=== PATIENT | male | born 1960 | race Caucasian/White ===

== ENCOUNTER 2016-10-30 12:40 | Inpatient (IN) | payer MEDICAID ==
[~2016-10-30] VITALS: Ht 167.6 cm; Wt 65.3 kg
[2016-10-30] VITALS (23 sets, daily range): BP systolic 163–244; BP diastolic 108–177
[2016-10-30] MEDS ORDERED: ALBUTEROL SULFATE/IPRATROPIU 3 ML SOL IH STA (12:47)
--- NOTE | 2016-10-30 12:58 | NUR ---
Patient transferred to bed 3 via wheelchair by tech. MENG evaluating patient at bedside. Addendum: 10/30/16 at 1306 by [facility] PER BLAYNE WREN ORDER PER ORAL.
--- NOTE | 2016-10-30 13:00 | NUR ---
56M BIB SELF C/O SHORTNESS OF BREATH X 4 DAYS; PT NOTED WITH GENERALIZED EDEMA, WITH +2 PITTING EDEMA NOTED TO BILATERAL LOWER EXTREMITIES AT THIS TIME; BL LUNG SOUNDS CLEAR, RR LABORED, DEEP, AND TACHYPNIC AT THIS TIME; PT AA&OX4, PERRLA; PT STATES NO PAIN, N/V/D AT THIS TIME; ABDOMEN FIRM, ROUND, ASCITIC, HYPOACTIVE BOWEL SOUNDS X 4 QUADRANTS; PT NOTED WITH HEALED "BUG BITES" TO ABDOMEN, AND HEALING "BUG BITES" TO BL LEGS; PT STATES " THEY ARE BUG BITES"; NO BLEEDING NOTED TO SITES AT THIS TIME; CLEAR DRAINAGE NOTED TO BL LOWER EXTREMITIES AT THIS TIME; PT PLACED ON MONITOR, RESTING IN BED WITH HOB ELEVATED AND IN LOWEST POSITION; POSITIONED FOR COMFORT; ER MD MADE AWARE OF STATUS. WILL CONTINUE TO MONITOR
--- NOTE | 2016-10-30 13:03 | NUR ---
ADMINISTERED NITROSTAT 0.4 MG SL.
[2016-10-30] MEDS ORDERED: NITROGLYCERIN 0.4 MG TAB SL ONE ×2 (13:05→13:10)
[2016-10-30] MEDS ORDERED: FUROSEMIDE 40 MG/4 ML VIAL IVP ONE (13:15)
[2016-10-30] MEDS ORDERED: NITROGLYCERIN 50 MG/D5W PREMIX 250 ML IV ONE (13:20)
[2016-10-30 13:46] LABS: BASOPHILS # (AUTO) 0.2 K/uL (0.00-0.22); BASOPHILS % (AUTO) 1.9 % (0.0-2.0); EOSINOPHILS # (AUTO) 0.1 K/uL (0-0.4); EOSINOPHILS % (AUTO) 1.2 % (0.0-4.0); HEMATOCRIT 44.8 % (36-52); HEMOGLOBIN 14.4 g/dL (12.0-18.0); LYMPHOCYTES # (AUTO) 0.6 K/uL (2.0-11.5); LYMPHOCYTES % (AUTO) 7.1 % (20.5-51.1); MEAN CORPUSCULAR HEMOGLOBIN 29 pg (27-31); MEAN CORPUSCULAR HGB CONC 32 g/dL (33-37); MEAN CORPUSCULAR VOLUME 90 fL (80-94); MONOCYTES # (AUTO) 0.4 K/uL (0.8-1.0); MONOCYTES % (AUTO) 5.3 % (1.7-9.3); NEUTROPHILS % (AUTO) 84.5 % (42.2-75.2); PLATELET COUNT (AUTO) 345 K/uL (140-450); RED BLOOD CELL COUNT(AUTO) 4.98 MIL/uL (4.20-6.10); RED CELL DISTRIBUTION WIDTH 14.9 % (11.6-13.7)
--- NOTE | 2016-10-30 13:47 | NUR ---
# 16 FR Bailey catheter with 10 ml utilizing sterile technique. Immediate return of 600 ml YELLOW urine noted. Bedside drainage bag placed below level of bladder. Urine sample collected and sent to lab. Pt tolerated procedure WELL.
[2016-10-30] MEDS: NACL 0.9% 1,000 ML IV SCH (13:51)
[2016-10-30] MEDS ORDERED: ONDANSETRON 4 MG/2 ML VIAL IVP PRN (13:55)
[2016-10-30] MEDS ORDERED: HYDROcodone/APAP 7.5/325 MG 1 TAB PO PRN (13:55)
[2016-10-30 13:57] LABS: WHITE BLOOD COUNT (AUTO) 8.3 K/uL (4.8-10.8)
[2016-10-30 14:03] LABS: ANION GAP 17.4 (8-16); CALCIUM 8.8 mg/dL (8.5-10.1); CREATININE 1.5 mg/dL (0.7-1.3); POTASSIUM 3.4 mmol/L (3.5-5.1)
[2016-10-30 14:06] LABS: INR 1.1 (0.8-1.2); PROTHROMBIN TIME 11.1 secs (10.8-13.4)
[2016-10-30 14:10] LABS: ALBUMIN 2.9 g/dL (3.4-5.0); TOTAL BILIRUBIN 0.6 mg/dL (0.0-1.0); TOTAL PROTEIN, SERUM 6.6 g/dL (6.4-8.2)
--- NOTE | 2016-10-30 14:10 | NUR ---
CALLED TO GIVE REPORT TO ICU; ICU STATES CANNOT TAKE REPORT AT THIS TIME, WILL CALL BACK WHEN READY TO TAKE REPORT.
[2016-10-30 14:19] LABS: LACTIC ACID 2.7 mmol/L (0.4-2.0)
[2016-10-30] MEDS ORDERED: DEXTROSE 50% 50 ML SYR IVP PRN (14:35)
[2016-10-30 14:40] LABS: APPEARANCE,URINE CLEAR (CLEAR); BILIRUBIN,URINE NEGATIVE (NEGATIVE); BLOOD, URINE 1+ (NEGATIVE); COLOR,URINE YELLOW (YELLOW); LEUKOCYTE ESTERASE ,URINE NEGATIVE (NEGATIVE); NITRITE, URINE NEGATIVE (NEGATIVE); PH,URINE 6.5 (5.0-9.0); PROTEIN,URINE 1+ (NEGATIVE); UGLUCOSE NEGATIVE (NEGATIVE); UROBILINOGEN,URINE 0.2 EU/dL (0.2 - 1)
[2016-10-30 14:51] LABS: AMPHETAMINE, URINE NEG. ng/ml (NEG <=1000); BARBITURATE, URINE NEG. ng/ml (NEG <=200); BENZODIAZEPINE, URINE NEG. ng/mL (NEG <=200); CANNABINOID, URINE NEG. ng/mL (NEG <=50); COCAINE, URINE NEG. ng/mL (NEG <=300); OPIATE, URINE NEG. ng/mL (NEG <=2000); PHENCYCLIDINE SCREEN,URINE NEG. ng/mL (NEG <=25)
[2016-10-30 14:54] LABS: CHOL/HDL RATIO 2.5 (1-4.5); FREE T4 (FREE THYROXINE) 1.1 ng/dL (0.76-1.46); MAGNESIUM 1.7 mg/dL (1.8-2.4); PHOSPHORUS 3.8 mg/dL (2.5-4.9); THYROID STIMULATING HORMONE 2.09 uIU/mL (0.34-3.74)
[2016-10-30 14:56] LABS: BACTERIA,URINE None Seen /HPF (None Seen); RBC,URINE 3-10 (FEW) /HPF (0-5); SQUAMOUS EPITHELIAL CELL,UR None Seen /LPF (0-3 (FEW)); WBC,URINE 0-5 (RARE) /HPF (0-5)
[2016-10-30] MEDS ORDERED: FUROSEMIDE 40 MG/4 ML VIAL IVP SCH ×2 (14:58→21:10)
--- NOTE | 2016-10-30 15:19 | NUR ---
REPORT GIVEN TO YUSRA FINNEY.
[2016-10-30] MEDS ORDERED: ALBUTEROL SULFATE/IPRATROPIU 3 ML SOL IH PRN (15:45)
--- NOTE | 2016-10-30 15:51 | NUR ---
PT APPEARS TO BE RESTING COMFORTABLY IN BED; PT STATES " I FEEL A LOT BETTER"; RR EVEN/UNLABORED AT THIS TIME; POSITIONED FOR COMFORT; WILL CONTINUE TO MONITOR.
[2016-10-30] MEDS ORDERED: LORazepam 2 MG/ML VIAL IVP PRN (15:55)
[2016-10-30] MEDS ORDERED: LORazepam 1 MG TAB PO PRN (15:55)
[2016-10-30] MEDS: ACETAMINOPHEN 325 MG TAB PO PRN (16:28)
--- NOTE | 2016-10-30 16:29 | NUR ---
PT STATES HAS HEADACHE; ADMINISTERED TYLENOL FOR HEADACHE PER ADMITING MD ORDER; PT POSITIONED FOR COMFORT; WILL CONTINUE TO MONITOR. Addendum: 10/30/16 at 1630 by Chief TrunkHAILEY BLAYNE WREN NOTIFIED.
--- NOTE | 2016-10-30 16:34 | NUR ---
PER ICU, PT CAN BE TRANSFERRED IN 30-45 MINUTES; WILL CONTINUE TO MONITOR.
[2016-10-30] MEDS ORDERED: MAG SULF 2000 MG/WATER PREMIX 50 ML IV SCH (16:49)
[2016-10-30] MEDS ORDERED: LACTULOSE 20 GM/30 ML UDC PO SCH ×2 (16:51→21:15)
--- NOTE | 2016-10-30 17:17 | NUR ---
4050 ML OF YELLOW URINE EMPTIED FROM LOAIZA CATHETER AT THIS TIME; ER MD DR. WREN AND SPINNER CAP FRAME NOTIFIED; WILL CONTINUE TO MONITOR.
[2016-10-30] MEDS ORDERED: METOPROLOL 5 MG/5 ML VIAL IV PRN (17:20)
[2016-10-30] MEDS ORDERED: hydrALAZINE 20 MG/ML VIAL IVP PRN (17:20)
--- NOTE | 2016-10-30 17:29 | NUR ---
APatient will be admitted to care of DR. CROW. Admited to ICU. Will go to room ICU 2. Belongings list completed. Report to YUSRA FINNEY.
--- NOTE | 2016-10-30 17:45 | NUR ---
RECEIVED PATIENT FROM ED WITH CHIEF COMPLAINTS OF CHF EXACERBATION. PATIENT IS AWAKE, ORIENTED TO PERSON, PLACE, DATE AND TIME. SKIN WARM TO TOUCH WNL, TOENAILS, SLIGHTLY THICKENED, +2 EDEMA OF BILATERAL LOWER EXTREMITY TO ABDOMEN NOTED. FC 16FR PATENT AND INTACT TO LIGHT YELLOW URINE IN MODERATE AMOUNT. RIGHT WRIST PERIPHERAL IV G20 PATENT AND INTACT WITH NITROGLYCERIN AT 50 MCG/H. ORIENTED TO TV, CALL LIGHT AND BED CONTROL. CALL LIGHT WITHIN REACH. MADE COMFORTABLE IN BED. WILL CONTINUE TO MONITOR.
--- NOTE | 2016-10-30 17:48 | NUR ---
BP 197/135 INCREASED NITROGLYCERIN DRIP TO 55 MCG/MIN FROM 50 MCG/MIN. CONTINUE TO MONITOR BP CLOSELY.
--- NOTE | 2016-10-30 18:12 | NUR ---
BP 174/124 SINUS RHYTHM ON MONITOR. PATIENT DENIES PAIN. LOAIZA CATH IN PLACE AND DRAINING WITH GOOD AMT OF CLEAR YELLOW URINE.
--- NOTE | 2016-10-30 18:40 | NUR ---
BP 207/135 IN CREASED NITROGLYCERIN DRIP TO 60 MCG/MIN. PATIENT IS TALKATIVE AND STATES THAT HE FEELS LITTLE ANXIOUS. DENIES PAIN. GIVEN PATIENT EMOTIONAL SUPPORT AND REASSURE PATIENT.
--- NOTE | 2016-10-30 19:30 | NUR ---
RECEIVED PATIENT ON BED IN SITTING POSITION; AWAKE ALERT AND ORIENTED; ABLE TO MOVE LIMBS FREELY. CARDIACSCOPE SHOWS ON SINUS RHYTHM NO ARRHYTHMIAS SEEN. WITH PITTING EDEMA ON ALL EXTREMITIES INCLUDING ABDOMEN AND GENITAL AREA. COMMENCING ON IV NITROGLYCERIN TITRATED TO MAINTAIN BP PER PROTOCOL. ABDOMEN IS SOFT, EDEMA NOTED. WITH LOAIZA CATH IN PLACE DRAINING TO LARGE AMOUNT OF CLEAR YELLOW URINE OUTPUT; INTACT.
--- NOTE | 2016-10-30 19:30 | NUR ---
REPORT GIVEN TO NIGHT RN FOR CONTINUITY OF CARE.
[2016-10-30] MEDS: ALBUTEROL SULFATE/IPRATROPIU 3 ML SOL IH SCH (19:42)
[2016-10-30] MEDS ORDERED: POTASSIUM CHLORIDE 40 MEQ, LIDOCAINE 1% 25 MG in NACL 0.9% 250 ML IV SCH (20:00)
[2016-10-30] MEDS: LEVOFLOXACIN 750 MG/D5W PREMIX 150 ML IV SCH (20:17)
[2016-10-30] MEDS ORDERED: CLINDAMYCIN 600 MG/4 ML VIAL ONE (20:49)
[2016-10-30] MEDS: SPIRONOLACTONE 25 MG TAB PO SCH (20:54)
[2016-10-30] MEDS: FUROSEMIDE 40 MG/4 ML VIAL IVP SCH (20:56)
[2016-10-30] MEDS: BLOOD GLUCOSE MONITORING 1 DEV DEV FS SCH (21:00)
[2016-10-30] MEDS ORDERED: METOPROLOL 25 MG TAB PO SCH (21:00)
[2016-10-30] MEDS ORDERED: CARVEDILOL 3.125 MG TAB PO SCH (21:00)
--- NOTE | 2016-10-30 21:00 | NUR ---
SNACKS GIVEN; ATE WITH [employer].
[2016-10-30] MEDS ORDERED: LIDOCAINE 1% 0 ML ONE (21:30)
--- NOTE | 2016-10-30 21:30 | NUR ---
ACCUCHECK DONE; NO INSULIN GIVEN PER SLIDING SCALE.
[2016-10-30] MEDS ORDERED: LIDOCAINE 1% 50 ML ONE (21:34)
[2016-10-30] MEDS ORDERED: KCL 20 MEQ/WATER INJ PREMIX 200 ML IV SCH (21:35)
[2016-10-30] MEDS: DOCUSATE SODIUM 100 MG GELCAP PO SCH (21:37)
[2016-10-30] MEDS: ATORVASTATIN 20 MG TAB PO SCH (21:38)
[2016-10-30] MEDS: LORazepam 1 MG TAB PO SCH (21:38)
[2016-10-30] MEDS: CLINDAMYCIN 300 MG in DEXTROSE 5% 50 ML IV SCH (21:42)
--- NOTE | 2016-10-30 23:25 | NUR ---
ENDORSED TO RN CLARIZE FOR CONTINUITY OF CARE.
--- NOTE | 2016-10-30 23:30 | NUR ---
RECEIVED REPORT FROM YUSRA TENORIO. INITIAL ASSESSMENT COMPLETED. PT AWAKE, ALERT, ORIENTED X4. PT IS ON O2 @ 2LPM VIA NASAL CANNULA. ATTACHED TO CABIN CLEANER, PULSE OXIMETER. IV ACCESS AT RIGHT AC 20G, ON NITROGLYCERINE DRIP, PATENT, INTACT AND RIGHT WRIST 18G, PATENT, INTACT. LOAIZA CATH IN PLACE. BOTH LOWER EXTREMITIES PITTING EDEMA 3+, SCROTAL EDEMA NOTED. BED IN LOW POSITION, SAFETY MEASURE ENSURE. PT RESTING COMFORTABLY ON BED. WILL CONTINUE TO MONITOR.
[2016-10-31] VITALS (87 sets, daily range): BP systolic 117–184; BP diastolic 63–120
--- NOTE | 2016-10-31 | NUR ---
DR. SWEENEY AWARE OF PT'S BLOOD PRESSURE. NO NEW ORDERS MADE. WILL CONTINUE TO MONITOR PT.
[2016-10-31] MEDS: NITROGLYCERIN 50 MG/D5W PREMIX 250 ML IV PRN ×4 (00:05→15:56)
[2016-10-31] MEDS: ACETAMINOPHEN 325 MG TAB PO PRN (00:15)
[2016-10-31] MEDS: CLINDAMYCIN 300 MG in DEXTROSE 5% 50 ML IV SCH ×5 (00:59→23:30)
[2016-10-31] MEDS: ALBUTEROL SULFATE/IPRATROPIU 3 ML SOL IH SCH ×4 (01:05→19:21)
--- NOTE | 2016-10-31 02:45 | NUR ---
NO SIGNS OF DISTRESS AT THIS TIME. WILL CONTINUE TO MONITOR
--- NOTE | 2016-10-31 05:00 | NUR ---
PT ASSISTED WITH MORNING CARE. PT TOLERATED WELL.
[2016-10-31] MEDS: LORazepam 1 MG TAB PO SCH ×3 (05:15→21:39)
--- NOTE | 2016-10-31 05:55 | NUR ---
DR. STEPHENS AT BEDSIDE, UPDATED OF PT'S CONDITION AND PT'S BP. Addendum: 10/31/16 at 0822 by Sid Monreal RN DR. STEPHENS AWARE OF PT'S TOTAL INTAKE AND OUTPUT.
[2016-10-31] MEDS: PANTOPRAZOLE 40 MG TABEC PO SCH (06:40)
[2016-10-31] MEDS: BLOOD GLUCOSE MONITORING 1 DEV DEV FS SCH ×4 (06:48→21:07)
[2016-10-31 06:58] LABS: BASOPHILS # (AUTO) 0.1 K/uL (0.00-0.22); BASOPHILS % (AUTO) 1.4 % (0.0-2.0); EOSINOPHILS # (AUTO) 0.2 K/uL (0-0.4); EOSINOPHILS % (AUTO) 2.2 % (0.0-4.0); HEMATOCRIT 38.7 % (36-52); HEMOGLOBIN 12.9 g/dL (12.0-18.0); LYMPHOCYTES # (AUTO) 0.8 K/uL (2.0-11.5); LYMPHOCYTES % (AUTO) 10.4 % (20.5-51.1); MEAN CORPUSCULAR HEMOGLOBIN 30 pg (27-31); MEAN CORPUSCULAR HGB CONC 33 g/dL (33-37); MEAN CORPUSCULAR VOLUME 90 fL (80-94); MONOCYTES # (AUTO) 0.8 K/uL (0.8-1.0); MONOCYTES % (AUTO) 10.3 % (1.7-9.3); NEUTROPHILS # (AUTO) 5.6 K/uL (1.8-7.7); NEUTROPHILS % (AUTO) 75.7 % (42.2-75.2); PLATELET COUNT (AUTO) 290 K/uL (140-450); RED BLOOD CELL COUNT(AUTO) 4.29 MIL/uL (4.20-6.10); RED CELL DISTRIBUTION WIDTH 14.6 % (11.6-13.7); WHITE BLOOD COUNT (AUTO) 7.5 K/uL (4.8-10.8)
--- NOTE | 2016-10-31 07:20 | NUR ---
REPORT GIVEN TO YUSRA HERNANDEZ FOR CONTINUITY OF CARE.
--- NOTE | 2016-10-31 07:23 | NUR ---
RECEIVED REPORT FROM YUSRA BARRON. NO SIGNS OF ACUTE DISTRESS AT THIS TIME. NO C/O PAIN. PT IS ON O2 2L/MIN NC. IV TO RIGHT WRIST #18 AND RIGHT AC #20 PATENT AND INTACT. PT IS ON NITROGLYCERIN DRIP. RASHES/SCABS NOTED TO BILATERAL LOWER EXTREMITIES. SKIN IS OTHERWISE INTACT. LOAIZA CATHETER IN PLACE DRAINING TO GRAVITY DRAINAGE BAG. SAFETY PRECAUTIONS IN PLACE WITH BED IN LOWEST POSITION AND SIDERAILS UP. CALL LIGHT WITHIN REACH. WILL CONTINUE TO MONITOR.
[2016-10-31 07:25] LABS: MAGNESIUM 1.8 mg/dL (1.8-2.4); PHOSPHORUS 3.6 mg/dL (2.5-4.9)
--- NOTE | 2016-10-31 07:53 | NUR ---
PT UP EATING BREAKFAST WITH NO ISSUES.
[2016-10-31] MEDS: NACL 0.9% 1,000 ML IV SCH ×2 (07:55→13:10)
--- NOTE | 2016-10-31 07:55 | NUR ---
DR. PELLETIER' GROUP IN TO SEE PT. WILL FOLLOW UP ON ORDERS.
[2016-10-31 07:57] LABS: ANION GAP 11.2 (8-16); CALCIUM 8.1 mg/dL (8.5-10.1); CARBON DIOXIDE 29.1 mmol/L (21-32); CREATININE 1.3 mg/dL (0.7-1.3); POTASSIUM 3.3 mmol/L (3.5-5.1)
--- NOTE | 2016-10-31 08:31 | NUR ---
PATIENT HAS BEEN SCREENED AND CATEGORIZED HIGH NUTRITION RISK. PATIENT WILL BE SEEN WITHIN 1-2 DAYS OF ADMISSION. 10/31/16-11/01/[address]
[2016-10-31] MEDS: FUROSEMIDE 40 MG/4 ML VIAL IVP SCH ×2 (08:41→16:39)
[2016-10-31] MEDS: FOLIC ACID 1 MG TAB PO SCH (08:41)
[2016-10-31] MEDS: LACTOBACILLUS RHAMNOSUS GG 1 EACH CAP PO SCH (08:41)
[2016-10-31] MEDS: DOCUSATE SODIUM 100 MG GELCAP PO SCH ×2 (08:41→21:38)
[2016-10-31] MEDS: LISINOPRIL 20 MG TAB PO SCH (08:42)
[2016-10-31] MEDS: THIAMINE 100 MG TAB PO SCH (08:42)
[2016-10-31] MEDS: ASPIRIN 81 MG TAB.CHEW PO SCH (08:42)
[2016-10-31] MEDS: SPIRONOLACTONE 25 MG TAB PO SCH ×2 (08:42→16:38)
[2016-10-31] MEDS: CARVEDILOL 6.25 MG TAB PO SCH ×2 (08:43→21:39)
[2016-10-31] MEDS: MULTIVITAMIN 1 TAB PO SCH (08:43)
--- NOTE | 2016-10-31 08:45 | NUR ---
CHECKED BP: 176/105, AND HR: 86. ADMINISTERED MEDICATION ORDERED. PT TOLERATED WELL.
[2016-10-31] MEDS ORDERED: LISINOPRIL 5 MG TAB PO SCH ×2 (09:00)
[2016-10-31] MEDS ORDERED: PANTOPRAZOLE 40 MG INJ VIAL IVP SCH (09:00)
[2016-10-31] MEDS ORDERED: POTASSIUM CHLORIDE 40 MEQ, LIDOCAINE 1% 25 MG in NACL 0.9% 250 ML IV SCH ×2 (09:00→17:00)
--- NOTE | 2016-10-31 11:00 | NUR ---
PT TO CT
--- NOTE | 2016-10-31 11:17 | NUR ---
PT BACK FROM CT AND PLACED ON THE MONITOR
[2016-10-31] MEDS: INSULIN LISPRO SLIDING SCALE 100 UNITS/ML VIAL SUBQ PRN (12:13)
--- NOTE | 2016-10-31 12:13 | NUR ---
PT TOLERATED MEDS WELL.
--- NOTE | 2016-10-31 13:01 | NUR ---
PT UP AND EATING LUNCH WITH NO ISSUES
--- NOTE | 2016-10-31 13:55 | NUR ---
10/31/16 RD INITIAL ASSESSMENT COMPLETED PLEASE REFER TO NUTRITION ASSESSMENT UNDER CARE ACTIVITY FOR ESTIMATED NUTRITIONAL NEEDS. 1. CONTINUE 60GM CONSISTENT CARBOHYDRATE, CARDIAC DIET 2. RD TO FOLLOW UP IN 2-3 DAYS; HIGH RISK ALECIA LAL RD
--- NOTE | 2016-10-31 15:30 | NUR ---
ALL NEEDS MET AT THIS TIME. CALL LIGHT WITHIN REACH. WILL CONTINUE TO MONITOR.
[2016-10-31 16:01] LABS: CARBON DIOXIDE 33.2 mmol/L (21-32); CREATININE 1.3 mg/dL (0.7-1.3); POTASSIUM 3.2 mmol/L (3.5-5.1)
--- NOTE | 2016-10-31 16:02 | NUR ---
PT RESTING AT THIS TIME, AROUSABLE. CALL LIGHT WITHIN REACH.
[2016-10-31] MEDS ORDERED: PNEUMOCOCCAL VACCINE 23 MCG/0.5 ML VIAL IMVAC SCH (16:20)
[2016-10-31] MEDS ORDERED: POTASSIUM CHLORIDE 20% 40 MEQ/15 ML UDC PO SCH (16:26)
--- NOTE | 2016-10-31 16:49 | NUR ---
CHECKED BP: 157/84. ADMINISTERED MEDICATION ORDERED. PT TOLERATED WELL.
--- NOTE | 2016-10-31 16:50 | NUR ---
PT ASSISTED TO BEDSIDE COMMODE. SMALL BOWEL MOVEMENT, BROWN IN COLOR. PROVIDED HYGIENE CARE.
--- NOTE | 2016-10-31 17:03 | NUR ---
DR. NINA IN TO SEE PT. WILL FOLLOW UP ON ORDERS.
[2016-10-31] MEDS ORDERED: NITROGLYCERIN 50 MG/D5W PREMIX 250 ML IV PRN (17:20)
[2016-10-31] MEDS ORDERED: hydrALAZINE 20 MG/ML VIAL IVP PRN ×2 (17:35→17:45)
[2016-10-31] MEDS ORDERED: hydrALAZINE 20 MG/ML VIAL IVP SCH (17:36)
--- NOTE | 2016-10-31 18:18 | NUR ---
PT UP AND EATING DINNER WITH NO ISSUES. CALL LIGHT WITHIN REACH. WILL CONTINUE TO MONITOR.
--- NOTE | 2016-10-31 18:53 | NUR ---
CHECKED ON PT. ALL NEEDS MET AT THIS TIME. CALL LIGHT WITHIN REACH. WILL CONTINUE TO MONITOR.
--- NOTE | 2016-10-31 19:26 | NUR ---
ENDORSED CARE TO YUSRA GALAVIZ. PT IN STABLE CONDITION.
--- NOTE | 2016-10-31 19:27 | NUR ---
RECEIVED REPORT FROM MARY RN AT BEDSIDE, PT AAOX4, ABLE TO FOLLOW COMMANDS. DENIES PAIN, VSS. NO S/S OF SOB/DISTRESS, BREATHING EVEN AND UNLABORED, CLEAR LUNG SOUNDS, O2 AT 2L VIA NC. DENIES CHEST PAIN, SR ON CARE WORKER, SOFT ABDOMEN WITH ACTIVE BOWEL SOUNDS, LOAIZA CATHETER IN PLACE WITH CLEAR YELLOW URINE NOTED. GENERALIZED WEAKNESS NOTED, AFEBRILE, SKIN IS INTACT, WARM AND DRY TO TOUCH, PERIPHERAL LINE TO RIGHT AC 20GA RUNNING NITRO DRIP, PERIPHERAL LINE TO RIGHT HAND 18GA RUNNING NS AT 10ML/HR. PT IS ABLE TO SELF TURN IN BED, EXPLAINED POC TO PT, PT VERBALIZED UNDERSTANDING, SAFETY MEASURES MAINTAINED, HOB ELEVATED 30 DEGREES, WILL CONTINUE TO MONITOR.
[2016-10-31] MEDS: ATORVASTATIN 20 MG TAB PO SCH (21:38)
--- NOTE | 2016-10-31 22:00 | NUR ---
NITROGLYCERIN DRIP STOPPED PER MD ORDER, VSS.
[2016-11-01] VITALS (7 sets, daily range): BP systolic 126–165; BP diastolic 72–109
--- NOTE | 2016-11-01 | NUR ---
PT IS ASLEEP IN BED, NO CHANGE OF CONDITION AT THIS TIME, VSS.
[2016-11-01] MEDS: ALBUTEROL SULFATE/IPRATROPIU 3 ML SOL IH SCH ×2 (01:00→19:00)
--- NOTE | 2016-11-01 01:26 | NUR ---
0114 HHNTX NOT GIVEN AT THIS TIME. PT ASLEEP. PT DID NOT WANT TO BE DISTURBED IF ASLEEP
--- NOTE | 2016-11-01 02:00 | NUR ---
PT IS ASLEEP, NO S/S OF DISTRESS, VSS.
--- NOTE | 2016-11-01 04:00 | NUR ---
PT IS ASLEEP, BP 165/109, PRN MEDICATION GIVEN, WILL RECHECK BP. PT REFUSED AM CARE AT THIS TIME, STATED WILL DO LATER IN THE MORNING.
[2016-11-01 04:57] LABS: HEMATOCRIT 40.3 % (36-52); HEMOGLOBIN 13.2 g/dL (12.0-18.0); MEAN CORPUSCULAR HEMOGLOBIN 30 pg (27-31); MEAN CORPUSCULAR HGB CONC 33 g/dL (33-37); MEAN CORPUSCULAR VOLUME 90 fL (80-94); PLATELET COUNT (AUTO) 281 K/uL (140-450); RED BLOOD CELL COUNT(AUTO) 4.47 MIL/uL (4.20-6.10); RED CELL DISTRIBUTION WIDTH 14.9 % (11.6-13.7); WHITE BLOOD COUNT (AUTO) 6.4 K/uL (4.8-10.8)
[2016-11-01] MEDS: LORazepam 1 MG TAB PO SCH ×3 (04:58→22:02)
[2016-11-01] MEDS: CLINDAMYCIN 300 MG in DEXTROSE 5% 50 ML IV SCH ×3 (05:20→17:11)
[2016-11-01 05:21] LABS: CALCIUM 7.9 mg/dL (8.5-10.1); CREATININE 1.2 mg/dL (0.7-1.3)
[2016-11-01] MEDS ORDERED: LACTULOSE 20 GM/30 ML UDC PO SCH (05:30)
--- NOTE | 2016-11-01 06:00 | NUR ---
VSS, NO CHANGE OF CONDITION AT THIS TIME.
[2016-11-01 06:03] LABS: CARBON DIOXIDE 28.6 mmol/L (21-32); POTASSIUM 3.6 mmol/L (3.5-5.1)
[2016-11-01 06:36] LABS: BAND % (MANUAL) 1 % (0-8); EOSINOPHILS % (MANUAL) 1 % (0-4); LYMPHOCYTES % (MANUAL) 18 % (20-46); MONOCYTES % (MANUAL) 7 % (5-12); NEUTROPHILS % (MANUAL) 73 (43-65)
[2016-11-01 06:37] LABS: PLATELET ESTIMATE ADEQUATE
[2016-11-01] MEDS: PANTOPRAZOLE 40 MG TABEC PO SCH (06:47)
[2016-11-01] MEDS: BLOOD GLUCOSE MONITORING 1 DEV DEV FS SCH ×4 (06:53→21:00)
--- NOTE | 2016-11-01 07:15 | NUR ---
REPORT GIVEN TO YUSRA HERNANDEZ AT BEDSIDE, PT IS IN STABLE CONDITION AT THIS TIME.
--- NOTE | 2016-11-01 07:16 | NUR ---
RECEIVED REPORT FROM YUSRA GALAVIZ. NO SIGNS OF ACUTE DISTRESS NOTED AT THIS TIME. PT DENIES PAIN. PT IS AAOX4. PT IS ON O2 3L/MIN NC. IV TO RIGHT WRIST #18 AND RIGHT AC #20 PATENT AND INTACT. PT IS CURRENTLY SINUS RHYTHM ON THE MONITOR. SMALL SCABS NOTED TO BILATERAL LOWER EXTREMITIES, SKIN IS OTHERWISE INTACT. LOAIZA CATHETER IN PLACE DRAINING TO GRAVITY DRAINAGE BAG. SAFETY PRECAUTIONS IN PLACE WITH BED IN LOWEST POSITION AND SIDE RAILS UP. CALL LIGHT WITHIN REACH. WILL CONTINUE TO MONITOR.
--- NOTE | 2016-11-01 08:01 | NUR ---
DID NOT GIVE HHN TX. PT IS ABOUT TO EAT BREAKFAST AND DOESN'T WANT IT AT THIS TIME. WILL CONTINUE TO MONITOR.
[2016-11-01] MEDS: LACTOBACILLUS RHAMNOSUS GG 1 EACH CAP PO SCH (08:07)
[2016-11-01] MEDS: FUROSEMIDE 40 MG/4 ML VIAL IVP SCH ×2 (08:07→16:37)
[2016-11-01] MEDS: FOLIC ACID 1 MG TAB PO SCH (08:08)
[2016-11-01] MEDS: DOCUSATE SODIUM 100 MG GELCAP PO SCH ×2 (08:08→22:02)
[2016-11-01] MEDS: ASPIRIN 81 MG TAB.CHEW PO SCH (08:08)
[2016-11-01] MEDS: THIAMINE 100 MG TAB PO SCH (08:08)
[2016-11-01] MEDS: LISINOPRIL 20 MG TAB PO SCH (08:09)
[2016-11-01] MEDS: POTASSIUM CHLORIDE 20% 40 MEQ/15 ML UDC PO SCH (08:09)
[2016-11-01] MEDS: SPIRONOLACTONE 25 MG TAB PO SCH ×2 (08:09→16:38)
[2016-11-01] MEDS: MULTIVITAMIN 1 TAB PO SCH (08:09)
[2016-11-01] MEDS: CARVEDILOL 6.25 MG TAB PO SCH ×2 (08:22→22:03)
--- NOTE | 2016-11-01 08:38 | NUR ---
CHECKED BP: 143/99, HR: 95. ADMINISTERED MEDICATION ORDERED. PT TOLERATED WELL. PT'S SON, NICOL, PRESENT AT BEDSIDE.
--- NOTE | 2016-11-01 09:42 | NUR ---
PT SATTING AT 96% ON ROOM AIR. WILL CONTINUE TO MONITOR.
--- NOTE | 2016-11-01 10:20 | NUR ---
DR. MARTINEZ IN TO SEE PT. WILL FOLLOW UP ON ORDERS.
--- NOTE | 2016-11-01 11:30 | NUR ---
PT HAD MODERATE SIZED BOWEL MOVEMENT. HYGIENE CARE PROVIDED.
--- NOTE | 2016-11-01 11:47 | NUR ---
LOAIZA CATHETER DISCONTINUED ORDERED. 10ML REMOVED TO DEFLATE BALLOON. 2000ML OF CLEAR YELLOW URINE OUTPUT VOIDED IN BAG CURRENTLY. PT TOLERATED WELL. PROVIDED BEDSIDE URINAL. CALL LIGHT WITHIN REACH. WILL CONTINUE TO MONITOR.
--- NOTE | 2016-11-01 12:24 | NUR ---
PT TOLERATED MEDS WELL.
--- NOTE | 2016-11-01 13:42 | NUR ---
PT REFUSED HHN TX. HE SAID HE WANTS TO SLEEP. WILL CONTINUE TO MONITOR.
[2016-11-01] MEDS: NACL 0.9% 1,000 ML IV SCH (13:50)
--- NOTE | 2016-11-01 14:22 | NUR ---
CHECKED ON PT. RESTING AT THIS TIME, AROUSABLE. CALL LIGHT WITHIN REACH. WILL CONTINUE TO MONITOR.
--- NOTE | 2016-11-01 16:30 | NUR ---
PT TO BE TRANSFERRED TO TELEMETRY, ROOM 111A. REPORT GIVEN TO YUSRA VILLAR. ALL QUESTIONS ANSWERED.
[2016-11-01] MEDS: INSULIN LISPRO SLIDING SCALE 100 UNITS/ML VIAL SUBQ PRN (16:40)
--- NOTE | 2016-11-01 16:47 | NUR ---
CHECKED BP: 165/104. ADMINISTERED LASIX AND ALDACTONE ORDERED. PT TOLERATED WELL.
[2016-11-01] MEDS ORDERED: amLODIPine 5 MG TAB PO SCH (16:55)
--- NOTE | 2016-11-01 17:02 | NUR ---
RECHECKED BP: 143/99
--- NOTE | 2016-11-01 17:07 | NUR ---
SPOKE WITH TELEMETRY NURSEJIAN. WILL ADMINISTER AMLODIPINE ORDERED AND REASSESS BEFORE TRANSFER.
--- NOTE | 2016-11-01 17:14 | NUR ---
CHECKED BP: 166/111. ADMINISTERED AMLODIPINE ORDERED. PT TOLERATED WELL. WILL REASSESS
--- NOTE | 2016-11-01 17:22 | NUR ---
RECHECKED BP: 151/98
--- NOTE | 2016-11-01 17:34 | NUR ---
CALLED [employer] TO INFORM OF NEED OF ASSISTANCE WITH PT TRANSFER.
--- NOTE | 2016-11-01 17:50 | NUR ---
CLINICAL ABSTRACTOR, JULIEN, ARRIVED TO UNIT TO HELP TRANSPORT THE PT. ALL BELONGINGS IN PT POSSESSION. PT IN STABLE CONDITION.
--- NOTE | 2016-11-01 18:00 | NUR ---
RECEIVED PT FROM ICU. PT SITUATED IN ROOM 111A. PT IS AWAKE AND ALERT, VERBALLY RESPONSIVE. BREATHING EVEN AND UNLABORED. PT DENIED ANY CHEST PAIN, SOB, OR ANY DISCOMFORT. RIGHT AC #20G AND RIGHT FA 18G IV ACCESSES INTACT AND PATENT. INTACT SKIN. DISCUSSED PLAN OF CARE WITH PT AND HE VERBALIZED UNDERSTANDING. BED IN LOW POSITION. CALL LIGHT WITHIN REACH.
[2016-11-01] MEDS: LEVOFLOXACIN 750 MG/D5W PREMIX 150 ML IV SCH (18:26)
--- NOTE | 2016-11-01 18:30 | NUR ---
PT IS NOT IN ICU, HE IS IN ROOM 111 ON TELI, BUT HE REFUSED HHN , HE TOLD ME THAT HIS TIRED AT THIS TIME
--- NOTE | 2016-11-01 19:30 | NUR ---
RECEIVED PT FROM PIPPA RN PT IS AAOX4 AMBULATORY; IV ON LEFT WRIST INFUSING WELL, ON TELEMETRY SR VOIDING WELL ON URINAL INITIAL ASSESSMENT DONE
--- NOTE | 2016-11-01 21:30 | NUR ---
BLOOD SUGAR TEST 92 PT IS PROVIDER HS SNACK NOT DISTRESS NOTED AT THIS TIME
[2016-11-01] MEDS: ATORVASTATIN 20 MG TAB PO SCH (22:04)
[2016-11-02] VITALS: BP 150/80
[2016-11-02] MEDS: CLINDAMYCIN 300 MG in DEXTROSE 5% 50 ML IV SCH ×4 (00:22→17:33)
--- NOTE | 2016-11-02 00:30 | NUR ---
PT SLEEPING WELL NOT DISTRESS NOTED ON TELEMETRY SR
[2016-11-02] MEDS: ALBUTEROL SULFATE/IPRATROPIU 3 ML SOL IH SCH ×4 (01:09→19:00)
[2016-11-02 04:00] VITALS: BP 150/96
--- NOTE | 2016-11-02 04:00 | NUR ---
SPONGE BATH GIVEN LINEN CHANGED ON TELEMETRY SR REPOSITIONED Q2HK AND PT VOIDING WELL ON URINAL
[2016-11-02] MEDS: LORazepam 1 MG TAB PO SCH ×3 (05:25→20:29)
[2016-11-02] MEDS: PANTOPRAZOLE 40 MG TABEC PO SCH (06:11)
[2016-11-02] MEDS: BLOOD GLUCOSE MONITORING 1 DEV DEV FS SCH ×4 (06:54→20:33)
--- NOTE | 2016-11-02 06:59 | NUR ---
PT RESTING ON BED NOT DISTRESS NOTED BLOOD SUGAR TEST 123 NOT COVERAGE PT WILL BE ENDORSED TO DAY SHIFT NURSE FOR CONTINUITY OF CARE
--- NOTE | 2016-11-02 07:05 | NUR ---
RECEIVED PATIENT REPORT AT BEDSIDE FROM NIGHT NURSE. PATIENT SHOWS NO S/S OF DISTRESS ON ROOM AIR. ON TELE MONITOR. PATIENT IS AAOX4 AND DENIES PAIN. SKIN INTACT. NOTED IV SITE ON THE R AC SL AND R W WITH IVF'S INFUSING WELL. PATIENT STATES LBM WAS 11/01/16. PATIENT HAS URINAL AT BEDSIDE WITH 600CC'S OF LIGHT ANIBAL URINE. PATIENT WAS EXPLAINED POC FOR TODAY. PATIENT VERBALIZES UNDERSTANDING. PATIENT WAS EDUCATED ON HOW TO USE THE CALL LIGHT FOR ASSISTANCE. THE BED IS LOWERED WITH CALL LIGHT WITHIN REACH. WILL CONTINUE TO MONITOR.
[2016-11-02 07:35] LABS: BASOPHILS # (AUTO) 0.2 K/uL (0.00-0.22); BASOPHILS % (AUTO) 2.8 % (0.0-2.0); EOSINOPHILS # (AUTO) 0.2 K/uL (0-0.4); EOSINOPHILS % (AUTO) 2.6 % (0.0-4.0); HEMOGLOBIN 13.4 g/dL (12.0-18.0); LYMPHOCYTES # (AUTO) 1.3 K/uL (2.0-11.5); LYMPHOCYTES % (AUTO) 19.8 % (20.5-51.1); MEAN CORPUSCULAR HEMOGLOBIN 30 pg (27-31); MEAN CORPUSCULAR HGB CONC 33 g/dL (33-37); MEAN CORPUSCULAR VOLUME 90 fL (80-94); MONOCYTES # (AUTO) 0.5 K/uL (0.8-1.0); MONOCYTES % (AUTO) 8.1 % (1.7-9.3); NEUTROPHILS # (AUTO) 4.4 K/uL (1.8-7.7); NEUTROPHILS % (AUTO) 66.7 % (42.2-75.2); PLATELET COUNT (AUTO) 290 K/uL (140-450); RED BLOOD CELL COUNT(AUTO) 4.54 MIL/uL (4.20-6.10); RED CELL DISTRIBUTION WIDTH 14.9 % (11.6-13.7); WHITE BLOOD COUNT (AUTO) 6.6 K/uL (4.8-10.8)
[2016-11-02 07:44] LABS: ANION GAP 7.9 (8-16); CALCIUM 8.4 mg/dL (8.5-10.1); CARBON DIOXIDE 31.2 mmol/L (21-32); CREATININE 1.3 mg/dL (0.7-1.3); POTASSIUM 4.1 mmol/L (3.5-5.1)
[2016-11-02 08:00] VITALS: BP 156/97
[2016-11-02] MEDS: SPIRONOLACTONE 25 MG TAB PO SCH ×2 (09:19→17:33)
[2016-11-02] MEDS: LISINOPRIL 20 MG TAB PO SCH (09:19)
[2016-11-02] MEDS: metFORMIN 500 MG TAB PO SCH ×2 (09:19→17:33)
[2016-11-02] MEDS: CARVEDILOL 6.25 MG TAB PO SCH ×2 (09:20→20:29)
[2016-11-02] MEDS: amLODIPine 5 MG TAB PO SCH (09:20)
[2016-11-02] MEDS: ASPIRIN 81 MG TAB.CHEW PO SCH (09:21)
[2016-11-02] MEDS: THIAMINE 100 MG TAB PO SCH (09:21)
[2016-11-02] MEDS: FOLIC ACID 1 MG TAB PO SCH (09:21)
[2016-11-02] MEDS: DOCUSATE SODIUM 100 MG GELCAP PO SCH ×2 (09:21→20:28)
[2016-11-02] MEDS: MULTIVITAMIN 1 TAB PO SCH (09:21)
[2016-11-02] MEDS: LACTOBACILLUS RHAMNOSUS GG 1 EACH CAP PO SCH (09:21)
--- NOTE | 2016-11-02 09:21 | NUR ---
ADMINISTERED SCHEDULED MEDICATIONS. PATIENT WAS EDUCATED ON SIDE EFFECTS OF MEDICATIONS AND TO ASK FOR ASSISTANCE BY USING THE CALL LIGHT IF NEEDS TO USE THE RESTROOM. PATIENT VERBALIZED UNDERSTANDING. THE BED IS LOWERED WITH CALL LIGHT WITHIN REACH.
[2016-11-02] MEDS: POTASSIUM CHLORIDE 20% 40 MEQ/15 ML UDC PO SCH (09:22)
[2016-11-02] MEDS: FUROSEMIDE 40 MG/4 ML VIAL IVP SCH ×2 (09:22→17:33)
[2016-11-02 11:46] VITALS: BP 147/98
--- NOTE | 2016-11-02 12:00 | NUR ---
ADMINISTERED SCHEDULED MEDICATIONS. PATIENT DENIES PAIN AND SHOWS NO S/S OF DISTRESS ON RA. BED IS LOWERED WITH CALL LIGHT WITHIN REACH.
[2016-11-02] MEDS: INSULIN LISPRO SLIDING SCALE 100 UNITS/ML VIAL SUBQ PRN (12:06)
[2016-11-02] MEDS: NACL 0.9% 1,000 ML IV SCH (13:51)
[2016-11-02 16:00] VITALS: BP 141/90
--- NOTE | 2016-11-02 16:00 | NUR ---
ASSISTED PATIENT TO RESTROOM. PATIENT AMB WITH STEADY GAIT. PATIENT VOIDED URINE WITH SMALL AMOUNTS OF BLOOD. PATIENT HAD LOAIZA CATHETER DISCONTINUED LAST NIGHT. WILL CONTINUE TO ASSESS IF PATIENT HAS CONTINUOUS BLOOD IN URINE. PATIENT DENIES PAIN. HE IS NOW IN BED AND SHOWS NO S/S OF DISTRESS ON ROOM AIR.
--- NOTE | 2016-11-02 17:30 | NUR ---
ADMINISTERED SCHEDULED MEDICATIONS. PATIENT DENIES PAIN AND SHOWS NO S/S OF DISTRESS ON ROOM AIR. THE BED IS LOWERED WITH CALL LIGHT WITHIN REACH.
--- NOTE | 2016-11-02 19:22 | NUR ---
PT REFUSED HHNTX. PT FEELS HE DOES NOT NEED THEM ANYMORE. BS ARE CLEAR. SATS 100% ON ROOM AIR. PT WILL CALL IF HE NEEDS HHNTX.
--- NOTE | 2016-11-02 19:30 | NUR ---
RECEIVED PT IN STABLE CONDITION FROM AM NURSE. AWAKE,ALERT AND ORIENTED X4. ON TELE MONITOR. NO C/O ANY DISCOMFORT NOR PAIN NOTED. WITH IVF ACCESS ON THE RT WRIST #18, CLEAR AND PATENT. RT AC #20 ,HL. NO SOB NOTED. PLAN OF CARE DISCUSSED AND VERBALIZED UNDERSTANDING. CALL LIGHT AND URINALS WITHIN REACH. INSTRUCTED TO CALL FOR ANY ASSISTANCE NEEDED. WILL CONTINUE TO MONITOR.
[2016-11-02 20:00] VITALS: BP 142/99
[2016-11-02] MEDS: ATORVASTATIN 20 MG TAB PO SCH (20:30)
--- NOTE | 2016-11-02 20:33 | NUR ---
BLOOD SUGAR WAS CHECKED RESULT 116. NO INSULIN COVERAGE NEEDE. PROVIDED WITH SOME SNACKS. WILL CONTINUE TO MONITOR.
--- NOTE | 2016-11-02 22:30 | NUR ---
MADE ROUNDS. ASLEEP. NO S/S OF ANY DISCOMFORT OR DISTRESS NOTED. WILL CONTINUE TO MONITOR.
[2016-11-03 00:25] VITALS: BP 129/75
[2016-11-03] MEDS: CLINDAMYCIN 300 MG in DEXTROSE 5% 50 ML IV SCH ×3 (00:26→11:28)
[2016-11-03] MEDS: ALBUTEROL SULFATE/IPRATROPIU 3 ML SOL IH SCH ×2 (01:00→07:15)
--- NOTE | 2016-11-03 02:00 | NUR ---
MADE ROUNDS PT IS ASLEEP. NO S/S OF ANY DISCOMFORT NOTED. WILL CONTINUE TO MONITOR.
--- NOTE | 2016-11-03 04:00 | NUR ---
SLEPT WELL DURING THE NIGHT. NO DISTRESS NOTED.
[2016-11-03 04:25] VITALS: BP 149/89
[2016-11-03 05:35] LABS: BASOPHILS # (AUTO) 0.3 K/uL (0.00-0.22); BASOPHILS % (AUTO) 4.1 % (0.0-2.0); EOSINOPHILS # (AUTO) 0.2 K/uL (0-0.4); EOSINOPHILS % (AUTO) 3.8 % (0.0-4.0); HEMATOCRIT 42.7 % (36-52); HEMOGLOBIN 13.8 g/dL (12.0-18.0); LYMPHOCYTES % (AUTO) 16.6 % (20.5-51.1); MEAN CORPUSCULAR HEMOGLOBIN 29 pg (27-31); MEAN CORPUSCULAR HGB CONC 33 g/dL (33-37); MEAN CORPUSCULAR VOLUME 90 fL (80-94); MONOCYTES # (AUTO) 0.3 K/uL (0.8-1.0); MONOCYTES % (AUTO) 4.1 % (1.7-9.3); NEUTROPHILS # (AUTO) 4.4 K/uL (1.8-7.7); NEUTROPHILS % (AUTO) 71.4 % (42.2-75.2); PLATELET COUNT (AUTO) 330 K/uL (140-450); RED BLOOD CELL COUNT(AUTO) 4.75 MIL/uL (4.20-6.10); RED CELL DISTRIBUTION WIDTH 14.9 % (11.6-13.7)
[2016-11-03] MEDS: LORazepam 1 MG TAB PO SCH (05:47)
[2016-11-03] MEDS: PANTOPRAZOLE 40 MG TABEC PO SCH (05:47)
[2016-11-03 05:56] LABS: ANION GAP 10.5 (8-16); CALCIUM 8.7 mg/dL (8.5-10.1); CARBON DIOXIDE 30.8 mmol/L (21-32); CREATININE 1.4 mg/dL (0.7-1.3); POTASSIUM 4.3 mmol/L (3.5-5.1)
[2016-11-03] MEDS: BLOOD GLUCOSE MONITORING 1 DEV DEV FS SCH ×2 (06:13→11:42)
--- NOTE | 2016-11-03 06:13 | NUR ---
BLOOD SUGAR WAS CHECKED RESULT 124. NO INSULIN NEEDED.
[2016-11-03 06:54] LABS: WHITE BLOOD COUNT (AUTO) 6.2 K/uL (4.8-10.8)
--- NOTE | 2016-11-03 07:10 | NUR ---
RECEIVED PATIENT REPORT AT BEDSIDE FROM NIGHT NURSE. PATIENT SHOWS NO S/S OF ACUTE DISTRESS AND IS CURRENTLY RECEIVING A BREATHING TX. ON TELE MONITOR. PATIENT IS AAOX4 AND DENIES PAIN. SKIN INTACT. NOTED IV SITE ON THE R W WITH IVF'S INFUSING WELL. PATIENT STATES LBM WAS 11/01/16. PATIENT WAS EXPLAINED POC FOR TODAY. PATIENT VERBALIZES UNDERSTANDING. PATIENT WAS EDUCATED ON HOW TO USE THE CALL LIGHT FOR ASSISTANCE. THE BED IS LOWERED WITH CALL LIGHT WITHIN REACH. WILL CONTINUE TO MONITOR.
--- NOTE | 2016-11-03 07:25 | NUR ---
ENDORSED PT IN STABLE CONDITION TO AM NURSE.
[2016-11-03 07:50] VITALS: BP 159/102
[2016-11-03] MEDS: metFORMIN 500 MG TAB PO SCH (08:26)
[2016-11-03] MEDS: LACTOBACILLUS RHAMNOSUS GG 1 EACH CAP PO SCH (08:27)
[2016-11-03] MEDS: THIAMINE 100 MG TAB PO SCH (08:27)
[2016-11-03] MEDS: LISINOPRIL 20 MG TAB PO SCH (08:27)
[2016-11-03] MEDS: DOCUSATE SODIUM 100 MG GELCAP PO SCH (08:27)
[2016-11-03] MEDS: MULTIVITAMIN 1 TAB PO SCH (08:27)
[2016-11-03] MEDS: SPIRONOLACTONE 25 MG TAB PO SCH (08:27)
[2016-11-03] MEDS: ASPIRIN 81 MG TAB.CHEW PO SCH (08:28)
[2016-11-03] MEDS: POTASSIUM CHLORIDE 20% 40 MEQ/15 ML UDC PO SCH (08:28)
[2016-11-03] MEDS: CARVEDILOL 6.25 MG TAB PO SCH (08:28)
[2016-11-03] MEDS: amLODIPine 5 MG TAB PO SCH (08:28)
[2016-11-03] MEDS: FOLIC ACID 1 MG TAB PO SCH (08:28)
[2016-11-03] MEDS: FUROSEMIDE 40 MG/4 ML VIAL IVP SCH (08:29)
--- NOTE | 2016-11-03 08:30 | NUR ---
REASSESSED PATIENT BP SITTING UP AT 139/100 HR 85. ADMINISTERED SCHEDULED MEDICATIONS. PATIENT TOLERATED ACTIVITY WELL. PATIENT DENIES PAIN. THE BED IS LOWERED WITH CALL LIGHT WITHIN REACH.
--- NOTE | 2016-11-03 09:59 | NUR ---
PATIENT IS IN BED RESTING AND SHOWS NO S/S OF DISTRESS ON ROOM AIR. THE BED IS LOWERED WITH CALL LIGHT WITHIN REACH.
[2016-11-03] MEDS ORDERED: METF500T4 PO (10:04)
[2016-11-03] MEDS ORDERED: LAS20I PO (10:04)
[2016-11-03] MEDS ORDERED: ASPI81CT27 PO (10:04)
[2016-11-03] MEDS ORDERED: ATOR20TA40 PO (10:04)
[2016-11-03] MEDS ORDERED: LISI-420 PO (10:04)
[2016-11-03] MEDS ORDERED: CARV6.252 PO (10:04)
[2016-11-03] MEDS ORDERED: AMLO5TAB4 PO (10:04)
[2016-11-03] MEDS ORDERED: SPIR25TA PO (10:14)
--- NOTE | 2016-11-03 11:30 | NUR ---
PATIENT AMB TO RESTROOM WITH STEADY GAIT. PATIENT DENIES PAIN AND SOB. PATIENT IS NOW IN BED AND SHOWS NO S/S OF DISTRESS ON ROOM AIR.
[2016-11-03 12:00] VITALS: BP 142/85
[2016-11-03] MEDS: INSULIN LISPRO SLIDING SCALE 100 UNITS/ML VIAL SUBQ PRN (12:10)
--- NOTE | 2016-11-03 12:40 | NUR ---
PT HAS BEEN DISCHARGED. ALL PAPERWORK SIGNED. ALL QUESTIONS ANSWERED. PATIENT VERBALIZED UNDERSTANDING. ALL BELONGINGS AND PRESCRIPTIONS IN PATIENT POSSESSION. IV DISCONTINUED WITH CANNULA INTACT. WRISTBANDS AND TELE MONITOR REMOVED. OFFERED PATIENT WHEELCHAIR. PATIENT LEFT UNIT IN STABLE CONDITION.
[2016-11-07] MEDS ORDERED: ASPI81CT27 PO (12:31)
== END 2016-11-03 12:40 | disposition home or self-care (01) | DRG 194 ==
LOC: MED 12:40 → MIC 14:06 → MTU 11-01 18:04
PROVIDERS: ADMIT Family Medicine; ATTEND Family Medicine
DX: I11.0 Hypertensive heart disease with heart failure (principal); N17.0 Acute kidney failure with tubular necrosis; E43 Unspecified severe protein-calorie malnutrition; L03.115 Cellulitis of right lower limb; E11.65 Type 2 diabetes mellitus with hyperglycemia; E83.42 Hypomagnesemia; L03.116 Cellulitis of left lower limb; I50.43 Acute on chronic combined systolic (congestive) and diastolic (congestive) heart failure; I42.9 Cardiomyopathy, unspecified; I08.1 Rheumatic disorders of both mitral and tricuspid valves; R31.9 Hematuria, unspecified; F41.1 Generalized anxiety disorder; I16.0 Hypertensive urgency; F10.10 Alcohol abuse, uncomplicated; R80.9 Proteinuria, unspecified; E87.6 Hypokalemia; Z87.891 Personal history of nicotine dependence; Z68.23 Body mass index [BMI] 23.0-23.9, adult; Z80.1 Family history of malignant neoplasm of trachea, bronchus and lung; Z91.19 Patient's noncompliance with other medical treatment and regimen; Z79.899 Other long term (current) drug therapy; Z87.820 Personal history of traumatic brain injury; Z79.84 Long term (current) use of oral hypoglycemic drugs
CPT/HCPCS: 36415; 51702; 71010; 71250; 80048; 80053; 80305; 81001; 82140; 82150; 82948; 83036; 83605; 83690; 83735; 83880; 84100; 84439; 84443; 84484; 85025; 85610; 87040; 87081; 87086; 90732; 93005; 93925; 93970; 93976; 94640; 96365; 96366; 96375; 99291; G0482; J0360; J1644; J1815; J1940; J1956; J2001; J3475; J3480; J3490; J7030; J7060; J7620; Q0092

== ENCOUNTER 2016-11-03 14:20 | Inpatient (IN) | payer MEDICAID ==
[~2016-11-03] VITALS: Ht 170.2 cm; Wt 67.6 kg
[~2016-11-03 14:20] MED LIST: AMLO5TAB4 PO; ASPI81CT95 PO; ATOR20TA40 PO; CARV6.252 PO; LAS20I PO; LISI-420 PO; METF500T4 PO; SPIR25TA PO
--- NOTE | 2016-11-03 14:26 | NUR ---
Patient BIBA to bed 6 at this time.
[2016-11-03 14:29] VITALS: BP 116/77
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
--- NOTE | 2016-11-03 14:40 | NUR ---
PT KEEP ON LOOKING FOR HIS CELLPHONE; LOOKED AT BEDSIDE FOR THE CELLPHONE BUT CANNOT LOCATE IT;ASKED EMS THAT BROUGHT HIM HERE IN ER THEY SAID THEY DON'T HAVE ITTHEY ONLY GOT HIS FUNCTIONAL ARCHITECT;INFORMED THE PT.THAT EMS DON'T HAVE JIS CELLPHONE BUT PT KEEPS ON LOOKING FOR IT;
--- NOTE | 2016-11-03 14:45 | NUR ---
DR TUCKER AT BEDSIDE.
--- NOTE | 2016-11-03 14:50 | NUR ---
BLAYNE PEMBERTON AT BEDSIDE.
--- NOTE | 2016-11-03 15:00 | NUR ---
WENT TO CT SCAN ACCOMPANIED BY TECH.
[2016-11-03 15:09] LABS: BASOPHILS # (AUTO) 0.2 K/uL (0.00-0.22); BASOPHILS % (AUTO) 2.3 % (0.0-2.0); EOSINOPHILS # (AUTO) 0.2 K/uL (0-0.4); EOSINOPHILS % (AUTO) 2.6 % (0.0-4.0); HEMATOCRIT 46.5 % (36-52); HEMOGLOBIN 14.7 g/dL (12.0-18.0); LYMPHOCYTES # (AUTO) 1.1 K/uL (2.0-11.5); LYMPHOCYTES % (AUTO) 14.1 % (20.5-51.1); MEAN CORPUSCULAR HEMOGLOBIN 29 pg (27-31); MEAN CORPUSCULAR HGB CONC 32 g/dL (33-37); MEAN CORPUSCULAR VOLUME 90 fL (80-94); MONOCYTES # (AUTO) 0.4 K/uL (0.8-1.0); MONOCYTES % (AUTO) 5.6 % (1.7-9.3); NEUTROPHILS % (AUTO) 75.4 % (42.2-75.2); PLATELET COUNT (AUTO) 395 K/uL (140-450); RED BLOOD CELL COUNT(AUTO) 5.18 MIL/uL (4.20-6.10); RED CELL DISTRIBUTION WIDTH 15.2 % (11.6-13.7); WHITE BLOOD COUNT (AUTO) 7.9 K/uL (4.8-10.8)
--- NOTE | 2016-11-03 15:14 | NUR ---
BACK FROM CT SCAN;RAQUEL CUTE DISTRESS NOTED;WILL CONTIUE TO MONITOR PT.
[2016-11-03 15:20] LABS: APPEARANCE,URINE CLEAR (CLEAR); BILIRUBIN,URINE NEGATIVE (NEGATIVE); BLOOD, URINE 3+ (NEGATIVE); COLOR,URINE YELLOW (YELLOW); LEUKOCYTE ESTERASE ,URINE NEGATIVE (NEGATIVE); NITRITE, URINE NEGATIVE (NEGATIVE); PH,URINE 6.5 (5.0-9.0); UGLUCOSE NEGATIVE (NEGATIVE)
[2016-11-03 15:23] LABS: ANION GAP 12.4 (8-16); CARBON DIOXIDE 28.5 mmol/L (21-32); CHLORIDE 101 mmol/L (98-107); CREATININE 1.6 mg/dL (0.7-1.3); GFR ARICAN-AMERICAN 57 mL/min (>90); GLUCOSE 98 mg/dL (74-106); POTASSIUM 4.9 mmol/L (3.5-5.1); SODIUM SERUM 137 mmol/L (136-145); UREA NITROGEN, BLOOD 18 mg/dL (7-18)
[2016-11-03 15:31] LABS: ALBUMIN 2.6 g/dL (3.4-5.0); ASPARTATE AMINOTRANSFERASE 40 U/L (15-37); TOTAL BILIRUBIN 0.8 mg/dL (0.0-1.0)
--- NOTE | 2016-11-03 15:31 | NUR ---
PT STILL LOOKING FOR HIS CELLPHONE;EXPALINED TO PT THAT WE DIDN'T FIND THE CELLPHONE AND HE MIGHT LEFT IT IN THEIR HOUSE OR CAR.
[2016-11-03 15:32] LABS: ACETAMINOPHEN < 0.5 ug/ml (10-30); SALICYLATE < 2.8 mg/dL (2.8-20.0)
[2016-11-03 15:36] LABS: BARBITURATE, URINE NEG. ng/ml (NEG <=200); BENZODIAZEPINE, URINE NEG. ng/mL (NEG <=200); CANNABINOID, URINE NEG. ng/mL (NEG <=50); COCAINE, URINE NEG. ng/mL (NEG <=300); OPIATE, URINE NEG. ng/mL (NEG <=2000); PHENCYCLIDINE SCREEN,URINE NEG. ng/mL (NEG <=25); RBC,URINE >100 /HPF (0-5)
[2016-11-03 15:37] LABS: WBC,URINE NONE SEEN /HPF (0-5)
--- NOTE | 2016-11-03 15:53 | NUR ---
CALLED GUERO KUO;INFORMED THAT HIS FATHER IS FOR DISCHARGED AND NO ONE CAN PICK HIM UP;MR KUO LIVES IN [place] AND [facility] WILL CALL BACK.
--- NOTE | 2016-11-03 16:09 | NUR ---
MR GUERO KUO;CALLED BACK TALKED TO HIS FATHER AND DR TUCKER.
[2016-11-03] MEDS ORDERED: NACL 0.9% 1,000 ML IV SCH (16:11)
--- NOTE | 2016-11-03 16:35 | NUR ---
XRAY AT BEDSIDE.
[2016-11-03 16:40] LABS: PROTHROMBIN TIME 10.1 secs (10.8-13.4)
--- NOTE | 2016-11-03 17:16 | NUR ---
PT RESTING ON BED;NO ACUTE DISTRESS NOTED;WILL CONTINUE TO MONITOR PT.
--- NOTE | 2016-11-03 17:36 | NUR ---
PT AMBULATED TO THE RESTROOM.
[2016-11-03] MEDS ORDERED: ONDANSETRON 4 MG/2 ML VIAL IVP PRN (18:15)
[2016-11-03] MEDS ORDERED: ACETAMINOPHEN 325 MG TAB PO PRN (18:15)
[2016-11-03] MEDS ORDERED: LORazepam 2 MG/ML VIAL IVP PRN (18:15)
[2016-11-03] MEDS ORDERED: DEXTROSE 50% 50 ML SYR IVP PRN (18:15)
--- NOTE | 2016-11-03 18:16 | NUR ---
Patient will be admitted to care of [facility] . Admited to tele. Will go to room 121. Belongings list completed. Report to Stacey Britton.
[2016-11-03 18:30] VITALS: BP 139/79
--- NOTE | 2016-11-03 19:19 | NUR ---
BEDSIDE REPORT GIVEN TO MARY KC. IN STABLE CONDITION. ALSO ENDORSED THAT PT. ADMITTED AT 1825.
--- NOTE | 2016-11-03 19:20 | NUR ---
[facility]. PATIENT IS ALERT AND ORIENTED X3, DISCUSSED PLAN OF CARE WITH PATIENT, VERBALIZED UNDERSTANDING. SHIFT ASSESSMENT DONE, VITAL SIGNS TAKEN. NO S/SX OF RESPIRATORY DISTRESS NOTED ON ROOM AIR. PATIENT DENIES PAIN. IV PATENT AND INFUSING FLUIDS WELL. SKIN INTACT, WRISTBANDS APPLIED. SAFETY PRECAUTIONS ENFORCED, CALL LIGHT WITHIN REACH. WILL CONTINUE TO MONITOR.
[2016-11-03 20:00] VITALS: BP 148/96
[2016-11-03] MEDS: ATORVASTATIN 20 MG TAB PO SCH (20:52)
[2016-11-03] MEDS: CARVEDILOL 12.5 MG TAB PO SCH (20:53)
--- NOTE | 2016-11-03 20:53 | NUR ---
DUE MEDICATIONS ADMINISTERED, TOLERATED WELL. PATIENT BLOOD SUGAR 137, NO COVERAGE NEEDED AT THIS TIME. PT C/O DRY SKIN, PROVIDED WITH LOTION. CALL LIGHT PLACED WITHIN REACH. WILL CONTINUE TO MONITOR.
[2016-11-03] MEDS: BLOOD GLUCOSE MONITORING 1 DEV DEV FS SCH (20:55)
[2016-11-04] VITALS (8 sets, daily range): BP systolic 144–176; BP diastolic 84–107
--- NOTE | 2016-11-04 | NUR ---
VITAL SIGNS TAKEN, PROVIDED PATIENT WITH BLANKET. NO DISTRESS OR DISCOMFORT NOTED. WILL CONTINUE TO MONITOR.
[2016-11-04 00:19] LABS: CREATINE KINASE MB 1.3 ng/mL (0-3.6)
[2016-11-04] MEDS: DEXT 5% /NACL 0.9% 1,000 ML IV SCH ×2 (00:42→15:13)
--- NOTE | 2016-11-04 01:00 | NUR ---
PATIENT IS RESTING, CALM AND STABLE WITH NO SIGNS OF DISTRESS. BED IN LOW POSITION, CALL LIGHT WITHIN REACH. WILL CONTINUE TO MONITOR Addendum: 11/05/16 at 0521 by Dee Pitts RN WRONG DATE ON ORIGINAL NOTE. IT IS SUPPOSED TO BE 11/05/2016 0100.
--- NOTE | 2016-11-04 02:05 | NUR ---
PATIENT SLEEPING AT THIS TIME, NO S/S OF DISTRESS OR DISCOMFORT NOTED. CALL LIGHT IN REACH.
--- NOTE | 2016-11-04 04:15 | NUR ---
VITAL SIGNS STABLE, PATIENT RESTING IN BED, NO DISTRESS OR DISCOMFORT NOTED. CALL LIGHT WITHIN REACH.
[2016-11-04 05:53] LABS: BASOPHILS # (AUTO) 0.2 K/uL (0.00-0.22); BASOPHILS % (AUTO) 3.2 % (0.0-2.0); EOSINOPHILS # (AUTO) 0.2 K/uL (0-0.4); EOSINOPHILS % (AUTO) 3.9 % (0.0-4.0); HEMATOCRIT 42.4 % (36-52); HEMOGLOBIN 13.9 g/dL (12.0-18.0); LYMPHOCYTES % (AUTO) 17.8 % (20.5-51.1); MEAN CORPUSCULAR HEMOGLOBIN 30 pg (27-31); MEAN CORPUSCULAR HGB CONC 33 g/dL (33-37); MEAN CORPUSCULAR VOLUME 91 fL (80-94); MONOCYTES # (AUTO) 0.5 K/uL (0.8-1.0); MONOCYTES % (AUTO) 7.8 % (1.7-9.3); NEUTROPHILS # (AUTO) 3.9 K/uL (1.8-7.7); NEUTROPHILS % (AUTO) 67.3 % (42.2-75.2); PLATELET COUNT (AUTO) 332 K/uL (140-450); RED BLOOD CELL COUNT(AUTO) 4.69 MIL/uL (4.20-6.10); RED CELL DISTRIBUTION WIDTH 15.1 % (11.6-13.7); WHITE BLOOD COUNT (AUTO) 5.8 K/uL (4.8-10.8)
[2016-11-04] MEDS: BLOOD GLUCOSE MONITORING 1 DEV DEV FS SCH ×4 (06:05→20:47)
[2016-11-04 06:07] LABS: ANION GAP 11.8 (8-16); CARBON DIOXIDE 26.3 mmol/L (21-32); CREATININE 1.3 mg/dL (0.7-1.3); POTASSIUM 4.1 mmol/L (3.5-5.1)
[2016-11-04] MEDS: MORPHINE SULFATE 2 MG/ML SYR IVP PRN ×2 (06:08→11:04)
--- NOTE | 2016-11-04 06:08 | NUR ---
PATIENT C/O GENERAL BODY PAIN, MEDICATED PER MD ORDER, VITAL SIGNS STABLE. CALL LIGHT WITHIN REACH, WILL CONTINUE TO MONITOR.
[2016-11-04 06:11] LABS: MAGNESIUM 1.9 mg/dL (1.8-2.4); PHOSPHORUS 4.5 mg/dL (2.5-4.9)
--- NOTE | 2016-11-04 07:20 | NUR ---
ASSUMED CONTINUITY OF CARE. NO SIGNS AND SYMPTOMS OF ACUTE DISTRESS NOTED. INITIAL ASSESSMENT DONE. KEEP COMFORTABLE ON BED. EXPLAINED DIAGNOSIS, PLAN OF CARE, PAIN MANAGEMENT TEACHING, USE OF CALL LIGHT/BED/TV/BATHROOM. VERBALIZED UNDERSTANDING. CALL LIGHT WITHIN REACH.
--- NOTE | 2016-11-04 07:21 | NUR ---
ENDORSED PATIENT TO DAY RN FOR CONTINUITY OF CARE, PATIENT IS IN STABLE CONDITION.
--- NOTE | 2016-11-04 07:30 | NUR ---
Patient's Plan of Care was discussed and reviewed with TOY: TELLO
[2016-11-04] MEDS: metFORMIN 500 MG TAB PO SCH ×2 (08:38→17:00)
[2016-11-04] MEDS: LISINOPRIL 20 MG TAB PO SCH (08:39)
[2016-11-04] MEDS: SPIRONOLACTONE 25 MG TAB PO SCH ×2 (08:39→17:00)
[2016-11-04] MEDS: CARVEDILOL 12.5 MG TAB PO SCH ×2 (08:39→20:46)
[2016-11-04] MEDS: ASPIRIN 81 MG TAB.CHEW PO SCH (08:40)
[2016-11-04] MEDS: amLODIPine 5 MG TAB PO SCH (08:40)
--- NOTE | 2016-11-04 10:17 | NUR ---
CALLED DR. PARSON AND SPOKE TO NARESH REGARDING CONSULT. LEFT CALL BACK NUMBER.
--- NOTE | 2016-11-04 10:19 | NUR ---
CALLED DR. JUAN AND INFORMED OF PT. CONSULT THAT VU ANNE ORDERED. GAVE PT. INFORMATION TO DR. JUAN.
--- NOTE | 2016-11-04 10:20 | NUR ---
CALLED ZOË ANNE REGARDING PT. CONSULT THAT WAS ORDERED BY VU ANNE.
--- NOTE | 2016-11-04 10:24 | NUR ---
DR. EUBANKS CALLED BACK COVERING DR. PARSON, INFORMED OF PT. CONSULT THAT WAS ORDERED BY VU ANNE.
--- NOTE | 2016-11-04 11:15 | NUR ---
DR. EUBANKS CAME, SEEN PT. AND CHECKED PT. CHART.
[2016-11-04] MEDS: INSULIN LISPRO SLIDING SCALE 100 UNITS/ML VIAL SUBQ PRN ×2 (11:23→20:50)
--- NOTE | 2016-11-04 11:40 | NUR ---
VU ANNE CAME, CHECKED PT. CHART AND SEEN PT..
--- NOTE | 2016-11-04 16:27 | NUR ---
ZOË ANNE CAME, CHECKED PT. CHART, AND SEEN PT..
--- NOTE | 2016-11-04 17:00 | NUR ---
SCHEDULED MEDS NOT GIVEN DUE TO PT. NPO STATUS FOR US ABDOMEN.
--- NOTE | 2016-11-04 18:35 | NUR ---
MANAGER [employer] CAME FOR PT. US ABD.
--- NOTE | 2016-11-04 19:02 | NUR ---
US ABD WAS DONE AT THIS TIME. NO ACUTE DISTRESS NOTED. NO C/O NAUSEA. KEEP COMFORTABLE ON BED.
--- NOTE | 2016-11-04 19:12 | NUR ---
BEDSIDE REPORT GIVEN TO GLADYS JEFFERS -YUSRA. IVF INFUSING WELL. IN STABLE CONDITION.
[2016-11-04 19:26] LABS: CREATINE KINASE MB 1.6 ng/mL (0-3.6)
--- NOTE | 2016-11-04 19:30 | NUR ---
RECEIVED HANDOFF REPORT FROM DAY NURSE AT PATIENT'S BEDSIDE. PATIENT APPEARS TO BE CALM AND STABLE. FAMILY AT BEDSIDE. PATIENT IS AOX3. PATIENT'S SPEECH IS SLURRED. PATIENT IS ON ROOM AIR WITH NO SIGNS OF DISTRESS. SKIN INTACT, 20 GAUGE IV ON LEFT UPPER ARM INTACT/ASYMPTOMATIC. ABLE TO AMBULATE WITHOUT ASSISTANCE, STEADY GAIT. NO EDEMA PRESENT. DISCUSSED WITH PATIENT THE PLAN OF CARE, PT VERBALIZED UNDERSTANDING. BED IN LOW POSITION, CALL LIGHT WITHIN REACH. WILL CONTINUE TO MONITOR.
[2016-11-04] MEDS: ATORVASTATIN 20 MG TAB PO SCH (20:46)
--- NOTE | 2016-11-04 20:53 | NUR ---
PM MEDS GIVEN. PATIENT TOLERATED WELL. BED IN LOW POSITION, CALL LIGHT WITHIN REACH. WILL CONTINUE TO MONITOR.
--- NOTE | 2016-11-04 21:24 | NUR ---
PAGEFelton KUMAR MD. PATIENT ASKING FOR SLEEPING PILL. GAVE ORDERS FOR TRAZADONE 100MG PO QHS. WILL F/U WITH ORDERS.
[2016-11-04] MEDS: traZODone 50 MG TAB PO SCH (21:50)
--- NOTE | 2016-11-04 21:55 | NUR ---
SLEEP AID MEDICATION GIVEN PER MD ORDER. PATIENT TOLERATED WELL. PATIENT IS RESTING IN BED, NO SIGNS OF DISTRESS. BED IN LOW POSITION, CALL LIGHT WITHIN REACH. WILL CONTINUE TO MONITOR
--- NOTE | 2016-11-04 23:50 | NUR ---
PATIENT SETTLED INTO NEW ROOM, AMBULATING WELL WITHOUT ASSIST. PATIENT IS TIRED AND WANTS TO GO TO SLEEP, VITALS WERE TAKEN SO PATIENT CAN GO TO SLEEP SOON POSSIBLE. BED IN LOW POSITION, CALL LIGHT WITHIN REACH. WILL CONTINUE TO MONITOR
[2016-11-05] VITALS (12 sets, daily range): BP systolic 134–183; BP diastolic 81–112
--- NOTE | 2016-11-05 03:00 | NUR ---
PATIENT C/O OF 8/10 PAIN IN ANKLE AND REQUESTED PAIN MEDICATION. MORPHINE GIVEN PER MD ORDERS. PATIENT TOLERATED IT WELL. BED IN LOW POSITION, CALL LIGHT WITHIN REACH.
[2016-11-05] MEDS: MORPHINE SULFATE 2 MG/ML SYR IVP PRN ×4 (03:09→20:32)
--- NOTE | 2016-11-05 05:00 | NUR ---
PATIENT IS RESTING, ANOTHER BLANKET WAS GIVEN PER PATIENT REQUEST. PATIENT IS STABLE AND NO SIGNS OF DISTRESS ARE NOTED. BED IN LOW POSITION, CALL LIGHT WITHIN REACH. WILL CONTINUE TO MONITOR
[2016-11-05 06:16] LABS: BASOPHILS # (AUTO) 0.2 K/uL (0.00-0.22); BASOPHILS % (AUTO) 3.4 % (0.0-2.0); EOSINOPHILS # (AUTO) 0.3 K/uL (0-0.4); EOSINOPHILS % (AUTO) 5.6 % (0.0-4.0); HEMATOCRIT 41.2 % (36-52); HEMOGLOBIN 13.2 g/dL (12.0-18.0); LYMPHOCYTES # (AUTO) 1.2 K/uL (2.0-11.5); LYMPHOCYTES % (AUTO) 21.9 % (20.5-51.1); MEAN CORPUSCULAR HEMOGLOBIN 29 pg (27-31); MEAN CORPUSCULAR HGB CONC 32 g/dL (33-37); MEAN CORPUSCULAR VOLUME 90 fL (80-94); MONOCYTES # (AUTO) 0.6 K/uL (0.8-1.0); MONOCYTES % (AUTO) 10.4 % (1.7-9.3); NEUTROPHILS # (AUTO) 3.2 K/uL (1.8-7.7); NEUTROPHILS % (AUTO) 58.7 % (42.2-75.2); PLATELET COUNT (AUTO) 332 K/uL (140-450); RED BLOOD CELL COUNT(AUTO) 4.57 MIL/uL (4.20-6.10); RED CELL DISTRIBUTION WIDTH 14.8 % (11.6-13.7); WHITE BLOOD COUNT (AUTO) 5.5 K/uL (4.8-10.8)
[2016-11-05 06:41] LABS: ANION GAP 10.3 (8-16); CARBON DIOXIDE 26.7 mmol/L (21-32); CREATININE 1.1 mg/dL (0.7-1.3)
[2016-11-05 06:47] LABS: MAGNESIUM 1.8 mg/dL (1.8-2.4); PHOSPHORUS 3.9 mg/dL (2.5-4.9)
--- NOTE | 2016-11-05 07:15 | NUR ---
PATIENT HAS BEEN SCREENED AND CATEGORIZED MODERATE NUTRITION RISK. PATIENT WILL BE SEEN WITHIN 3-5 DAYS OF ADMISSION. 11/05/16-11/07/16 MARGARETTE CORTEZ MS, RDN
--- NOTE | 2016-11-05 07:30 | NUR ---
RECEIVED PT IN BED. AWAKE. ALERT ORIENTEDX4. NO SOB NOTED. DENIES ANY PAIN OR DISCOMFORT AT THIS TIME. POSITIVE BOWEL SOUNDS NOTED ON FOUR QUADRANTS. PT AMBULATORY.SAFETY PRECAUTION IN PLACE. CALL LIGHT WITHIN REACH.
[2016-11-05] MEDS: BLOOD GLUCOSE MONITORING 1 DEV DEV FS SCH ×4 (07:33→20:36)
--- NOTE | 2016-11-05 07:36 | NUR ---
ENDORSED PATIENT TO DAY RN AT BEDSIDE, PATIENT IN STABLE CONDITION
[2016-11-05] MEDS: LISINOPRIL 20 MG TAB PO SCH (08:07)
[2016-11-05] MEDS: CARVEDILOL 12.5 MG TAB PO SCH ×2 (08:08→21:50)
[2016-11-05] MEDS: metFORMIN 500 MG TAB PO SCH ×2 (08:08→17:37)
[2016-11-05] MEDS: SPIRONOLACTONE 25 MG TAB PO SCH ×2 (08:08→17:37)
[2016-11-05] MEDS: ASPIRIN 81 MG TAB.CHEW PO SCH (08:09)
[2016-11-05] MEDS: amLODIPine 5 MG TAB PO SCH (08:09)
[2016-11-05] MEDS: DEXT 5% /NACL 0.9% 1,000 ML IV SCH (11:04)
--- NOTE | 2016-11-05 11:22 | NUR ---
DR. LANDEROS CAME TO SEE PT. MADE AWARE OF ORTHOSTATIC BP RESULTS. WITH NEW ORDER TO MAY DISCONTINUE MONITORING ORTHOSTATIC BP. AND CARRIED OUT
[2016-11-05] MEDS: INSULIN LISPRO SLIDING SCALE 100 UNITS/ML VIAL SUBQ PRN (12:21)
--- NOTE | 2016-11-05 14:40 | NUR ---
CALLED DR. JUAN [phone], TO FOLLOW UP WITH NEURO CONSULT. HE SAID THAT HE WILL COME AND SEE PT.
--- NOTE | 2016-11-05 15:00 | NUR ---
KVNG SON CALLED REGARDING UPDATE OF FATHER. MADE AWARE THAT WE ARE STILL WAITING FOR NEURO CONSULT.
--- NOTE | 2016-11-05 16:16 | NUR ---
CALLED DR. EUBANKS REGARDING ORDER BY DR. TIGRE CAMP OF CT ABDOMEN WITH CONTRAST IF OK WITH DR. EUBANKS. DR EUBANKS ORDERED 1/2 NS AT 50 CC/HR IVF, AND CARRIED OUT. Addendum: 11/05/16 at 1933 by Mehnaz Welch RN CALLED DR. EUBANKS REGARDING ORDER BY DR. TIGRE CAMP OF CT ABDOMEN WITH CONTRAST IF OK WITH DR. EUBANKS. DR EUBANKS AGREED WITH PROCEDURE AND ORDERED 1/2 NS AT 50 CC/HR IVF, AND CARRIED OUT.
[2016-11-05] MEDS ORDERED: NACL 0.45% 1,000 ML IV SCH (16:20)
--- NOTE | 2016-11-05 17:00 | NUR ---
DR. LANDEROS CAME TO SEE PT. MADE ORDER FOR CT SCAN ABDOMEN WITH CONTRAST. EXPLAINED TO PT RISKS AND BENEFITS. PT VERBALIZED UNDERSTANDING. SIGNED INFORMED CONSENT FOR PROCEDURE.
--- NOTE | 2016-11-05 17:41 | NUR ---
CALLED DR. ZOË LANDEROS [phone] MADE AWARE THAT DR. EUBANKS IS OK WITH CT SCAN ABDOMEN WITH CONTRAST. WITH ORDERS MADE AND CARRIED OUT.
--- NOTE | 2016-11-05 17:51 | NUR ---
CALLED RADIOLOGY DEPT SPOKE WITH MARYJO REGARDING CT SCAN ABDOMEN WITH CONTRAST MADE AWARE THAT PT WOULD WANT TO EAT HIS DINNER FIRST BEFORE PROCEDURE. AND PT IS TAKING METFORMIN. MADE AWARE THAT PT WILL BE ON NPO FOR 2 HRS AFTER DINNER AND WILL BE READY FOR PROCEDURE AT 9PM. ACCORDING TO MARYJO WILL NEED TO HOLD METFORMIN 48HRS AFTER PROCEDURE, WILL ENDORSE TO NEXT SHIFT.
--- NOTE | 2016-11-05 19:30 | NUR ---
RECEIVED HANDOFF REPORT FROM DAY NURSE AT PT BEDSIDE. PATIENT IS AOX4 IN STABLE CONDITION, ON ROOM AIR, WITH NO SIGNS OF DISTRESS. PT'S SKIN IS INTACT, NO SIGNS OF EDEMA PRESENT. 20 GAUGE IV ON LEFT UPPER ARM RUNNING 1/2 NS AT RATE OF 50ML/HR ASYMPTOMATIC/INTACT. PT AMBULATES WITHOUT ASSISTANCE AND HAS A STEADY GAIT. DISCUSSED PLAN OF CARE WITH PATIENT, AND PT VERBALIZED UNDERSTANDING. BED IN LOW POSITION, CALL LIGHT WITHIN REACH. WILL CONTINUE TO MONITOR PATIENT.
--- NOTE | 2016-11-05 19:31 | NUR ---
PT KEPT CLEAN, DRY, AND COMFORTABLE, NEEDS ATTENDED, ENDORSED TO NEXT SHIFT ON STABLE CONDITION FOR CONTINUITY OF CARE.
--- NOTE | 2016-11-05 20:39 | NUR ---
GAVE PT MORPHINE FOR PAIN. PATIENT TOLERATED IT WELL. WILL REASSESS PAIN IN 1 HOUR. BED IN LOW POSITION, CALL LIGHT WITHIN REACH. WILL CONTINUE TO MONITOR PT.
--- NOTE | 2016-11-05 20:53 | NUR ---
PT TO HAVE CT OF ABDOMEN, CONSENT IS SIGNED BY PATIENT BUT NOT BY MD. RADIOLOGY STATED THEY CANT TAKE THE PATIENT WITHOUT A SIGNATURE FROM AN MD. PAGED DR LANDEROS TO INFORM AND ASK IF HE WILL BE IN TONIGHT. WILL WAIT FOR CALL BACK.
--- NOTE | 2016-11-05 21:43 | NUR ---
SPOKE WITH DR TIGRE MD STATED HE WILL NO BE IN TONIGHT TO SIGN THE CONSENT FOR THE CT. STATED IT WAS OKAY TO HOLD THE TEST FOR TOMORROW.
--- NOTE | 2016-11-05 21:49 | NUR ---
CALLED RADIOLOGYMARYJO AWARE CT TEST WILL BE HELD PER MD UNTIL TOMORROW 11/06/16
[2016-11-05] MEDS: ATORVASTATIN 20 MG TAB PO SCH (21:50)
[2016-11-05] MEDS: traZODone 50 MG TAB PO SCH (21:51)
[2016-11-06] VITALS: BP 139/86
--- NOTE | 2016-11-06 | NUR ---
VITAL SIGNS STABLE, NO SOB OR SIGN OF DISTRESS AT THIS TIME, CALL LIGHT WITHIN REACH. WILL CONTINUE TO MONITOR.
--- NOTE | 2016-11-06 02:00 | NUR ---
PT SLEEPING, NO SOB OR SIGN OF DISTRESS, CALL LIGHT WITHIN REACH. WILL CONTINUE TO MONITOR.
[2016-11-06 04:00] VITALS: BP 153/95
--- NOTE | 2016-11-06 04:05 | NUR ---
VITAL SIGNS STABLE, NO SOB OR SIGN OF DISTRESS, CALL LIGHT WITHIN REACH. WILL CONTINUE TO MONITOR.
[2016-11-06 05:58] LABS: BASOPHILS # (AUTO) 0.2 K/uL (0.00-0.22); BASOPHILS % (AUTO) 3.6 % (0.0-2.0); EOSINOPHILS # (AUTO) 0.3 K/uL (0-0.4); EOSINOPHILS % (AUTO) 4.7 % (0.0-4.0); HEMATOCRIT 41.1 % (36-52); HEMOGLOBIN 13.4 g/dL (12.0-18.0); LYMPHOCYTES # (AUTO) 1.4 K/uL (2.0-11.5); LYMPHOCYTES % (AUTO) 24.4 % (20.5-51.1); MEAN CORPUSCULAR HEMOGLOBIN 29 pg (27-31); MEAN CORPUSCULAR HGB CONC 33 g/dL (33-37); MEAN CORPUSCULAR VOLUME 90 fL (80-94); MONOCYTES # (AUTO) 0.6 K/uL (0.8-1.0); MONOCYTES % (AUTO) 10.1 % (1.7-9.3); NEUTROPHILS # (AUTO) 3.2 K/uL (1.8-7.7); NEUTROPHILS % (AUTO) 57.2 % (42.2-75.2); PLATELET COUNT (AUTO) 319 K/uL (140-450); RED BLOOD CELL COUNT(AUTO) 4.57 MIL/uL (4.20-6.10); RED CELL DISTRIBUTION WIDTH 14.9 % (11.6-13.7); WHITE BLOOD COUNT (AUTO) 5.7 K/uL (4.8-10.8)
[2016-11-06 06:02] LABS: ANION GAP 12.1 (8-16); CREATININE 1.1 mg/dL (0.7-1.3); POTASSIUM 4.1 mmol/L (3.5-5.1)
[2016-11-06] MEDS: BLOOD GLUCOSE MONITORING 1 DEV DEV FS SCH ×4 (06:38→20:46)
--- NOTE | 2016-11-06 07:28 | NUR ---
ENDORSED PATIENT TO DAY RN AT BEDSIDE, PATIENT IN STABLE CONDITION
--- NOTE | 2016-11-06 07:30 | NUR ---
RECEIVED REPORT FROM PM RN. ASSUMED CARE OF THE PT. PT AWAKE, ALERT AND ORIENTED X4. BREATHING IS CLEAR AND UNLABORED, ON ROOM AIR. NO SIGNS OF RESTLESSNESS, SOB, AND DISTRESS. IV IS PATENT. SKIN IS INTACT. PT STATED A PAIN OF 8/10 ON LEFT LEG. WILL MEDICATE. SAFETY MEASURES IN PLACE. BED ON LOW POSITION. CALL LIGHT WITHIN REACH. WILL CONTINUE TO MONITOR.
[2016-11-06 08:00] VITALS: BP 169/106
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
[2016-11-06] MEDS: SPIRONOLACTONE 25 MG TAB PO SCH ×2 (08:10→17:15)
[2016-11-06] MEDS: metFORMIN 500 MG TAB PO SCH ×2 (08:10→17:00)
[2016-11-06] MEDS: LISINOPRIL 20 MG TAB PO SCH (08:11)
[2016-11-06] MEDS: ASPIRIN 81 MG TAB.CHEW PO SCH (08:11)
[2016-11-06] MEDS: CARVEDILOL 12.5 MG TAB PO SCH ×2 (08:12→20:53)
[2016-11-06] MEDS: amLODIPine 5 MG TAB PO SCH (08:12)
[2016-11-06] MEDS: HYDROcodone/APAP 5/325 MG 1 TAB TAB PO PRN ×2 (09:05→16:58)
--- NOTE | 2016-11-06 09:06 | NUR ---
GIVEN DUE MEDS AND PRN PAIN MEDS. PT TOLERATED IT WELL. NO SIGNS OF DISTRESS, SOB, OR RESTLESSNESS. SAFETY MEASURES IN PLACE. WILL CONTINUE TO MONITOR.
--- NOTE | 2016-11-06 10:17 | NUR ---
PT TRANSPORTED TO RADIOLOGY DEPT FOR CT SCAN.
--- NOTE | 2016-11-06 11:16 | NUR ---
PT IS BACK FROM CT SCAN.
--- NOTE | 2016-11-06 11:31 | NUR ---
SW AND PT'S FAMILY AT BEDSIDE ASKING QUESTIONS. WILL CONTINUE TO MONITOR.
[2016-11-06 12:00] VITALS: BP 171/111
[2016-11-06] MEDS: INSULIN LISPRO SLIDING SCALE 100 UNITS/ML VIAL SUBQ PRN (12:08)
--- NOTE | 2016-11-06 12:22 | NUR ---
DR QUEVEDO AND PT'S FAMILY AT BEDSIDE. PT'S FAMILY ASKING QUESTIONS. WILL CONTINUE TO MONITOR.
--- NOTE | 2016-11-06 12:38 | NUR ---
DR LANDEROS PAGED AND NOTIFIED OF CT RESULT, INCREASED BP 171/111, PRN ORDER FOR CLONIDINE 0.1MG PO Q6HR FOR SBP >[address]. [address] LANDEROS, PT TO STAY ANOTHER DAY UNTIL BP STABILIZES, PLAN OF CARE DISCUSSED WITH PT AND PT'S [id number], NO OTHER NEEDS VOICED, WILL CONTINUE TO MONITOR.
[2016-11-06] MEDS ORDERED: cloNIDine 0.1 MG TAB PO PRN (12:55)
--- NOTE | 2016-11-06 14:41 | NUR ---
PT SITTING COMFORTABLY, WATCHING TV. NO SIGNS OF SOB, RESTLESSNESS, OR DISTRESS. PT DENIES ANY PAIN OR DISCOMFORT. SAFETY MEASURES IN PLACED. CALL LIGHT WITHIN REACH. BED ON LOW POSITION. WILL CONTINUE TO MONITOR.
--- NOTE | 2016-11-06 15:52 | NUR ---
CLINICAL REVIEW DONE.
[2016-11-06 16:00] VITALS: BP 134/79
--- NOTE | 2016-11-06 16:01 | NUR ---
PT IN BED, AWAKE, ALERT AND ORIENTED. NO SIGNS OF DISTRESS, SOB, OR RESTLESSNESS. BREATHING IS CLEAR AND UNLABORED. PT C/O PAIN OF 6/10 ON HIS LEFT FOOT. WILL MEDICATE. SAFETY MEASURES IN PLACED. CALL LIGHT WITHIN REACH. BED IN LOW POSITION. WILL CONTINUE TO MONITOR.
--- NOTE | 2016-11-06 16:59 | NUR ---
PT C/O 6/10 LEFT FOOT PAIN. MEDICATED PT WITH NORCO. PT TOLERATED IT WELL. PT AMBULATED TO THE RESTROOM WITH SLOW STEADY GAIT. NO SIGNS OF DISTRESS, RESTLESSNESS, OR SOB. SAFETY MEASURES IN PLACED. WILL CONTINUE TO MONITOR.
--- NOTE | 2016-11-06 17:00 | NUR ---
[address] DUE TO [address] SCAN WITH CONTRAST THIS AM.
--- NOTE | 2016-11-06 18:00 | NUR ---
PT IN BED SITTING COMFORTABLY. PT DENIES PAIN OR DISCOMFORT. NO SIGNS OF SOB, DISTRESS, OR RESTLESSNESS. SAFETY MEASURE IN PLACED. WILL CONTINUE TO MONITOR.
--- NOTE | 2016-11-06 19:19 | NUR ---
REPORT GIVEN TO PM NURSE BOLIVAR PT IN STABLE CONDITION. Addendum: 11/06/16 at 193 by Grecia Butler RN REPORT GIVEN TO PM NURSE BAKER @ 1929
--- NOTE | 2016-11-06 19:30 | NUR ---
RECEIVED PT FROM ENEIDA RN PT IS AAOX4 AMBULATORY ON TELEMETRY SR INVERTED T, HL ON LEFT AC PATENT INITIAL ASSESSMENT DONE
[2016-11-06 20:00] VITALS: BP 140/86
[2016-11-06] MEDS: traZODone 50 MG TAB PO SCH (20:53)
[2016-11-06] MEDS: ATORVASTATIN 20 MG TAB PO SCH (20:54)
--- NOTE | 2016-11-06 21:54 | NUR ---
BLOOD SUGAR TEST 131 NOT COVERAGE
[2016-11-07] VITALS: BP 138/78
--- NOTE | 2016-11-07 | NUR ---
PT REMAIN STABLE AAOX4 AMBULATS TO THE RESTROOM ON TELEMETRY SR INVERTED T
[2016-11-07 04:00] VITALS: BP 156/96
--- NOTE | 2016-11-07 04:05 | NUR ---
SPONGE BATH GIVEN LINEN CHANGED ON TELEMETRY SR INVERTED T NOT DISTRESS NOTED
--- NOTE | 2016-11-07 06:13 | NUR ---
PT REMAIN STABLE NOT DISTRESS NOTED ON TELEMETRY SR INVERTED T WAVE
[2016-11-07] MEDS: BLOOD GLUCOSE MONITORING 1 DEV DEV FS SCH ×2 (06:26→11:41)
--- NOTE | 2016-11-07 07:30 | NUR ---
RECEIVED REPORT FROM PM RN FOR CONTINUITY OF CARE. PT AWAKE, ALERT AND ORIENTED X4. NO SIGNS OF RESTLESSNESS, SOB, AND DISTRESS. VITAL SIGNS ARE STABLE. SHIFT ASSESSMENT COMPLETED. SKIN IS INTACT. PT STATED A PAIN OF 8/10, WILL MEDICATE. PLAN OF CARE DISCUSSED WITH THE PT, PT VERBALIZED UNDERSTANDING. PT DENIES ANY OTHER DISCOMFORT. SAFETY MEASURES IN PLACE. BED ON LOW POSITION. CALL LIGHT WITHIN REACH. WILL CONTINUE TO MONITOR
[2016-11-07 08:00] VITALS: BP 171/109
[2016-11-07] MEDS: metFORMIN 500 MG TAB PO SCH (08:00)
--- NOTE | 2016-11-07 08:01 | NUR ---
[address] DUE TO CT SCAN WITH CONTRAST YESTERDAY.
--- NOTE | 2016-11-07 08:12 | NUR ---
PT STATED HE HAS A "BLOODY NOSE" BUT NO ACTIVE BLEEDING NOTED AT THIS TIME. WILL CONTINUE TO MONITOR.
[2016-11-07] MEDS: ASPIRIN 81 MG TAB.CHEW PO SCH (08:20)
[2016-11-07] MEDS: SPIRONOLACTONE 25 MG TAB PO SCH (08:20)
[2016-11-07] MEDS: CARVEDILOL 12.5 MG TAB PO SCH (08:21)
[2016-11-07] MEDS: LISINOPRIL 20 MG TAB PO SCH (08:22)
[2016-11-07] MEDS: HYDROcodone/APAP 5/325 MG 1 TAB TAB PO PRN (08:27)
[2016-11-07] MEDS ORDERED: amLODIPine 5 MG TAB PO SCH (09:00)
[2016-11-07 09:37] VITALS: BP 141/85
--- NOTE | 2016-11-07 10:31 | NUR ---
PT IS AWAKE WATCHING TV. NO SIGNS OF DISTRESS, SOB, OR RESTLESSNESS. PT DENIES ANY PAIN OR DISCOMFORT. VS STABLE. SAFETY MEASURES IN PLACED. CALL LIGHT WITHIN REACH. BED ON LOW POSITION. WILL CONTINUE TO MONITOR.
--- NOTE | 2016-11-07 11:00 | NUR ---
Comments11/07/16 RD INITIAL ASSESSMENT COMPLETED PLEASE REFER TO NUTRITION ASSESSMENT UNDER CARE ACTIVITY FOR ESTIMATED NUTRITIONAL NEEDS. 1. CONTINUE CARDIAC, 60 G CONSISTENT CARBOHYDRATE DIET 2. PROVIDE NUTRITION THERAPY EDUCATION NEEDED 3. RD TO FOLLOW-UP 3-5 DAYS, MODERATE RISK ALECIA LAL, ARACELI
[2016-11-07] MEDS: INSULIN LISPRO SLIDING SCALE 100 UNITS/ML VIAL SUBQ PRN (11:43)
[2016-11-07 12:06] VITALS: BP 132/84
[2016-11-07] MEDS ORDERED: AMLO5TAB4 PO (12:31)
[2016-11-07] MEDS ORDERED: CARV6.252 PO (12:31)
[2016-11-07] MEDS ORDERED: LISI-420 PO (12:31)
[2016-11-07] MEDS ORDERED: METF500T4 PO (12:31)
[2016-11-07] MEDS ORDERED: ASPI81CT95 PO (12:31)
[2016-11-07] MEDS ORDERED: SPIR25TA PO (12:31)
[2016-11-07] MEDS ORDERED: ATOR20TA40 PO (12:31)
--- NOTE | 2016-11-07 13:00 | NUR ---
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 DR LANDEROS PAGED.
--- NOTE | 2016-11-07 13:20 | NUR ---
DR Arline LANDEROS CALLED BACK, WORK NOTE CLARIFIED, PT HAS NO RESTRICTIONS, OK TO DRIVE PER DR LANDEROS. PT AND HIS SON AWARE, PT TO DC HOME NOW WITH SON. PT AMBULATORY, ESCORTED OUT TO FROM OF THE HOSPITAL.
== END 2016-11-07 13:20 | disposition home or self-care (01) | DRG 469 ==
LOC: MED 14:20 → MTU 17:46
PROVIDERS: ADMIT Preventive Medicine Preventive Medicine/Occupational Environmental Medicine; ATTEND Preventive Medicine Preventive Medicine/Occupational Environmental Medicine
DX: N17.9 Acute kidney failure, unspecified (principal); G93.41 Metabolic encephalopathy; I50.23 Acute on chronic systolic (congestive) heart failure; E43 Unspecified severe protein-calorie malnutrition; I42.9 Cardiomyopathy, unspecified; E83.42 Hypomagnesemia; E11.22 Type 2 diabetes mellitus with diabetic chronic kidney disease; N18.3 Chronic kidney disease, stage 3 (moderate); I13.0 Hypertensive heart and chronic kidney disease with heart failure and stage 1 through stage 4 chronic kidney disease, or unspecified chronic kidney disease; J45.909 Unspecified asthma, uncomplicated; E78.5 Hyperlipidemia, unspecified; E87.6 Hypokalemia; R31.9 Hematuria, unspecified; Z87.891 Personal history of nicotine dependence; Z79.82 Long term (current) use of aspirin; Z79.84 Long term (current) use of oral hypoglycemic drugs; Z79.899 Other long term (current) drug therapy; Z80.1 Family history of malignant neoplasm of trachea, bronchus and lung; Z86.73 Personal history of transient ischemic attack (TIA), and cerebral infarction without residual deficits
CPT/HCPCS: 36415; 70450; 71010; 74160; 76700; 80048; 80053; 80305; 81001; 82550; 82553; 82948; 83605; 83735; 83880; 84100; 84484; 85025; 85610; 85730; 87040; 87081; 87086; 93005; 99285; G0480; G0482; J1815; J2270; J7030; J7042; Q0092; Q9967

== ENCOUNTER 2017-06-18 13:11 | Inpatient (IN) | payer MEDICAID, OTHER ==
[~2017-06-18] VITALS: Ht 170.2 cm; Wt 92.5 kg
[~2017-06-18 13:11] MED LIST changes: -LAS20I PO
[2017-06-18 13:45] VITALS: BP 224/138
--- NOTE | 2017-06-18 13:55 | NUR ---
PATIENT SENT TO LOBBY. DR. CABEZAS AWARE
[2017-06-18 14:55] LABS: BASOPHILS # (AUTO) 0.2 K/uL (0.00-0.22); EOSINOPHILS # (AUTO) 0.1 K/uL (0-0.4); LYMPHOCYTES # (AUTO) 0.8 K/uL (2.0-11.5); RED CELL DISTRIBUTION WIDTH 14.5 % (11.6-13.7)
[2017-06-18 14:57] LABS: BASOPHILS % (AUTO) 2.1 % (0.0-2.0); EOSINOPHILS % (AUTO) 1.1 % (0.0-4.0); HEMATOCRIT 43.5 % (36-52); HEMOGLOBIN 14.1 g/dL (12.0-18.0); MEAN CORPUSCULAR HEMOGLOBIN 29 pg (27-31); MEAN CORPUSCULAR HGB CONC 32 g/dL (33-37); MEAN CORPUSCULAR VOLUME 89.5 fL (80-94); MONOCYTES # (AUTO) 0.6 K/uL (0.8-1.0); MONOCYTES % (AUTO) 6.5 % (1.7-9.3); NEUTROPHILS % (AUTO) 81.3 % (42.2-75.2); PLATELET COUNT (AUTO) 324 K/uL (140-450); RED BLOOD CELL COUNT(AUTO) 4.87 MIL/uL (4.20-6.10); WHITE BLOOD COUNT (AUTO) 8.7 K/uL (4.8-10.8)
[2017-06-18 15:14] LABS: PROTHROMBIN TIME 11.5 secs (10.8-13.4)
[2017-06-18 17:24] LABS: ANION GAP 14.5 (8-16); CREATININE 1.4 mg/dL (0.7-1.3); POTASSIUM 3.5 mmol/L (3.5-5.1)
[2017-06-18 17:25] LABS: ALBUMIN 2.8 g/dL (3.4-5.0); TOTAL BILIRUBIN 0.7 mg/dL (0.0-1.0)
--- NOTE | 2017-06-18 17:35 | NUR ---
patient amb. to bed #12
--- NOTE | 2017-06-18 17:35 | NUR ---
PATIENT PRESENTS TO ED WITH non pitting edema on his grion and lower legs. PT DENIES N/V/D; SKIN IS PINK/WARM/DRY; AAOX4 WITH EVEN AND STEADY GAIT; LUNGS CLEAR BL; HR EVEN AND REGULAR; PT DENIES ANY FEVER, CP, SOB, OR COUGH AT THIS TIME; PATIENT STATES PAIN OF 5/10 AT THIS TIME; PATIENT POSITIONED FOR COMFORT; HOB ELEVATED; BEDRAILS UP X2; BED DOWN. ER MD MADE AWARE OF PT STATUS.
[2017-06-18] MEDS ORDERED: FUROSEMIDE 40 MG/4 ML VIAL IVP ONE (18:25)
[2017-06-18] MEDS ORDERED: ONDANSETRON 4 MG/2 ML VIAL IVP PRN (18:35)
[2017-06-18] MEDS ORDERED: MORPHINE SULFATE 2 MG/ML SYR IVP PRN (18:35)
[2017-06-18] MEDS ORDERED: MORPHINE SULFATE 4 MG/ML SYR IVP PRN (18:35)
[2017-06-18] MEDS ORDERED: ASPIRIN 81 MG TAB.CHEW PO ONE (18:40)
--- NOTE | 2017-06-18 18:47 | NUR ---
Urinal provided and left at bedside.
--- NOTE | 2017-06-18 19:34 | NUR ---
releving report given to Bryant Ibarra
[2017-06-18] MEDS ORDERED: hydrALAZINE 20 MG/ML VIAL IVP ONE (19:35)
--- NOTE | 2017-06-18 20:10 | NUR ---
CALLED AND SPOKE TO EMERSON COLÓN, DELAY IN BRINGING PT TO FLOOR UNTIL SBP 180 OR BELOW;
[2017-06-18] MEDS ORDERED: LABETALOL 100 MG/20 ML VIAL IV ONE (20:40)
--- NOTE | 2017-06-18 21:17 | NUR ---
Patient will be admitted to care of DR VELASQUEZ. Admited to TELE. Will go to room 119B. Belongings list completed. Report to SAMUEL MENG .
[2017-06-18 21:20] VITALS: BP 195/107
--- NOTE | 2017-06-18 21:20 | NUR ---
RECEIVED PT FROM ER VIA DEAN PT IS AAOX4 AMBULATES WITH MACHINE I TRIMMER ON FLAKER OPERATOR SR INVERTED T HL ON RT AC PATENT PT IS ORIENTED TO THE FLOOR CALL LIGHT WITHIN REACH THANG GARCIA PROTOCOL TAKEN AND SENT TO LAB ; VITALS SIGNS TEMP 98.7 HR 89 BLOOD PRESSURE 195/107 02 SAT 100% ER NURSE AT BED SIDE AND CHARGE NURSE AWARE OF VITALS SIGNS IN ER WAS GIVEN HYDRALAZINE AT 1938 PT ON CLOSE MONITORING
[2017-06-18] MEDS: CARVEDILOL 6.25 MG TAB PO SCH (21:26)
[2017-06-18] MEDS: ATORVASTATIN 20 MG TAB PO SCH (21:26)
[2017-06-18] MEDS: BLOOD GLUCOSE MONITORING 1 DEV DEV FS SCH (21:33)
--- NOTE | 2017-06-18 22:00 | NUR ---
BLOOD SUGAR TEST 113 AND PT EATS HS SNACK ON TELMETRY SR INVERTED T WAVE
--- NOTE | 2017-06-18 22:01 | NUR ---
2114 ASSESSED PT FR HHNTX, ROOM AIR SATS 100% BS ARE CLEAR NO HHNTX INDICATED AT THIS TIME
--- NOTE | 2017-06-18 22:15 | NUR ---
PT BP 160/95 HR 89 PT WAS GIVEN COREG TO FOLLOW ORDER, BP WILL BE MONITORING
[2017-06-19] VITALS: BP 162/90
[2017-06-19] MEDS: hydrALAZINE 20 MG/ML VIAL IVP PRN ×3 (00:20→22:32)
--- NOTE | 2017-06-19 01:18 | NUR ---
VOIDING WELL GETTING SLEEP NOT DISTRESS NOTED ON TELMETRY SR INVERTED TWAVE
[2017-06-19 03:36] LABS: CREATINE KINASE MB 15.3 ng/mL (0-3.6)
[2017-06-19 04:00] VITALS: BP 153/88
--- NOTE | 2017-06-19 04:00 | NUR ---
SPONGE BATH GIVEN LINEN CHANGED PT DENIES ANY PAIN, ON TELEMETRY SR INVERTED T WAVE
[2017-06-19] MEDS: FUROSEMIDE 40 MG/4 ML VIAL IVP SCH ×3 (05:24→22:15)
[2017-06-19] MEDS: BLOOD GLUCOSE MONITORING 1 DEV DEV FS SCH ×4 (06:04→21:00)
--- NOTE | 2017-06-19 06:08 | NUR ---
PT RESTING ON BED NOT DISTRESS NOTED ON TELEMETRY BLOOD SUGAR TEST 110
[2017-06-19 06:46] LABS: BASOPHILS # (AUTO) 0.2 K/uL (0.00-0.22); BASOPHILS % (AUTO) 3.1 % (0.0-2.0); EOSINOPHILS # (AUTO) 0.2 K/uL (0-0.4); EOSINOPHILS % (AUTO) 2.9 % (0.0-4.0); HEMATOCRIT 41.8 % (36-52); HEMOGLOBIN 13.1 g/dL (12.0-18.0); LYMPHOCYTES # (AUTO) 0.7 K/uL (2.0-11.5); LYMPHOCYTES % (AUTO) 9.1 % (20.5-51.1); MEAN CORPUSCULAR HEMOGLOBIN 29 pg (27-31); MEAN CORPUSCULAR HGB CONC 32 g/dL (33-37); MEAN CORPUSCULAR VOLUME 90.4 fL (80-94); MONOCYTES # (AUTO) 0.7 K/uL (0.8-1.0); MONOCYTES % (AUTO) 8.7 % (1.7-9.3); NEUTROPHILS # (AUTO) 6.1 K/uL (1.8-7.7); NEUTROPHILS % (AUTO) 76.2 % (42.2-75.2); PLATELET COUNT (AUTO) 313 K/uL (140-450); RED BLOOD CELL COUNT(AUTO) 4.62 MIL/uL (4.20-6.10); RED CELL DISTRIBUTION WIDTH 14.4 % (11.6-13.7); WHITE BLOOD COUNT (AUTO) 7.9 K/uL (4.8-10.8)
--- NOTE | 2017-06-19 07:30 | NUR ---
RECEIVED PT FROM STUDIO SET UP WORKER RN. PT IS AAOX4, ON TELE MONITOR. IV NOTED TO THE RIGHT AC 20G, ASYMPTOMATIC, PATENT AND INTACT, SL. PT DENIES PAIN BUT HEADACHE. NO S/S OF ACUTE DISTRESS AT THIS TIME, PT IS ON RM AIR. PT VOIDING VIA URINAL. PERSONAL ITEMS PLACED CLOSE TO PT. FALL PRECAUTIONS IN PLACE, CALL LIGHT WITHIN REACH. WILL CONTINUE TO MONITOR.
--- NOTE | 2017-06-19 07:35 | NUR ---
PATIENT IS AWAKE AND ALERT. SITTING UP IN BED. O2 SAT 100% ON ROOM AIR. BREATH SOUNDS CLEAR BILATERALLY. PATIENT STATES THAT HE IS NOT SOB. NO BREATHING TX INDICATED AT THIS TIME. WILL CONTINUE TO MONITOR.
[2017-06-19 07:45] VITALS: BP 192/117
--- NOTE | 2017-06-19 08:10 | NUR ---
BP WAS 192/117, REASSESSED BP AFTER HYDRALAZINE BP 141/83. PT'S HEADACHE IMPROVED A LITTLE, STILL WANTS TYLENOL. DR VIRAMONTES IS AWARE. PT C/O DRY AND CRACK SKIN OF THE FINGERS, REPORTED TO DR VIRAMONTES, ORDER FOR TRIAMCINOLONE HAS BEEN PUT IN.
--- NOTE | 2017-06-19 09:00 | NUR ---
LUNG SOUNDS SHOW SOME WHEEZING. CALLED RT FOR BREATHING TX.
[2017-06-19] MEDS: amLODIPine 5 MG TAB PO SCH (09:20)
[2017-06-19] MEDS: SPIRONOLACTONE 25 MG TAB PO SCH ×2 (09:21→17:29)
[2017-06-19] MEDS: ASPIRIN 81 MG TAB.CHEW PO SCH (09:21)
[2017-06-19] MEDS: LISINOPRIL 20 MG TAB PO SCH (09:22)
[2017-06-19] MEDS: CARVEDILOL 6.25 MG TAB PO SCH ×2 (09:22→22:09)
[2017-06-19] MEDS: ACETAMINOPHEN 325 MG TAB PO PRN ×2 (09:28→22:08)
[2017-06-19] MEDS: ENOXAPARIN 40 MG/0.4 ML SYR SUBQ SCH (09:28)
[2017-06-19] MEDS ORDERED: TRIAMCINOLONE 0.025% CRM 15 GM TUBE TP PRN ×2 (09:30→09:38)
[2017-06-19] MEDS: ALBUTEROL 0.083% 2.5 MG/3 ML NEBU IH PRN ×2 (09:41→20:22)
--- NOTE | 2017-06-19 09:45 | NUR ---
RN CALLED FOR BREATHING TX. PATIENT DOES NOT APPEAR TO BE IN RESPIRATORY DISTRESS. PT STATES THAT HE IS WHEEZING ALTHOUGH BILAT AUSCULTATION DOES NOT REVEAL WHEEZING. PT DOES NOT COMPLAIN OF SOB BUT DOES COMPLAIN TO FEEL SOME TIGHTNESS DURING BREATHING. PRN TX ADMINISTERED. PT TOLERATED TX WELL TO WHICH HE STATES THAT HE FEELS BETTER. BREATH SOUNDS REMAIN CLEAR BILAT. WILL CONTINUE TO MONITOR.
--- NOTE | 2017-06-19 10:27 | NUR ---
PATIENT HAS BEEN SCREENED AND CATEGORIZED MODERATE NUTRITION RISK. PATIENT WILL BE SEEN WITHIN 3-5 DAYS OF ADMISSION. 06/21/17 - 06/23/[address]
[2017-06-19 12:00] VITALS: BP 123/75
--- NOTE | 2017-06-19 12:00 | NUR ---
PT RESTING IN BED, BLOOD SUGAR CHECKED, DENIES CHEST PAIN. VITALS TAKEN.
--- NOTE | 2017-06-19 13:42 | NUR ---
FAXED INITIAL REVIEW TO [facility] [phone] PHONE ROBERT [phone].
--- NOTE | 2017-06-19 15:15 | NUR ---
PT IS RESTING IN BED, LOOKING AT HIS PHONE. DENIES CHEST PAIN AND ANY DISCOMFORT. PT WANTS TO RINSE HIS NOSE WITH SALINE AND HIS SUPPLY IS IN HIS BACKPACK. WILL ASK DR VIRAMONTES IF IT'S OK.
--- NOTE | 2017-06-19 15:30 | NUR ---
NOTIFIED DR VIRAMONTES ABOUT THE TROP 0.47. DR VIRAMONTES ORDERED TO NOTIFY DR PALIWAL. Taylor. DR VIRAMONTES IS OK WITH PT USING SALINE RINSE FOR THE NOSE, AND PNA VACCINE AT MT.
[2017-06-19 16:00] VITALS: BP 135/78
[2017-06-19] MEDS ORDERED: PNEUMOCOCCAL VACCINE 23 MCG/0.5 ML VIAL IMVAC SCH ×3 (16:00)
--- NOTE | 2017-06-19 19:25 | NUR ---
SEEN PATIENT LYING COMFORTABLE IN BED. CALL LIGHTS WITHIN REACH. ALL NEEDS. NO S/S OF ACUTE DISTRESS NOTED AT THIS TIME.
--- NOTE | 2017-06-19 19:30 | NUR ---
ENDORSED PT TO REFRIGERATION UNIT REPAIRER RN. PT IN STABLE CONDITION.
--- NOTE | 2017-06-19 20:21 | NUR ---
AWAKE AND ALERT RESPONSIVE TO OPTIMIZATION CONSULTANT VERBAL COMMANDS PATIENT ASSESSMENT DONE REVIEWED CXR DATED 06/18/2017 HHN PRN THERAPY GIVEN AT THIS TIME TOLERATED WELL WITHOUT ADVERSE REACTIONS NOTED
[2017-06-19 20:40] VITALS: BP 148/98
--- NOTE | 2017-06-19 21:15 | NUR ---
SEEN PATIENT ASLEEP IN BED. CALL LIGHTS WITHIN REACH. WILL CONTINUE TO MONITOR.
[2017-06-19] MEDS: ATORVASTATIN 20 MG TAB PO SCH (22:08)
[2017-06-19] MEDS: INSULIN LISPRO SLIDING SCALE 100 UNITS/ML VIAL SUBQ PRN (22:18)
[2017-06-20] VITALS: BP 133/87
[2017-06-20 00:43] LABS: CREATINE KINASE MB 6.7 ng/mL (0-3.6)
--- NOTE | 2017-06-20 01:12 | NUR ---
LAB CALLED ABOUT TROPONIN LEVEL 0.690.
--- NOTE | 2017-06-20 01:15 | NUR ---
CALLED DR. HERNANDEZ ABOUT TROPONIN LEVEL ELEVATED 0.690. SHE TOLD ME TO CALL [employer] F[employer] WORKER DR. MEENA Ortiz
--- NOTE | 2017-06-20 01:49 | NUR ---
CALLED DR. LANDEROS ABOUT TROPONIN LEVEL 0.690. NO CHANGES MADE INSTRUCTED BY .
--- NOTE | 2017-06-20 03:13 | NUR ---
SEEN PATIENT ASLEEP IN BED. CALL LIGHTS WITHIN REACH.
[2017-06-20 04:00] VITALS: BP 149/87
[2017-06-20] MEDS: FUROSEMIDE 40 MG/4 ML VIAL IVP SCH (04:49)
[2017-06-20] MEDS: ALBUTEROL 0.083% 2.5 MG/3 ML NEBU IH PRN (05:39)
[2017-06-20] MEDS: ACETAMINOPHEN 325 MG TAB PO PRN (06:22)
[2017-06-20] MEDS: BLOOD GLUCOSE MONITORING 1 DEV DEV FS SCH ×2 (06:26→11:22)
[2017-06-20 06:44] LABS: BASOPHILS # (AUTO) 0.3 K/uL (0.00-0.22); BASOPHILS % (AUTO) 3.7 % (0.0-2.0); EOSINOPHILS # (AUTO) 0.2 K/uL (0-0.4); EOSINOPHILS % (AUTO) 3.1 % (0.0-4.0); HEMATOCRIT 38.9 % (36-52); HEMOGLOBIN 12.6 g/dL (12.0-18.0); LYMPHOCYTES # (AUTO) 0.9 K/uL (2.0-11.5); LYMPHOCYTES % (AUTO) 12.3 % (20.5-51.1); MEAN CORPUSCULAR HEMOGLOBIN 29 pg (27-31); MEAN CORPUSCULAR HGB CONC 33 g/dL (33-37); MEAN CORPUSCULAR VOLUME 89.9 fL (80-94); MONOCYTES # (AUTO) 0.6 K/uL (0.8-1.0); MONOCYTES % (AUTO) 7.7 % (1.7-9.3); NEUTROPHILS # (AUTO) 5.2 K/uL (1.8-7.7); NEUTROPHILS % (AUTO) 73.2 % (42.2-75.2); PLATELET COUNT (AUTO) 301 K/uL (140-450); RED BLOOD CELL COUNT(AUTO) 4.32 MIL/uL (4.20-6.10); RED CELL DISTRIBUTION WIDTH 14.6 % (11.6-13.7); WHITE BLOOD COUNT (AUTO) 7.2 K/uL (4.8-10.8)
--- NOTE | 2017-06-20 07:25 | NUR ---
ENDORSED PATIENT TO AM SHIFT NURSE. PATIENT IN STABLE CONDITION.
--- NOTE | 2017-06-20 07:30 | NUR ---
RECEIVED PATIENT REPORT AT BEDSIDE. PATIENT AWAKE AO X4. NO S/S OF DISTRESS. PT ON RA. NO SOB. NO COMPLAINTS OF PAIN AT THIS TIME. IV LOCK NOTED ON RAC 20G. FLUSHED LINE INFUSING WELL PATENT. BED LOWERED WITH CALL LIGHT WITHIN REACH. WILL CONTINUE TO MONITOR.
[2017-06-20 08:00] VITALS: BP 176/103
--- NOTE | 2017-06-20 08:10 | NUR ---
PATIENT AWAKE AND ALERT. SITTING UP IN BED. BS CLEAR. PATIENT STATES NO SOB. NO RESPIRATORY DISTRESS NOTED AT THIS TIME. NO TX INDICATED AT THIS TIME. WILL CONTINUE TO MONITOR.
[2017-06-20] MEDS ORDERED: POLYETHYLENE GLYCOL 17 GM/PKT PO SCH (08:35)
--- NOTE | 2017-06-20 08:36 | NUR ---
PATIENT C/O CONSTIPATION, DR VIRAMONTES NOTIFIED AND ORDERED TO GIVE MIRALAX 17 GM DAILY PRN FOR CONSTIPATION. WILL PLACE ORDERS.
[2017-06-20 08:39] LABS: ALBUMIN 2.2 g/dL (3.4-5.0); ANION GAP 11.4 (8-16); CARBON DIOXIDE 29.3 mmol/L (21-32); CREATININE 1.3 mg/dL (0.7-1.3); TOTAL BILIRUBIN 0.6 mg/dL (0.0-1.0)
[2017-06-20] MEDS: ASPIRIN 81 MG TAB.CHEW PO SCH (08:50)
[2017-06-20] MEDS: CARVEDILOL 6.25 MG TAB PO SCH (08:50)
[2017-06-20] MEDS: LISINOPRIL 20 MG TAB PO SCH (08:50)
[2017-06-20] MEDS: amLODIPine 5 MG TAB PO SCH (08:51)
[2017-06-20] MEDS: SPIRONOLACTONE 25 MG TAB PO SCH (08:51)
[2017-06-20] MEDS: ENOXAPARIN 40 MG/0.4 ML SYR SUBQ SCH (08:58)
--- NOTE | 2017-06-20 09:00 | NUR ---
GAVE PT HIS MEDICATION PT TOLERATED WELL. PATIENT WAS ALSO GIVEN PRUNE JUICE TO HELP WITH HAVING A BOWEL MOVEMENT. PATIENT IN STABLE CONDITION WILL CONTINUE TO MONITOR.
[2017-06-20 09:09] LABS: POTASSIUM 2.7 mmol/L (3.5-5.1)
--- NOTE | 2017-06-20 09:18 | NUR ---
CRITICAL VALUE 2.7 OF POTASSIUM, DR VIRAMONTES ORDERED TO GIVE K DUR 20 MEQ ONCE AND K RIDER WITH LIDOCAINE 40 MEQ IV ONCE. AFTER INFUSION IS DONE TO ORDER POTASSIUM LAB LEVEL. WILL PLACE ORDERS.
[2017-06-20] MEDS ORDERED: KCL 20 MEQ/WATER INJ PREMIX 200 ML IV ONE (09:20)
[2017-06-20 09:38] LABS: CHOL/HDL RATIO 2.3 (1-4.5); MAGNESIUM 1.6 mg/dL (1.8-2.4); PHOSPHORUS 3.8 mg/dL (2.5-4.9)
[2017-06-20] MEDS ORDERED: POTASSIUM CHLORIDE 10 MEQ TABER PO SCH ×2 (09:47→10:33)
[2017-06-20] MEDS ORDERED: POTASSIUM CHLORIDE 40 MEQ, LIDOCAINE 1% 25 MG in NACL 0.9% 250 ML IV SCH (10:30)
[2017-06-20] MEDS ORDERED: POLYETHYLENE GLYCOL 17 GM/PKT PO PRN (10:45)
[2017-06-20] MEDS: INSULIN LISPRO SLIDING SCALE 100 UNITS/ML VIAL SUBQ PRN (11:12)
[2017-06-20 12:00] VITALS: BP 133/80
--- NOTE | 2017-06-20 12:32 | NUR ---
MAGNESIUM IS 1.6, DR VIRAMONTES NOTIFIED AND ORDERED TO GIVE MAG OX 800 MG PO X ONE. WILL PLACE ORDER.
[2017-06-20] MEDS ORDERED: MAGNESIUM OXIDE 400 MG TAB PO SCH (13:00)
--- NOTE | 2017-06-20 14:18 | NUR ---
FAXED CONCURRENT REVIEW TO [facility] [phone] PHONE ROBERT [phone]
[2017-06-20] MEDS ORDERED: ATOR20TA PO (14:26)
[2017-06-20] MEDS ORDERED: FURO-572 PO (14:27)
[2017-06-20] MEDS ORDERED: POTA10TE30 PO (14:28)
[2017-06-20] MEDS ORDERED: ALBU0.0912 INH (14:31)
--- NOTE | 2017-06-20 16:10 | NUR ---
PATIENT HAS BEEN DISCHARGED, ALL PAPERWORK SIGNED, ALL DISCHARGE INSTRUCTIONS AND PRESCRIPTIONS IN PATIENT'S POSSESSION. ALL BELONGINGS WITH PATIENT. IV DISCONTINUED WITH CANNULA INTACT. WRISTBANDS REMOVED AND TELE BOX REMOVED. PATIENT PREFERRED TO WALK OFF UNIT, AMB WITH STEADY GAIT. PATIENT LEFT IN STABLE CONDITION.
[2017-06-20] MEDS ORDERED: FUROSEMIDE 20 MG TAB PO SCH (21:00)
== END 2017-06-20 16:10 | disposition home or self-care (01) | DRG 194 ==
LOC: MED 13:11 → MTU 18:37
PROVIDERS: ADMIT Hospitalist; ATTEND Hospitalist
PROC: 3E0234Z Introduction of Serum, Toxoid and Vaccine into Muscle, Percutaneous Approach (ICD-10-PCS; principal; 2017-06-19)
DX: I11.0 Hypertensive heart disease with heart failure (principal); I21.A1 Myocardial infarction type 2; E43 Unspecified severe protein-calorie malnutrition; J45.901 Unspecified asthma with (acute) exacerbation; E83.42 Hypomagnesemia; I50.23 Acute on chronic systolic (congestive) heart failure; I42.9 Cardiomyopathy, unspecified; E78.5 Hyperlipidemia, unspecified; E11.9 Type 2 diabetes mellitus without complications; Z23 Encounter for immunization; Z68.32 Body mass index [BMI] 32.0-32.9, adult; Z79.84 Long term (current) use of oral hypoglycemic drugs; Z79.82 Long term (current) use of aspirin; Z79.899 Other long term (current) drug therapy
CPT/HCPCS: 36415; 71045; 80053; 82550; 82553; 82948; 83036; 83735; 83880; 84100; 84132; 84484; 85025; 85610; 85730; 87081; 90732; 93005; 94640; 96374; 96375; 99285; J0360; J1650; J1815; J1940; J2001; J3480; J3490; J7030; J7613

== ENCOUNTER 2018-02-13 16:54 | Inpatient (IN) | payer OTHER ==
[~2018-02-13] VITALS: Ht 170.2 cm; Wt 90.3 kg
[~2018-02-13 16:54] MED LIST changes: +ALBU0.0912 INH; +ATOR20TA PO; -ATOR20TA40 PO; +FURO-572 PO; +METF-988 PO; -METF500T4 PO
[2018-02-13 16:59] VITALS: BP 198/139
--- NOTE | 2018-02-13 17:10 | NUR ---
no available beds at this time. pt w/ high blood pressure. placed in a chair near the nurses station to observe until a bed is available. will closely monitor. pharmacy intern and er md notified of pt status.
--- NOTE | 2018-02-13 17:25 | NUR ---
57 yo m bib self w/ c/o generalized edema. noted edema to bl arms, hands legs, feet, ankles. pt sent over from [facility], dr shaikh "to be drained". pt reports feeling a little short of breath, states the pcp checked his lungs today and stated that he is "okay" just with a lot of flluid. no s/s of acute repiratory distress. speaking in full, complete sentences at this time. aaox4, gcs 15, ambulatory w/ steady gait. lungs bl clear w/ even rr.
--- NOTE | 2018-02-13 19:02 | NUR ---
XRAY AND LAB AT BEDSIDE.
--- NOTE | 2018-02-13 19:11 | NUR ---
GOT REPORT FROM LAURA MENG
[2018-02-13 19:16] LABS: BASOPHILS # (AUTO) 0.1 K/uL (0.00-0.22); BASOPHILS % (AUTO) 0.9 % (0.0-2.0); EOSINOPHILS # (AUTO) 0.2 K/uL (0-0.4); EOSINOPHILS % (AUTO) 2.6 % (0.0-4.0); HEMATOCRIT 39.2 % (36-52); HEMOGLOBIN 12.2 g/dL (12.0-18.0); MEAN CORPUSCULAR HEMOGLOBIN 25 pg (27-31); MEAN CORPUSCULAR HGB CONC 31 g/dL (33-37); MEAN CORPUSCULAR VOLUME 78.6 fL (80-94); MONOCYTES # (AUTO) 0.6 K/uL (0.8-1.0); MONOCYTES % (AUTO) 7.6 % (1.7-9.3); NEUTROPHILS # (AUTO) 6.3 K/uL (1.8-7.7); NEUTROPHILS % (AUTO) 76.9 % (42.2-75.2); PLATELET COUNT (AUTO) 294 K/uL (140-450); RED BLOOD CELL COUNT(AUTO) 4.99 MIL/uL (4.20-6.10); RED CELL DISTRIBUTION WIDTH 21.5 % (11.6-13.7); WHITE BLOOD COUNT (AUTO) 8.2 K/uL (4.8-10.8)
[2018-02-13 19:24] LABS: ANION GAP 10.9 (8-16); CARBON DIOXIDE 29.4 mmol/L (21-32); CREATININE 1.4 mg/dL (0.7-1.3); POTASSIUM 3.3 mmol/L (3.5-5.1)
[2018-02-13 19:30] LABS: ALBUMIN 3.1 g/dL (3.4-5.0)
[2018-02-13] MEDS ORDERED: FUROSEMIDE 40 MG/4 ML VIAL IVP ONE (19:50)
[2018-02-13] MEDS ORDERED: ASPIRIN 325 MG TAB PO ONE (19:55)
[2018-02-13] MEDS ORDERED: DEXTROSE 50% 50 ML SYR IVP PRN (20:00)
[2018-02-13] MEDS ORDERED: HYDROcodone/APAP 5/325 MG 1 TAB TAB PO PRN (20:00)
[2018-02-13] MEDS ORDERED: ACETAMINOPHEN 325 MG TAB PO PRN (20:00)
[2018-02-13] MEDS ORDERED: LORazepam 2 MG/ML VIAL IVP PRN (20:00)
[2018-02-13] MEDS ORDERED: ALBUTEROL HFA MDI 90 MCG/ACTUATION 8 GM INH SCH (20:15)
[2018-02-13 20:40] VITALS: BP 182/116
--- NOTE | 2018-02-13 20:40 | NUR ---
REPORT RECEIVED FROM ED NURSE AT BEDSIDE. PT IN STABLE CONDITION. AAOX4. INTRODUCED SELF TO PT. BOARD UPDATED. NO COMPLAINTS OF PAIN. NO SOB. IV SITE L AC 18G SL PATENT AND INTACT. SKIN WARM, DRY, AND INTACT WITH NO OPEN WOUNDS. BED LOCKED IN LOW POSITION. CALL MOON WITHIN REACH. SAFETY PRECAUTIONS IN PLACE.
--- NOTE | 2018-02-13 20:50 | NUR ---
PT TRANFERED BY SARAH TO RM 111B. VSS AT TRANSFER. REPORT GIVEN TO KACY MENG.
--- NOTE | 2018-02-13 20:55 | NUR ---
MD NOTIFIED OF BP OF 182/116. WAITING FOR MD TO RETURN CALL.
[2018-02-13] MEDS ORDERED: CARVEDILOL 6.25 MG TAB PO SCH (21:00)
--- NOTE | 2018-02-13 21:10 | NUR ---
MD CALLED BACK. NEW ORDERS FOR AMLODIPINE 10MG PO ONCE. ALSO ORDERED HYDRALAZINE 10MG PO Q4H PRN FOR SYSTOLIC BP >160.
[2018-02-13] MEDS: BLOOD GLUCOSE MONITORING 1 DEV DEV FS SCH (21:14)
--- NOTE | 2018-02-13 21:14 | NUR ---
BS 107. NO INSULIN COVERAGE NEEDED.
[2018-02-13] MEDS ORDERED: hydrALAZINE 10 MG TAB PO PRN (21:20)
[2018-02-13] MEDS ORDERED: amLODIPine 5 MG TAB PO ONE (21:20)
--- NOTE | 2018-02-13 21:31 | NUR ---
AMLODIPINE GIVEN PO, COREG GIVEN PO. PT TOLERATED WELL.
[2018-02-14] VITALS: BP_SYST 135; BP_SYST 145; BP_DIAS 77; BP_DIAS 85
[2018-02-14] MEDS: ALBUTEROL 0.083% 2.5 MG/3 ML NEBU INH SCH ×4 (01:00→19:14)
--- NOTE | 2018-02-14 01:20 | NUR ---
PT COMPLAINS OF PAIN AT THE IV SITE. WILL INSERT NEW IV.
--- NOTE | 2018-02-14 01:30 | NUR ---
PREVIOUS IV SITE DC. CANNULA INTACT. NEW IV INSERTED R WRIST 20G. 1 ATTEMPT TAKEN. FLUSHES WELL. NAMED, DATED, AND INITIALED. PT TOLERATED WELL.
--- NOTE | 2018-02-14 01:55 | NUR ---
PT FELT NAUSEA, AND BEFORE TO STARTING A HHNTX , PT STARTING TROWING UP, HOLD HHNTX FOR THIS ANTHONY.. PT SAT 99% ON ROOM AIR
--- NOTE | 2018-02-14 02:00 | NUR ---
PT HAD A BOUT OF VOMITING. PT SAID HE FELT SWEATY AND 5 MINUTES LATER VOMITED. ZOFRAN GIVEN IVP FOR N/V@0206. PT TOLERATED WELL.
[2018-02-14] MEDS: ONDANSETRON 4 MG/2 ML VIAL IVP PRN ×2 (02:06→17:24)
[2018-02-14 03:18] LABS: CREATINE KINASE MB 4.5 ng/mL (0-3.6)
[2018-02-14 04:00] VITALS: BP 128/82
[2018-02-14] MEDS: BLOOD GLUCOSE MONITORING 1 DEV DEV FS SCH ×4 (05:36→20:21)
--- NOTE | 2018-02-14 05:36 | NUR ---
BS 140. NO INSULIN COVERAGE NEEDED.
[2018-02-14 06:22] LABS: ALBUMIN 2.5 g/dL (3.4-5.0); ANION GAP 9.9 (8-16); CARBON DIOXIDE 28.6 mmol/L (21-32); CREATININE 1.4 mg/dL (0.7-1.3); MAGNESIUM 1.8 mg/dL (1.8-2.4); POTASSIUM 3.5 mmol/L (3.5-5.1); TOTAL BILIRUBIN 0.9 mg/dL (0.0-1.0)
[2018-02-14 06:42] LABS: BASOPHILS # (AUTO) 0.1 K/uL (0.00-0.22); BASOPHILS % (AUTO) 1.1 % (0.0-2.0); EOSINOPHILS # (AUTO) 0.1 K/uL (0-0.4); EOSINOPHILS % (AUTO) 1.9 % (0.0-4.0); HEMATOCRIT 35.6 % (36-52); HEMOGLOBIN 10.8 g/dL (12.0-18.0); LYMPHOCYTES # (AUTO) 0.8 K/uL (2.0-11.5); LYMPHOCYTES % (AUTO) 11.8 % (20.5-51.1); MEAN CORPUSCULAR HEMOGLOBIN 24 pg (27-31); MEAN CORPUSCULAR HGB CONC 30 g/dL (33-37); MEAN CORPUSCULAR VOLUME 78.7 fL (80-94); MONOCYTES # (AUTO) 0.3 K/uL (0.8-1.0); MONOCYTES % (AUTO) 4.5 % (1.7-9.3); NEUTROPHILS # (AUTO) 5.8 K/uL (1.8-7.7); NEUTROPHILS % (AUTO) 80.7 % (42.2-75.2); PLATELET COUNT (AUTO) 240 K/uL (140-450); RED BLOOD CELL COUNT(AUTO) 4.53 MIL/uL (4.20-6.10); RED CELL DISTRIBUTION WIDTH 21.5 % (11.6-13.7); WHITE BLOOD COUNT (AUTO) 7.2 K/uL (4.8-10.8)
--- NOTE | 2018-02-14 07:10 | NUR ---
REPORT GIVEN TO AM NURSE AT BEDSIDE. PT IN STABLE CONDITION.
--- NOTE | 2018-02-14 07:23 | NUR ---
RECEIVED PATIENT ON ROOM AIR, O2 SAT 95%. SCHEDULED BREATHING TREATMENT ADMINISTERED. PATIENT TOLERATED TX WELL. NO ADVERSE SIDE EFFECTS. NO RESPIRATORY DISTRESS NOTED AT THIS TIME. WILL CONTINUE TO MONITOR.
--- NOTE | 2018-02-14 07:24 | NUR ---
RECEIVED REPORT FROM PARLOR MAID NURSE. PATIENT LYING DOWN IN BED COMFORTABLY. NO DISTRESS NOTED. DENIES ANY PAIN. ABLE TO WALK TO BATHROOM AND BACK TO BED WITH STEADY GAIT. AAOX4, CALM, COOPERATIVE, SKIN COLOR APPROPRIATE TO ETHNICITY. SKIN IS INTACT. IV SITE INTACT, PATENT, ON SALINE LOCK. LUNGS CTA ON ALL LOBES. +1 PITTING EDEMA NOTED ON B/L LE. REVIEWED PLAN OF CARE WITH PATIENT. PATIENT VERBALIZED UNDERSTANDING. SAFETY MEASURES IN PLACE. CALL LIGHT WITHIN REACH. WILL CONTINUE TO MONITOR.
[2018-02-14 08:00] VITALS: BP 145/90
[2018-02-14] MEDS ORDERED: ALBUTEROL 0.083% 2.5 MG/3 ML NEBU INH PRN (08:20)
[2018-02-14] MEDS: LISINOPRIL 20 MG TAB PO SCH (08:43)
[2018-02-14] MEDS: CARVEDILOL 12.5 MG TAB PO SCH ×2 (08:44→20:28)
[2018-02-14] MEDS: ASPIRIN 81 MG TAB.CHEW PO SCH (08:44)
[2018-02-14] MEDS: ATORVASTATIN 20 MG TAB PO SCH (08:44)
[2018-02-14] MEDS: SPIRONOLACTONE 25 MG TAB PO SCH ×2 (08:44→17:21)
[2018-02-14] MEDS: ENOXAPARIN 40 MG/0.4 ML SYR SUBQ SCH (08:46)
--- NOTE | 2018-02-14 08:56 | NUR ---
PATIENT SITTING IN BED WATCHING TV. NO DISTRESS NOTED. DENIES ANY PAIN. SCHEDULED MEDICATIONS DUE GIVEN. COMPLAINS OF A HEADACHE. TYLENOL GIVEN. SAFETY MEASURES IN PLACE, CALL LIGHT WITHIN REACH. WILL CONTINUE TO MONITOR.
[2018-02-14] MEDS ORDERED: FUROSEMIDE 40 MG/4 ML VIAL IVP SCH (09:00)
[2018-02-14] MEDS ORDERED: NON-FORMULARY ITEM (Spironolactone (Aldactone) 25 MG) PO SCH (09:00)
[2018-02-14] MEDS ORDERED: ASPIRIN 81 MG TAB.CHEW PO SCH (09:00)
[2018-02-14] MEDS ORDERED: NON-FORMULARY ITEM (Aspirin 81 MG) PO SCH (09:00)
[2018-02-14] MEDS ORDERED: NON-FORMULARY ITEM (Lisinopril 40 MG) PO SCH (09:00)
--- NOTE | 2018-02-14 10:48 | NUR ---
DR. GREEN AT BEDSIDE REVIEWING PLAN OF CARE WITH PATIENT. WILL CONTINUE TO MONITOR.
--- NOTE | 2018-02-14 11:14 | NUR ---
PATIENT HAS BEEN SCREENED AND CATEGORIZED MODERATE NUTRITION RISK. PATIENT WILL BE SEEN WITHIN 3-5 DAYS OF ADMISSION. 02/16/18 02/18/18 MANUELA GRIFFITH MBA, RD
[2018-02-14] MEDS: INSULIN LISPRO SLIDING SCALE 100 UNITS/ML VIAL SUBQ PRN (11:59)
[2018-02-14 12:00] VITALS: BP 148/93
[2018-02-14] MEDS: FUROSEMIDE 40 MG/4 ML VIAL IVP SCH ×3 (12:00→23:46)
--- NOTE | 2018-02-14 13:38 | NUR ---
PATIENT SITTING IN BED TALKING ON THE PHONE WITH FAMILY. NO DISTRESS NOTED. DENIES ANY PAIN. SAFETY MEASURES IN PLACE, CALL LIGHT WITHIN REACH. WILL CONTINUE TO MONITOR.
--- NOTE | 2018-02-14 14:06 | NUR ---
SCHEDULED BREATHING TREATMENT ADMINISTERED. PATIENT TOLERATED TX WELL, NO ADVERSE SIDE EFFECTS. NO RESPIRATORY DISTRESS NOTED AT THIS TIME. WILL CONTINUE TO MONITOR.
[2018-02-14 16:00] VITALS: BP 143/91
--- NOTE | 2018-02-14 17:00 | NUR ---
PATIENT WENT FROM SITTING TO STANDING POSITION. COMPLAINS OF DIZZINESS AND NAUSEA, SMALL VOMIT X1. DIAPHORESIS NOTED. DENIES SOB. PATIENT WENT BACK TO LYING POSITION FOR 10 MIN AND NO LONGER FEELS DIZZINESS. BP:135/85, PULSE:57. WILL GIVE ZOFRAN. WILL NOTIFY MD. WILL CONTINUE TO MONITOR.
--- NOTE | 2018-02-14 17:29 | NUR ---
PATIENT LYING DOWN IN BED SLEEPING, AROUSABLE BY VOICE. NO DISTRESS NOTED. DENIES ANY PAIN. COMPLAINS OF NAUSEA. ZOFRAN GIVEN PER ORDERS. WILL CONTINUE TO MONITOR.
[2018-02-14] MEDS ORDERED: METF-988 PO (18:24)
[2018-02-14 19:00] LABS: ANION GAP 9.4 (8-16); CARBON DIOXIDE 30.6 mmol/L (21-32); CREATININE 1.8 mg/dL (0.7-1.3)
--- NOTE | 2018-02-14 19:21 | NUR ---
GAVE REPORT TO JEWELSMITH NURSE FOR CONTINUITY OF CARE. PATIENT IN STABLE CONDITION.
--- NOTE | 2018-02-14 19:22 | NUR ---
REPORT RECEIVED FROM AM NURSE AT BEDSIDE. PT IN STABLE CONDITION. AAOX4. INTRODUCED SELF TO PT. BOARD UPDATED. NO COMPLAINTS OF PAIN. NO SOB. IV SITE R WRIST 20G SL PATENT AND INTACT. SKIN WARM, DRY, AND INTACT WITH NO OPEN WOUNDS. BED LOCKED IN LOW POSITION. CALL MOON WITHIN REACH. SAFETY PRECAUTIONS IN PLACE.
[2018-02-14 20:00] VITALS: BP 148/92
--- NOTE | 2018-02-14 20:28 | NUR ---
COREG GIVEN PO. PT TOLERATED WELL. BS 144. NO INSULIN COVERAGE NEEDED.
[2018-02-14 20:58] LABS: CREATINE KINASE MB 6.5 ng/mL (0-3.6)
--- NOTE | 2018-02-14 23:46 | NUR ---
LASIX GIVEN IVP. PT TOLERATED WELL.
[2018-02-15] VITALS: BP 145/89
[2018-02-15] MEDS: ALBUTEROL 0.083% 2.5 MG/3 ML NEBU INH SCH ×4 (01:03→19:46)
--- NOTE | 2018-02-15 02:10 | NUR ---
PT SLEEPING COMFORTABLY IN BED. NO S/S OF DISTRESS NOTED. RESPIRATIONS EVEN, UNLABORED, AND WNL. WILL CONTINUE TO MONITOR.
--- NOTE | 2018-02-15 03:50 | NUR ---
PT SLEEPING COMFORTABLY RIGHT LATERAL. NO S/S OF DISTRESS NOTED. NO COMPLAINTS OF PAIN. NO SOB. NO N/V. WILL CONTINUE TO MONITOR.
[2018-02-15 04:00] VITALS: BP 146/88
[2018-02-15] MEDS: FUROSEMIDE 40 MG/4 ML VIAL IVP SCH ×3 (05:03→17:20)
--- NOTE | 2018-02-15 05:03 | NUR ---
LASIX GIVEN IVP. PT TOLERATED WELL.
[2018-02-15] MEDS: BLOOD GLUCOSE MONITORING 1 DEV DEV FS SCH ×4 (05:45→20:53)
--- NOTE | 2018-02-15 05:45 | NUR ---
BS 143. NO INSULIN COVERAGE NEEDED.
[2018-02-15 05:59] LABS: BASOPHILS # (AUTO) 0.1 K/uL (0.00-0.22); BASOPHILS % (AUTO) 1.2 % (0.0-2.0); EOSINOPHILS % (AUTO) 0.5 % (0.0-4.0); HEMATOCRIT 36.2 % (36-52); HEMOGLOBIN 10.9 g/dL (12.0-18.0); LYMPHOCYTES % (AUTO) 15.3 % (20.5-51.1); MEAN CORPUSCULAR HEMOGLOBIN 24 pg (27-31); MEAN CORPUSCULAR HGB CONC 30 g/dL (33-37); MEAN CORPUSCULAR VOLUME 78.7 fL (80-94); MONOCYTES # (AUTO) 0.5 K/uL (0.8-1.0); MONOCYTES % (AUTO) 7.1 % (1.7-9.3); NEUTROPHILS # (AUTO) 5.1 K/uL (1.8-7.7); NEUTROPHILS % (AUTO) 75.9 % (42.2-75.2); PLATELET COUNT (AUTO) 275 K/uL (140-450); RED CELL DISTRIBUTION WIDTH 21.4 % (11.6-13.7); WHITE BLOOD COUNT (AUTO) 6.8 K/uL (4.8-10.8)
[2018-02-15] MEDS ORDERED: PNEUMOCOCCAL VACCINE 23 MCG/0.5 ML VIAL IMVAC PRN (06:30)
[2018-02-15 07:04] LABS: ALBUMIN 2.5 g/dL (3.4-5.0); ANION GAP 11.5 (8-16); CREATININE 1.9 mg/dL (0.7-1.3); POTASSIUM 3.5 mmol/L (3.5-5.1); TOTAL BILIRUBIN 1.1 mg/dL (0.0-1.0)
--- NOTE | 2018-02-15 07:04 | NUR ---
RECEIVED PATIENT ON ROOM AIR, O2 SAT 96%. SCHEDULED BREATHING TREATMENT ADMINISTERED. PATIENT TOLERATED TX WELL, NO ADVERSE SIDE EFFECTS. NO RESPIRATORY DISTRESS NOTED AT THIS TIME. WILL CONTINUE TO MONITOR.
--- NOTE | 2018-02-15 07:35 | NUR ---
REPORT GIVEN TO AM NURSE AT BEDSIDE. PT IN STABLE CONDITION.
--- NOTE | 2018-02-15 07:35 | NUR ---
PT REPORT RECEIVED AT BEDSIDE FROM TRAY SERVER NURSE. PT IS AWAKE AND ALERT, AND AMBULATING IN THE ROOM. NO S/S OF DISTRESS NOTED, NO C/O PAIN. 1+ PITTING EDEMA NOTED ON LUE AND LLE. IV NOTED ON R WRIST, 20 GAUGE, SALINE LOCK. PT ON ROOM AIR. BED IN LOW POSITION, CALL LIGHT WITHIN REACH. WILL CONTINUE TO MONITOR.
[2018-02-15 08:00] VITALS: BP 125/80
[2018-02-15] MEDS: CARVEDILOL 12.5 MG TAB PO SCH ×2 (08:54→20:49)
[2018-02-15] MEDS: ATORVASTATIN 20 MG TAB PO SCH (08:54)
[2018-02-15] MEDS: SPIRONOLACTONE 25 MG TAB PO SCH ×2 (08:55→17:20)
[2018-02-15] MEDS: ASPIRIN 81 MG TAB.CHEW PO SCH (08:55)
[2018-02-15] MEDS: LISINOPRIL 20 MG TAB PO SCH (08:55)
[2018-02-15] MEDS: ENOXAPARIN 40 MG/0.4 ML SYR SUBQ SCH (08:57)
--- NOTE | 2018-02-15 10:23 | NUR ---
PT NAPPING AT THIS TIME, NO S/S OF DISTRESS, NO SOB. PT ATE 100% OF HIS BREAKFAST. WILL CONTINUE TO MONITOR.
--- NOTE | 2018-02-15 10:45 | NUR ---
PT BEING SEEN BY DR GREEN AT THIS TIME. WALKING AROUND THE UNIT. PT TOLERATING WELL, IS STABLE ON HIS FEET.
[2018-02-15] MEDS ORDERED: POTASSIUM CHLORIDE 10 MEQ TABER PO SCH (11:00)
[2018-02-15 12:00] VITALS: BP 111/75
--- NOTE | 2018-02-15 13:39 | NUR ---
SCHEDULED BREATHING TREATMENT ADMINISTERED. NO RESPIRATORY DISTRESS NOTED AT THIS TIME. WILL CONTINUE TO MONITOR.
--- NOTE | 2018-02-15 15:13 | NUR ---
Executive Assistant To General Counsel Note: I faxed inquiry [facility]. Per Kenia from [facility] , they will send a nurse to patient's home on Sunday02/17/18 and will contact [facility] for authorization.
[2018-02-15 16:00] VITALS: BP 126/87
--- NOTE | 2018-02-15 17:11 | NUR ---
PT GETTING LUE VENOUS ULTRASOUND AT THIS TIME
[2018-02-15] MEDS: INSULIN LISPRO SLIDING SCALE 100 UNITS/ML VIAL SUBQ PRN ×2 (17:13→20:53)
--- NOTE | 2018-02-15 17:59 | NUR ---
PT SEEN BY DR. BOOTH. DR BOOTH WANTS TO KEEP PT ANOTHER 1-2 NIGHTS DUE TO HIS ELEVATED BNP LEVEL (1350) ON 02/13.
--- NOTE | 2018-02-15 19:35 | NUR ---
REPORT GIVEN AT BEDSIDE TO BANK SALES AND SERVICE MANAGER NURSE. PT ENDORSED IN STABLE CONDITION.
--- NOTE | 2018-02-15 19:36 | NUR ---
RECEIVED REPORT FROM DAYSHIFT NURSE AT BEDSIDE FOR CONTINUITY OF CARE. PT AAOX4. PT IV NOTED R WRIST 20G SALINE LOCK. NO SOB NO S/S OF DISTRESS ON RA. BED LOWERED CALL LIGHT WITHIN REACH WILL CONTINUE TO MONITOR.
[2018-02-15 20:00] VITALS: BP 132/82
[2018-02-16] VITALS: BP 112/69
[2018-02-16] MEDS: FUROSEMIDE 40 MG/4 ML VIAL IVP SCH ×3 (00:49→18:04)
[2018-02-16] MEDS: ALBUTEROL 0.083% 2.5 MG/3 ML NEBU INH SCH ×4 (01:06→19:07)
[2018-02-16 04:00] VITALS: BP 144/80
--- NOTE | 2018-02-16 07:20 | NUR ---
ENDORSED REPORT TO DAYSHIFT NURSE AT BEDSIDE FOR CONTINUITY OF CARE.
--- NOTE | 2018-02-16 07:30 | NUR ---
RECEIVED PATIENT FROM THE PLANT ETIOLOGIST RN BY HIS BEDSIDE. PATIENT IS ALERT AND ORIENTED. PATIENT IS LYING ON THE BED COMFORTABLY WITHOUT ANY COMPLAINT OF PAIN OR DISTRESS AT THIS TIME. IV IS LOCATED ON R WRIST 20G, NO COMPLAINT OF PAIN ON THE SITE. NO REDNESS SEEN. SKIN IS INTACT AND WARM. PATIENT HAS EVEN, UNLABORED RESPIRATION ON ROOM AIR. PATIENT IS ON TELE MONITOR, SKIN INTACT. PATIENT AMBULATES TO USE THE RESTROOM INDEPENDENTLY. PATIENT HAS BEEN ORIENTED TO THE RN, CALL LIGHT, AND PLAN OF CARE AT THIS TIME.
[2018-02-16 08:00] VITALS: BP 176/113
[2018-02-16 08:03] LABS: HEMATOCRIT 37.2 % (36-52); MONOCYTES # (AUTO) 0.7 K/uL (0.8-1.0)
[2018-02-16 08:06] LABS: BASOPHILS % (AUTO) 0.5 % (0.0-2.0); EOSINOPHILS % (AUTO) 0.6 % (0.0-4.0); HEMOGLOBIN 11.5 g/dL (12.0-18.0); LYMPHOCYTES # (AUTO) 1.4 K/uL (2.0-11.5); LYMPHOCYTES % (AUTO) 20.7 % (20.5-51.1); MEAN CORPUSCULAR HEMOGLOBIN 24 pg (27-31); MEAN CORPUSCULAR HGB CONC 31 g/dL (33-37); MEAN CORPUSCULAR VOLUME 78.6 fL (80-94); MONOCYTES % (AUTO) 10.6 % (1.7-9.3); NEUTROPHILS # (AUTO) 4.5 K/uL (1.8-7.7); NEUTROPHILS % (AUTO) 67.6 % (42.2-75.2); PLATELET COUNT (AUTO) 272 K/uL (140-450); RED BLOOD CELL COUNT(AUTO) 4.73 MIL/uL (4.20-6.10); RED CELL DISTRIBUTION WIDTH 21.3 % (11.6-13.7); WHITE BLOOD COUNT (AUTO) 6.6 K/uL (4.8-10.8)
[2018-02-16 08:56] LABS: ALBUMIN 2.7 g/dL (3.4-5.0); ANION GAP 14.2 (8-16); CREATININE 2.3 mg/dL (0.7-1.3); POTASSIUM 4.2 mmol/L (3.5-5.1); TOTAL BILIRUBIN 1.1 mg/dL (0.0-1.0)
[2018-02-16] MEDS: ASPIRIN 81 MG TAB.CHEW PO SCH (09:16)
[2018-02-16] MEDS: POTASSIUM CHLORIDE 10 MEQ TABER PO SCH (09:17)
[2018-02-16] MEDS: ATORVASTATIN 20 MG TAB PO SCH (09:17)
[2018-02-16] MEDS: SPIRONOLACTONE 25 MG TAB PO SCH (09:21)
[2018-02-16] MEDS: CARVEDILOL 12.5 MG TAB PO SCH ×2 (09:21→21:11)
[2018-02-16] MEDS: ENOXAPARIN 40 MG/0.4 ML SYR SUBQ SCH (09:22)
[2018-02-16] MEDS: LISINOPRIL 20 MG TAB PO SCH (09:22)
--- NOTE | 2018-02-16 09:26 | NUR ---
SPIRALACTONE D/C PER DR. BOOTH. DR. BOOTH SPOKE WITH PATIENT REGARDING HIS PLAN OF CARE. ADMINISTERED ALL OF THE MORNING MEDICATION EXCEPT SPIROLACTONE. PATIENT TOLERATED WELL.
--- NOTE | 2018-02-16 10:00 | NUR ---
DR. GREEN CAME IN AND SAW THE PATIENT. HE REQUESTED THE PATIENT TO SIT ON THE CHAIR TO HELP WITH THE FLUID RETENTION. PATIENT IS AWARE.
--- NOTE | 2018-02-16 11:00 | NUR ---
PATIENT IS AMBULATING AROUND THE HALLWAY. PATIENT IS TOLERATING WELL.
[2018-02-16] MEDS: BLOOD GLUCOSE MONITORING 1 DEV DEV FS SCH ×3 (11:30→20:52)
--- NOTE | 2018-02-16 11:39 | NUR ---
PATIENT IS SITTING ON THE CHAIR. PATIENT STATES THAT HE IS NOT IN ANY PAIN. TOLD THE PATIENT THAT THE CT SCAN ABD AND CHEST WAS ORDERED AND THAT THE CMM OPERATOR WILL BE COMING IN SHORTLY TO GIVE ORAL FLUIDS FOR THE PROCEDURE. PATIENT UNDERSTOOD.
[2018-02-16 12:43] VITALS: BP 134/83
[2018-02-16] MEDS: INSULIN LISPRO SLIDING SCALE 100 UNITS/ML VIAL SUBQ PRN ×2 (12:50→21:14)
[2018-02-16] MEDS ORDERED: METOLAZONE 2.5 MG TAB PO SCH (13:30)
--- NOTE | 2018-02-16 13:37 | NUR ---
PATIENT IS AWAKE LYING ON HIS BED. HE DENIES ANY PAIN. HE STATED THAT HE FEELS "WEIRD" AROUND THE IV SITE WHICH IS LOCATED ON THE R WRIST. HE DENIES ANY PAIN AND DOES NOT FEEL WARM TO THE TOUCH. FLUSHED WITH 5ML OF NS AND PATIENT DENIES ANY PAIN FROM FLUSH. FLUSHED 5ML WITHOUT ANY LEAKAGE FROM THE SITE. SECURE THE IV WITH TAPE AND REASSURE THE PATIENT. WILL CONTINUE TO MONITOR THE IV SITE.
[2018-02-16] MEDS ORDERED: FUROSEMIDE 40 MG/4 ML VIAL IVP SCH (14:00)
--- NOTE | 2018-02-16 14:31 | NUR ---
SPOKE WITH LICENSED FINAL EXPENSE AGENTS REGARDING THE CT SCAN. TOLD HER THAT THE PATIENT IS ON 1500ML FLUID RESTRICTION PER DR. BOOTH AND WILL BE ADMINISTERING 60MG LASIX IVP NOW. KONRAD IS AWARE
--- NOTE | 2018-02-16 14:50 | NUR ---
IV INFILTRATED. RESTARTED ANOTHER ON R FA 22G. 1 ATTEMPT. REMOVED THE OLD WRIST IV. CANNULA INTACT. NO SIGNS OF BLEEDING. PT TOLERATED WELL.
[2018-02-16 16:00] VITALS: BP 131/83
--- NOTE | 2018-02-16 16:17 | NUR ---
BS143 NO INSULIN COVERAGE NEEDED.
[2018-02-16] MEDS ORDERED: KCL 20 MEQ/WATER INJ PREMIX 100 ML IV PRN (16:45)
[2018-02-16] MEDS ORDERED: MAG SULF 2000 MG/WATER PREMIX 50 ML IV PRN (16:45)
[2018-02-16] MEDS: METOLAZONE 2.5 MG TAB PO SCH (17:22)
--- NOTE | 2018-02-16 17:31 | NUR ---
PATIENT STATED THAT PATIENT IS HAVE SOB. CHECKED SAT O2. HIS O2 WAS 96%, RAISED HOB. HE IS ABOUT TO GO TO CT, AFTER HE COMES BACK TO THE UNIT, RT WILL CALLED TO GIVE BREATHING TREATMENT.
--- NOTE | 2018-02-16 17:42 | NUR ---
MATCHER OFFBEARER HERE TO TAKE PT TO RADIOLOGY FOR CT.
--- NOTE | 2018-02-16 18:10 | NUR ---
PATIENT IS BACK FROM THE CT SCAN. PATIENT STATED THAT HE DOES NOT HAVE SOB ANYMORE. RECHECKED SATO2 IS NOW 98%.
--- NOTE | 2018-02-16 18:20 | NUR ---
IV INFILTRATED. RESTARTED IV ON L FA 22G, SL. FLUSHING WELL. PT TOLERATED WELL. WILL CONTINUE TO MONITOR PT
--- NOTE | 2018-02-16 19:32 | NUR ---
ENDORSED PATIENT TO THE ELECTROLOG OPERATOR RN. PATIENT IS IN STABLE CONDITION AND STATES THAT HE IS NOT IN ANY PAIN AT THIS TIME. BED IS AT THE LOWEST POSITION AND CALL LIGHT IS WITHIN REACH.
[2018-02-16 20:00] VITALS: BP 113/67
--- NOTE | 2018-02-16 21:14 | NUR ---
ADMINISTERED SCHEDULED MEDICATION. INSULIN COVERAGE GIVEN FOR BS 176. PT AMBULATED TO BATHROOM, 220ML OUTPUT. PT BACK IN BED WITH NO SIGNS OR SYMPTOMS OF DISTRESS. WILL CONTINUE TO MONITOR PT.
--- NOTE | 2018-02-16 23:39 | NUR ---
PT ASLEEP IN BED. NO SIGNS OR SYMPTOMS OF DISTRESS. WILL CONTINUE TO MONITOR.
[2018-02-17] VITALS: BP 123/87
[2018-02-17] MEDS: METOLAZONE 2.5 MG TAB PO SCH ×4 (00:09→12:30)
--- NOTE | 2018-02-17 00:09 | NUR ---
ADMINISTERED SCHEDULED MEDICATION. PT TOLERATED WELL. WILL CONTINUE TO MONITOR.
[2018-02-17] MEDS: FUROSEMIDE 40 MG/4 ML VIAL IVP SCH ×3 (00:32→12:00)
--- NOTE | 2018-02-17 00:33 | NUR ---
ADMINISTERED SCHEDULED LASIX. PT TOLERATED WELL. PT RESTING COMFORTABLY IN BED. NO SIGNS OR SYMPTOMS OF DISTRESS. WILL CONTINUE TO MONITOR.
[2018-02-17] MEDS: ALBUTEROL 0.083% 2.5 MG/3 ML NEBU INH SCH ×3 (01:07→13:30)
--- NOTE | 2018-02-17 02:40 | NUR ---
PT ASLEEP IN BED. NO SIGNS OR SYMPTOMS OF DISTRESS. WILL CONTINUE TO MONITOR.
[2018-02-17 04:00] VITALS: BP 145/85
--- NOTE | 2018-02-17 05:13 | NUR ---
ADMINISTERED SCHEDULED MEDICATION. PT TOLERATED WELL. WILL CONTINUE TO MONITOR.
[2018-02-17] MEDS: BLOOD GLUCOSE MONITORING 1 DEV DEV FS SCH ×2 (05:42→12:24)
[2018-02-17] MEDS: INSULIN LISPRO SLIDING SCALE 100 UNITS/ML VIAL SUBQ PRN ×2 (05:54→12:37)
--- NOTE | 2018-02-17 05:55 | NUR ---
ADMINISTERED SCHEDULED MEDICATION. INSULIN COVERAGE GIVEN FOR BS 176. PT TOLERATED WELL. NO S/SX OF DISTRESS. WILL CONTINUE TO MONITOR.
--- NOTE | 2018-02-17 07:05 | NUR ---
ENDORSED PT TO DAY SHIFT NURSE FOR CONTINUITY OF CARE. PT IN STABLE CONDITION.
--- NOTE | 2018-02-17 07:30 | NUR ---
RECEIVED PATIENT FROM DIETETIC AIDE RN BY THE BEDSIDE FOR CONTINUITY OF CARE. PATIENT IS AWAKE AND ALERT. DENIES ANY PAIN. DOES NOT APPEAR TO BE IN ANY DISTRESS. PATIENT IS ON STRICT I&O AND HAS BEEN REEDUCATED REGARDING THE IMPORTANCE OF RECORDING ACCURATE VOLUMES OF OUTPUT. HE UNDERSTOOD. PATIENT IS ON ROOM AIR AND HAS EVEN UNLABORED BREATHING. SKIN IS INTACT AND WARM. IV ON RIGHT WRIST 22G PATENT. WILL CONTINUE TO MONITOR THE PATIENT. BED IS AT THE LOWEST POSITION AND CALL LIGHT WITHIN REACH.
[2018-02-17 08:00] VITALS: BP 137/81
[2018-02-17 08:09] LABS: BASOPHILS # (AUTO) 0.1 K/uL (0.00-0.22); BASOPHILS % (AUTO) 0.9 % (0.0-2.0); EOSINOPHILS # (AUTO) 0.1 K/uL (0-0.4); EOSINOPHILS % (AUTO) 1.1 % (0.0-4.0); HEMATOCRIT 37.1 % (36-52); HEMOGLOBIN 11.5 g/dL (12.0-18.0); LYMPHOCYTES # (AUTO) 1.3 K/uL (2.0-11.5); MEAN CORPUSCULAR HEMOGLOBIN 24 pg (27-31); MEAN CORPUSCULAR HGB CONC 31 g/dL (33-37); MEAN CORPUSCULAR VOLUME 77.5 fL (80-94); MONOCYTES # (AUTO) 0.6 K/uL (0.8-1.0); NEUTROPHILS # (AUTO) 4.3 K/uL (1.8-7.7); PLATELET COUNT (AUTO) 278 K/uL (140-450); RED BLOOD CELL COUNT(AUTO) 4.79 MIL/uL (4.20-6.10); RED CELL DISTRIBUTION WIDTH 21.1 % (11.6-13.7); WHITE BLOOD COUNT (AUTO) 6.3 K/uL (4.8-10.8)
[2018-02-17 08:23] LABS: ALBUMIN 2.8 g/dL (3.4-5.0); CARBON DIOXIDE 32.8 mmol/L (21-32); CREATININE 2.3 mg/dL (0.7-1.3); POTASSIUM 3.8 mmol/L (3.5-5.1); TOTAL BILIRUBIN 1.2 mg/dL (0.0-1.0)
[2018-02-17] MEDS ORDERED: ENOXAPARIN 30 MG/0.3 ML SYR SUBQ SCH (09:00)
[2018-02-17 09:06] LABS: LYMPHOCYTES % (AUTO) 20.7 % (20.5-51.1); MONOCYTES % (AUTO) 9.1 % (1.7-9.3); NEUTROPHILS % (AUTO) 68.2 % (42.2-75.2)
[2018-02-17] MEDS: ASPIRIN 81 MG TAB.CHEW PO SCH (09:08)
[2018-02-17] MEDS: CARVEDILOL 12.5 MG TAB PO SCH (09:09)
[2018-02-17] MEDS: POTASSIUM CHLORIDE 10 MEQ TABER PO SCH (09:09)
[2018-02-17] MEDS: ATORVASTATIN 20 MG TAB PO SCH (09:09)
[2018-02-17] MEDS: LISINOPRIL 20 MG TAB PO SCH (09:10)
--- NOTE | 2018-02-17 09:16 | NUR ---
ADMINISTERED MEDICATION TO PATIENT. PATIENT TOLERATED WELL. PATIENT VOIDED IN URINAL 300 ML. WILL CONTINUE TO MONITOR THE PATIENT. BED AT THE LOWEST POSITION AND CALL LIGHT WITHIN REACH.
--- NOTE | 2018-02-17 10:16 | NUR ---
PATIENT IS SITTING COMFORTABLY ON THE CHAIR WITHOUT ANY PAIN AT THIS TIME. PATIENT STATED THAT DR. GREEN CAME IN TO SPEAK WITH HIM REGARDING THE PLAN OF CARE. HE UNDERSTOOD. WILL CONTINUE TO MONITOR THE PATIENT.
[2018-02-17 12:00] VITALS: BP 133/78
--- NOTE | 2018-02-17 13:15 | NUR ---
PATIENT IS AWAITING FOR DISCHARGE. HE REQUESTED FOR PNEUMO VACCINE. HE REFUSED LASIX AND METOLAZONE BECAUSE HE "AFRAID I HAVE TO PEE WHILE DRIVING HOME". PATIENT STATES THAT HE WILL TAKE LASIX WHEN HE GETS HOME.
--- NOTE | 2018-02-17 14:10 | NUR ---
DISCHARGE INSTRUCTIONS GIVEN AND EXPLAINED TO PATIENT. PATIENT VERBALIZED UNDERSTANDING. IV WAS D/C, CATHETER TIP INTACT, BLEEDING CONTROLLED, ID WRIST BAND REMOVED. PATIENT DENIES PAIN AND DISCOMFORT. UP AND OUT OF BED WITHOUT ASSIST, AMBULATES WITH STEADY GAIT. ESCORTED OUT IN WHEELCHAIR TO HIS VEHICLE.
--- NOTE | 2018-02-18 12:07 | NUR ---
SPOKE WITH PATIENT ABOUT FOLLOW UP APPOINTMENT. HE SAID HE HAS AN APPOINTMENT TODAY ,02/18/18 AT 3:45 P.M AT THE [facility] OFFICE I CALLED NALLELY AT THE [facility] OFFICE ADDRESS [id number] [facility] AND CONFIRMED THE TIME AND PLACE PHONE [phone].
--- NOTE | 2018-02-18 16:27 | NUR ---
RECEIVED A CALL FROM CHRIS CUSTOMER SERVICES MANAGER. SHE RECEIVED AN AUTH FOR HOME HEALTH FOR [facility] FROM [facility].. AUTH [id number]. I CALLED [employer] AND SPOKE WITH SYLVESTER AND GAVE HER THE AUTH NUMBER,[id number].
== END 2018-02-17 14:10 | disposition home or self-care (01) | DRG 194 ==
LOC: MED 16:54 → MTU 20:24
PROVIDERS: ADMIT Hospitalist; ATTEND Hospitalist
PROC: 3E0234Z Introduction of Serum, Toxoid and Vaccine into Muscle, Percutaneous Approach (ICD-10-PCS; principal; 2018-02-15)
DX: I13.0 Hypertensive heart and chronic kidney disease with heart failure and stage 1 through stage 4 chronic kidney disease, or unspecified chronic kidney disease (principal); E11.22 Type 2 diabetes mellitus with diabetic chronic kidney disease; N18.3 Chronic kidney disease, stage 3 (moderate); I16.0 Hypertensive urgency; I50.33 Acute on chronic diastolic (congestive) heart failure; Z79.82 Long term (current) use of aspirin; Z79.84 Long term (current) use of oral hypoglycemic drugs; Z79.899 Other long term (current) drug therapy; Z86.73 Personal history of transient ischemic attack (TIA), and cerebral infarction without residual deficits; Z80.1 Family history of malignant neoplasm of trachea, bronchus and lung; Z23 Encounter for immunization
CPT/HCPCS: 36415; 71045; 71250; 80048; 80053; 82550; 82553; 82948; 83735; 83880; 84484; 85025; 87081; 90732; 93005; 93971; 94640; 96374; 99285; J1650; J1815; J1940; J2405; J7613; Q0092

== ENCOUNTER 2018-12-13 10:22 | Inpatient (IN) | payer MEDICAID, OTHER ==
[~2018-12-13] VITALS: Ht 170.2 cm; Wt 94.3 kg
[~2018-12-13 10:22] MED LIST changes: -AMLO5TAB4 PO; +AMLO5TAB6 PO
[2018-12-13 10:25] VITALS: BP 250/187
--- NOTE | 2018-12-13 10:33 | NUR ---
PT TAKEN TO BED 3.
--- NOTE | 2018-12-13 10:39 | NUR ---
ED MD MADE AWARE OF BP. MD TO SEE PT.
--- NOTE | 2018-12-13 10:46 | NUR ---
PT BIB SELF C/O SOB X2 DAYS ALONG WITH EDEMA. RR EVEN, NON-LABORED, CRACKLES AUSCULTATED IN LOWER LOBES ON EXHILATION, O2 SAT 98% ON RA, CAP REFIL <3 SEC. PT HAS LT ARM AND RT LEG 4+ PITTING EDEMA ALONG WITH ASCITES AND SCROTAL EDEMA. PT HYPERTENSIVE WITH BP AT 243/171, ER INFORMED AND AT BEDSIDE AT THIS TIME. PT DENEIS CP, HEADACHE, OR N/V. MEDHX:DM RX:SEE LIST
[2018-12-13] MEDS ORDERED: ASPIRIN 81 MG TAB.CHEW PO ONE (10:50)
[2018-12-13] MEDS ORDERED: amLODIPine 5 MG TAB PO ONE (10:50)
[2018-12-13] MEDS ORDERED: FUROSEMIDE 40 MG/4 ML VIAL IVP ONE (10:50)
[2018-12-13] MEDS ORDERED: NITROGLYCERIN 0.4 MG TAB SL ONE (10:50)
--- NOTE | 2018-12-13 11:05 | NUR ---
X-RAY AT BEDSIDE
--- NOTE | 2018-12-13 11:25 | NUR ---
ASSISTED PT USING URINAL AT THIS TIME, PT VOIDED 200ML CLEAR YELLOW URINE WITH NO ODOR.
[2018-12-13 11:50] LABS: BASOPHILS # (AUTO) 0.1 K/uL (0.00-0.22); BASOPHILS % (AUTO) 0.7 % (0.0-2.0); EOSINOPHILS # (AUTO) 0.1 K/uL (0-0.4); EOSINOPHILS % (AUTO) 1.1 % (0.0-4.0); HEMOGLOBIN 15.1 g/dL (12.0-18.0); LYMPHOCYTES # (AUTO) 0.9 K/uL (2.0-11.5); LYMPHOCYTES % (AUTO) 11.6 % (20.5-51.1); MEAN CORPUSCULAR HEMOGLOBIN 28 pg (27-31); MEAN CORPUSCULAR HGB CONC 32 g/dL (33-37); MEAN CORPUSCULAR VOLUME 90.1 fL (80-94); MONOCYTES # (AUTO) 0.5 K/uL (0.8-1.0); MONOCYTES % (AUTO) 6.5 % (1.7-9.3); NEUTROPHILS % (AUTO) 80.1 % (42.2-75.2); PLATELET COUNT (AUTO) 316 K/uL (140-450); RED BLOOD CELL COUNT(AUTO) 5.33 MIL/uL (4.20-6.10); RED CELL DISTRIBUTION WIDTH 17.2 % (11.6-13.7); WHITE BLOOD COUNT (AUTO) 7.5 K/uL (4.8-10.8)
[2018-12-13 12:08] LABS: ANION GAP 14.7 (8-16); CARBON DIOXIDE 24.2 mmol/L (21-32); CREATININE 1.7 mg/dL (0.7-1.3); POTASSIUM 3.9 mmol/L (3.5-5.1)
[2018-12-13 12:14] LABS: ALBUMIN 2.9 g/dL (3.4-5.0)
[2018-12-13] MEDS ORDERED: ONDANSETRON 4 MG/2 ML VIAL IVP PRN (13:25)
[2018-12-13] MEDS ORDERED: ACETAMINOPHEN 325 MG TAB PO PRN (13:25)
--- NOTE | 2018-12-13 13:26 | NUR ---
PT IN BED, AAOX4, COOPERATIVE, DENIES PIAN AT THIS TIME. PT STATES SWELLING HAS DECREASED. +4 PITTING EDEMA IN LT ARM AND RT LEG, + CMS IN BOTH EXTREMITIES. PT REOPORTS SOB AT THIS TIME, O2 SAT AT 98 %, RR EVEN AND NON LABORED, CRACKLES IN LOWER LOBES ON EXHALATION. PT HYPERTENSIVE AT 227/163 AT THIS TIME, ER INFORMED.
--- NOTE | 2018-12-13 13:45 | NUR ---
Patient will be admitted to care of [facility]. Admited to ICU BED 5. Belongings list completed.
--- NOTE | 2018-12-13 13:52 | NUR ---
RECEIVED PATIENT FROM YIELD IMPROVEMENT ENGINEER, ROCHELLE, FOR CONTINUITY OF CARE. PATIENT IS AAOX4, ABLE TO FOLLOW COMMANDS AND MAKE NEEDS KNOWN. PATIENT SKIN IS WARM, DRY, INTACT. HE IS ON ROOM AIR, BREATHING EVEN AND UNLABORED, DENIES SOB AT THIS TIME. PATIENT IS SR ON MONITOR, HYPERTENSIVE, SBP ABOVE 200, WAS GIVEN NITRO SUBLINGUAL IN ER. PATIENT HAS PERIPHERAL IV SITE TO RAC 20 GAUGE, ASYMPTOMATIC AND PATIENT. NO SIGNS OF DISTRESS AT THIS TIME. CALL LIGHT WITHIN REACH, WILL CONTINUE TO MONITOR.
--- NOTE | 2018-12-13 14:12 | NUR ---
IS HERE TO SEE PATIENT, UPDATED ON PATIENT'S CONDITION. WILL FOLLOW UP ON ANY ORDERS
[2018-12-13] MEDS: NACL 0.9% 1,000 ML IV SCH (14:32)
[2018-12-13] MEDS ORDERED: DEXTROSE 50% 50 ML SYR IVP PRN (14:35)
[2018-12-13] MEDS ORDERED: LABETALOL 100 MG/20 ML VIAL IV SCH (14:40)
[2018-12-13 16:00] VITALS: BP 178/129
--- NOTE | 2018-12-13 16:10 | NUR ---
PT'S BLOOD PRESSURE 181/127, HR IN LOW 70'S. DR. LAU MADE AWARE. NO NEW ORDER AT THIS TIME.
[2018-12-13] MEDS: BLOOD GLUCOSE MONITORING 1 DEV DEV FS SCH ×2 (16:19→20:08)
--- NOTE | 2018-12-13 16:39 | NUR ---
US TECH AT BEDSIDE
[2018-12-13] MEDS ORDERED: NON-FORMULARY ITEM (Spironolactone (Aldactone) 25 MG) PO SCH (17:00)
--- NOTE | 2018-12-13 17:00 | NUR ---
DR. SETH IS HERE TO SEE PATIENT, UPDATED ON PATIENT'S CONDITION
[2018-12-13] MEDS ORDERED: CLINICAL MONITORING MC PRN (17:05)
[2018-12-13] MEDS: SPIRONOLACTONE 25 MG TAB PO SCH (17:13)
[2018-12-13] MEDS: metFORMIN 500 MG TAB PO SCH (17:14)
--- NOTE | 2018-12-13 17:17 | NUR ---
STALIN DEBT COLLECTION SPECIALIST AT BEDSIDE FOR ECHOCARDIOGRAM
[2018-12-13 17:27] LABS: FREE T4 (FREE THYROXINE) 1.02 ng/dL (0.76-1.46); MAGNESIUM 1.9 mg/dL (1.8-2.4); PHOSPHORUS 3.5 mg/dL (2.5-4.9); THYROID STIMULATING HORMONE 4.61 uIU/mL (0.34-3.74)
[2018-12-13] MEDS: hydrALAZINE 20 MG/ML VIAL IVP PRN (17:56)
[2018-12-13 18:00] VITALS: BP 198/143
--- NOTE | 2018-12-13 18:01 | NUR ---
PATIENT'S BP IS 207/138, ADMINISTERED PRN HYDRALAZINE 5MG IVP, PATIENT TOLERATED WELL. WILL CONTINUE TO MONITOR
[2018-12-13 19:08] LABS: BARBITURATE, URINE NEG. ng/ml (NEG <=200); BENZODIAZEPINE, URINE NEG. ng/mL (NEG <=200); CANNABINOID, URINE NEG. ng/mL (NEG <=50); COCAINE, URINE NEG. ng/mL (NEG <=300); OPIATE, URINE NEG. ng/mL (NEG <=2000); PHENCYCLIDINE SCREEN,URINE NEG. ng/mL (NEG <=25)
--- NOTE | 2018-12-13 19:20 | NUR ---
CHANGE OF SHIFT REPORT GIVEN AT BEDSIDE BY DAY NURSE. PATIENT JOKING AND LAUGHING WITH THE STAFF. AAOX4. COHERENT. ALERT AND ORIENTED. PATIENT ON ROOM AIR. TOLERATING WELL. RESPIRATIONS SYMMETRICAL. LUNGS CLEAR BILATERALLY. HR REGULAR. BOWEL SOUNDS ACTIVE IN ALL 4 QUADRANTS. PATIENT ABLE TO USE URINAL BY SELF. RIGHT AC G20 RUNNING 20 ML OF NS IVF. IV SITE FREE OF REDNESS OR SWELLING AT THIS TIME. AFEBRILE. DENIES PAIN. NO COUGH PRESENT. PATIENT HAS EDEMA IN RIGHT ARM AND LEFT LOWER LEG. PULSES FELT IN ALL 4 EXTREMITIES. PATIENT ABLE TO MAKE NEEDS KNOWN. PATIENT ABLE TO MOVE SELF AND ASSIST IN CARE. PERRLA BILATERALLY AND SYMMETRICAL. PATIENT STATES "I HAVE BLOATING" STOMACH ROUND, SOFT NOTED. INTACT SKIN NOTED. PATIENT SCROTUM AREA IS SWOLLEN. PATIENT DENIES PAIN AT THIS TIME. PATIENT STATES BM 12/13/18 IN AM AT HIS HOME WAS LAST BM. BED IN LOWEST POSITION. SAFETY MEASURES IN PLACE. WILL CONTINUE TO MONITOR.
--- NOTE | 2018-12-13 19:30 | NUR ---
PATIENT HAS PHONE AT BEDSIDE. ASKED TO CHARGE PHONE. VSS. PATIENT WEARS GLASSES. PLACED ON BEDSIDE TABLE.
--- NOTE | 2018-12-13 19:50 | NUR ---
PATIENT USED URINAL BY SELF. OUTPUT OF URINE 150 CC. YELLOW. WILL CONTINUE TO MONITOR.
[2018-12-13 20:00] VITALS: BP 155/94
[2018-12-13] MEDS: DOCUSATE SODIUM 100 MG GELCAP PO SCH (20:08)
[2018-12-13] MEDS: CARVEDILOL 12.5 MG TAB PO SCH (20:09)
--- NOTE | 2018-12-13 20:30 | NUR ---
PATIENT GIVEN MEDICATION PER ORDERED. TOLERATED WELL. EXPLAINED MEDICATIONS AND WHY THEY ARE GIVEN. PATIENT STATES VERBALLY UNDERSTANDS. NO COUGHING OR CONCERNS WITH PO ADMINISTRATION. WILL CONTINUE TO MONITOR. DENIES PAIN AT THIS TIME.
[2018-12-13] MEDS ORDERED: FUROSEMIDE 20 MG TAB PO SCH (21:00)
--- NOTE | 2018-12-13 21:00 | NUR ---
PATIENT USED URINAL BY SELF. OUTPUT OF URINE 100 CC. YELLOW. WILL CONTINUE TO MONITOR.
--- NOTE | 2018-12-13 21:36 | NUR ---
LAB CALLED ([facility]) STATES TROPONIN 0.088.
--- NOTE | 2018-12-13 21:44 | NUR ---
CALLED RESIDENT MILAN. TO NOTIFY OF TROPONIN LEVEL 0.088. "THAT'S FINE THANK YOU". WILL CONTINUE TO MONITOR.
[2018-12-13 22:00] VITALS: BP 157/97
[2018-12-13 22:00] LABS: APPEARANCE,URINE CLEAR (CLEAR); BILIRUBIN,URINE NEGATIVE (NEGATIVE); BLOOD, URINE NEGATIVE (NEGATIVE); COLOR,URINE YELLOW (YELLOW); LEUKOCYTE ESTERASE ,URINE NEGATIVE (NEGATIVE); NITRITE, URINE NEGATIVE (NEGATIVE); PH,URINE 5.5 (5.0-9.0); UGLUCOSE NEGATIVE (NEGATIVE)
--- NOTE | 2018-12-13 22:50 | NUR ---
PATIENT USED URINAL BY SELF. OUTPUT OF URINE 150 CC. YELLOW. WILL CONTINUE TO MONITOR.
[2018-12-14] VITALS (10 sets, daily range): BP systolic 131–184; BP diastolic 66–101
--- NOTE | 2018-12-14 00:36 | NUR ---
PATIENT USED URINAL BY SELF. OUTPUT OF URINE 90 CC. YELLOW. WILL CONTINUE TO MONITOR.
--- NOTE | 2018-12-14 01:30 | NUR ---
PATIENT MONITOR NOT READING LEADS PROPERLY. REPOSITIONED LEADS. CHECKED MONITOR LINES. WILL CONTINUE TO MONITOR. VSS AT THIS TIME. BED IN LOWEST POSITION. SAFETY MEASURES IN PLACE
--- NOTE | 2018-12-14 02:51 | NUR ---
PATIENT USING URINAL AT THIS TIME.
[2018-12-14] MEDS: HYDROcodone/APAP 7.5/325 MG 1 TAB PO PRN (03:19)
--- NOTE | 2018-12-14 03:26 | NUR ---
PATIENT USED URINAL BY SELF. COLLECTED 200 CC OF CLEAR YELLOW URINE. STATS SCROTUM US HURTING 01/02. GIVEN NORCO PRESCRIBED BY . WILL F/U AND WILL CONTINUE TO MONITOR.
--- NOTE | 2018-12-14 04:50 | NUR ---
PATIENT REFUSED MORNING CARE AT THIS TIME. "I STILL WANT TO SLEEP" WILL CONTINUE TO MONITOR. NO S/S OF DISTRESS NOTED
--- NOTE | 2018-12-14 05:00 | NUR ---
LAB IN TO DRAW BLOOD
[2018-12-14 05:38] LABS: ANION GAP 10.5 (8-16); CARBON DIOXIDE 27.1 mmol/L (21-32); CREATININE 1.5 mg/dL (0.7-1.3); POTASSIUM 3.6 mmol/L (3.5-5.1)
[2018-12-14] MEDS: hydrALAZINE 20 MG/ML VIAL IVP PRN (05:44)
--- NOTE | 2018-12-14 05:44 | NUR ---
PATIENT DENIES HEADACHE. STATES ONLY PAIN IN SWOLLEN SCROTUM BUT PAIN DECREASED TO 8/10 WITH PAIN MEDICATION. WILL CONTINUE TO MONITOR.
[2018-12-14 05:47] LABS: BASOPHILS % (AUTO) 0.7 % (0.0-2.0); EOSINOPHILS # (AUTO) 0.2 K/uL (0-0.4); EOSINOPHILS % (AUTO) 3.1 % (0.0-4.0); HEMATOCRIT 41.2 % (36-52); HEMOGLOBIN 13.1 g/dL (12.0-18.0); LYMPHOCYTES # (AUTO) 0.9 K/uL (2.0-11.5); LYMPHOCYTES % (AUTO) 16.9 % (20.5-51.1); MEAN CORPUSCULAR HEMOGLOBIN 29 pg (27-31); MEAN CORPUSCULAR HGB CONC 32 g/dL (33-37); MONOCYTES # (AUTO) 0.5 K/uL (0.8-1.0); MONOCYTES % (AUTO) 8.4 % (1.7-9.3); NEUTROPHILS # (AUTO) 3.9 K/uL (1.8-7.7); NEUTROPHILS % (AUTO) 70.9 % (42.2-75.2); PLATELET COUNT (AUTO) 230 K/uL (140-450); RED BLOOD CELL COUNT(AUTO) 4.58 MIL/uL (4.20-6.10); RED CELL DISTRIBUTION WIDTH 16.5 % (11.6-13.7); WHITE BLOOD COUNT (AUTO) 5.5 K/uL (4.8-10.8)
--- NOTE | 2018-12-14 06:10 | NUR ---
LAB CALLED FOR CRITICAL VALUE TROPONIN 0.090 NOTIFIED MD MCCOY, AT 0617 "OK THANK YOU"
[2018-12-14 06:20] LABS: CHOL/HDL RATIO 2.5 (1-4.5)
[2018-12-14 06:38] LABS: MAGNESIUM 1.7 mg/dL (1.8-2.4); PHOSPHORUS 3.4 mg/dL (2.5-4.9)
[2018-12-14] MEDS: BLOOD GLUCOSE MONITORING 1 DEV DEV FS SCH ×4 (07:02→21:11)
--- NOTE | 2018-12-14 07:05 | NUR ---
RESIDENTS AT BEDSIDE DURING CHANGE OF SHIFT REPORT. MD AWARE OF SWELLING, URINE OUTPUT AND PAIN WELL BP AND WHAT WAS DONE. DOCTORS AWARE. WILL CONTINUE TO MONITOR. DAY NURSE AWARE. NO S/S OF DISTRESS NOTED. PATIENT TALKING AND LAUGHING. ABLE TO MAKE NEEDS KNOWN.
[2018-12-14] MEDS: metFORMIN 500 MG TAB PO SCH (07:48)
--- NOTE | 2018-12-14 07:59 | NUR ---
RECEIVED PATIENT ON BED.RIGHT AC 20 GAUGE IV PATENT AND INTACT.PT BP ELEVATED .RESIDENT MAKING ROUNDS AND AWARE.PT USES URINAL.NSR ON THE MONITOR..PT IS ALERT ,ORIENTED X 4.NO CO PAIN NOR ANY DISCOMFORT.
[2018-12-14] MEDS: CARVEDILOL 12.5 MG TAB PO SCH ×2 (08:41→20:59)
[2018-12-14] MEDS: ATORVASTATIN 20 MG TAB PO SCH (08:42)
[2018-12-14] MEDS: DOCUSATE SODIUM 100 MG GELCAP PO SCH ×2 (08:42→21:00)
[2018-12-14] MEDS: FAMOTIDINE 20 MG TAB PO SCH (08:43)
[2018-12-14] MEDS: amLODIPine 5 MG TAB PO SCH (08:43)
[2018-12-14] MEDS: ASPIRIN 81 MG TAB.CHEW PO SCH ×2 (08:47→08:53)
[2018-12-14] MEDS: LISINOPRIL 20 MG TAB PO SCH (08:52)
[2018-12-14] MEDS: SPIRONOLACTONE 25 MG TAB PO SCH ×2 (08:52→16:52)
[2018-12-14] MEDS ORDERED: NON-FORMULARY ITEM (Lisinopril 40 MG) PO SCH (09:00)
[2018-12-14] MEDS ORDERED: FUROSEMIDE 40 MG/4 ML VIAL IVP SCH (09:00)
[2018-12-14] MEDS ORDERED: NON-FORMULARY ITEM (Aspirin 81 MG) PO SCH (09:00)
[2018-12-14] MEDS ORDERED: MAGNESIUM OXIDE 400 MG TAB PO SCH (10:15)
--- NOTE | 2018-12-14 10:24 | NUR ---
ORDERED MEDICATION GIVEN. PATIENT TOLERATED IT. NO COMPLAINTS AT THIS TIME. ORIENTED PATIENT TO ROOM BATHROOM, CALL LIGHT, AND TV. PATIENT VERBALIZED UNDERSTANDING. SAFETY PRECAUTIONS IN PLACE, CALL LIGHT WITHIN REACH, WILL CONTINUE TO MONITOR PATIENT. Addendum: 12/14/18 at 1124 by Robbie Egan RN WRONG TIME, CORRECT TIME: 1045
--- NOTE | 2018-12-14 10:30 | NUR ---
Transferred to 106b with a monitor.No co pain nor any discomfort
--- NOTE | 2018-12-14 10:30 | NUR ---
[facility] AMBUL[facility] TO BED WITH ASSIST. PATIENT DENIES PAIN AT THIS TIME. RESPIRATIONS EVEN AND LABORED FROM EXERTION ON ROOM AIR. VS WNL. NO COMPLAINTS AT THIS TIME. UPDATED BOARD. RECEIVED REPORT FROM WAREHOUSE HANDLER AT BEDSIDE FOR CONTINUITY OF CARE. VERBALIZED PLAN OF CARE AND SCHEDULE OF TELEMETRY FLOOR, HE VERBALIZED UNDERSTANDING. PATIENT VERBALIZED UNDERSTANDING. SAFETY PRECAUTIONS IN PLACE, CALL LIGHT WITHIN REACH, WILL CONTINUE TO MONITOR PATIENT. Addendum: 12/14/18 at 1124 by Robbie Egan RN IV SITE INTACT, ASYMPTOMATIC, CURRENTLY SALINE LOCKED.
[2018-12-14] MEDS: INSULIN LISPRO SLIDING SCALE 100 UNITS/ML VIAL SUBQ PRN ×2 (12:03→21:10)
--- NOTE | 2018-12-14 12:04 | NUR ---
BLOOD SUGAR 176, COVERAGE GIVEN. PATIENT TOLERATED IT WELL. NO COMPLAINTS AT THIS TIME. ALL NEEDS MET. SAFETY PRECAUTIONS IN PLACE, CALL LIGHT WITHIN REACH, WILL CONTINUE TO MONITOR PATIENT.
--- NOTE | 2018-12-14 14:05 | NUR ---
PATIENT RESTING IN BED WITH EYES CLOSED, NO COMPLAINTS AT THIS TIME. ALL NEEDS MET. SAFETY PRECAUTION IN PLACE, CALL LIGHT WITHIN REACH, WILL CONTINUE TO MONITOR PATIENT.
[2018-12-14] MEDS: NACL 0.9% 1,000 ML IV SCH (14:30)
--- NOTE | 2018-12-14 14:30 | NUR ---
PATIENT AMBULATED TO BATHROOM WITH 1 PERSON ASSIST. PATIENT VOIDED AND HAD BM. ALL NEEDS MET AT THE MOMENT, NO COMPLAINTS AT THIS TIME. SAFETY PRECAUTIONS IN PLACE, CALL LIGHT WITHIN REACH, WILL CONTINUE TO MONITOR PATIENT.
--- NOTE | 2018-12-14 16:51 | NUR ---
BLOOD SUGAR 111, NO COVERAGE NEEDED. ORDERED MEDICATION GIVEN. PATIENT TOLERATED IT. NO COMPLAINTS AT THIS TIME. ALL NEEDS MET. SAFETY PRECAUTION IN PLACE, CALL LIGHT WITHIN REACH, WILL CONTINUE TO MONITOR PATIENT.
--- NOTE | 2018-12-14 18:00 | NUR ---
PATIENT SITTING UP IN BED EATING DINNER, NO COMPLAINTS AT THIS TIME. ALL NEEDS MET. SAFETY PRECAUTION IN PLACE, CALL LIGHT WITHIN REACH, WILL CONTINUE TO MONITOR PATIENT.
--- NOTE | 2018-12-14 19:00 | NUR ---
RECEIVED BEDSIDE REPORT FROM DAY SHIFT NURSE. PATIENT IS AWAKE, ALERT, AND COOPERATIVE. RESPIRATION EVEN UNLABORED ON ROOM AIR. NO DISTRESS NOTED. SKIN IS WARM AND DRY. IV PATENT AND INTACT. PLAN OF CARE WAS DISCUSSED. ALL SAFETY MEASURES IN PLACE. BED IS TA LOW POSITION. CALL LIGHT WITHIN REACH AND VERBALIZES ITS USE. WILL CONTINUE TO MONITOR.
--- NOTE | 2018-12-14 19:19 | NUR ---
REPORT GIVEN TO APPLIQUE SEWER NURSE AT BEDSIDE FOR CONTINUITY OF CARE. PATIENT IN STABLE CONDITION, SITTING IN BED WATCHING TV.
--- NOTE | 2018-12-14 20:00 | NUR ---
INITIAL ASSESSMENT DONE. BLE, LEFT ARM, AND SCROTUM EDEMATOUS NOTED. VITALS WERE TAKEN. PATIENT IN STABLE CONDITION. WILL CONTINUE TO MONITOR.
[2018-12-14] MEDS: FUROSEMIDE 40 MG/4 ML VIAL IVP SCH (21:00)
--- NOTE | 2018-12-14 21:00 | NUR ---
ALL SCHEDULED MEDS WERE GIVEN PER ORDER. NO ASE NOTED. WILL CONTINUE TO MONITOR.
--- NOTE | 2018-12-14 22:30 | NUR ---
PATIENT SLEEPING RESPIRATION EVEN UNLABORED ON ROOM AIR. NO DISTRESS NOTED. WILL CONTINUE TO MONITOR.
--- NOTE | 2018-12-14 23:54 | NUR ---
VITALS WERE TAKEN. PATIENT IN STABLE CONDITION. WILL CONTINUE TO MONITOR.
[2018-12-15] VITALS (7 sets, daily range): BP systolic 124–162; BP diastolic 74–102
--- NOTE | 2018-12-15 00:23 | NUR ---
PATIENT IS SINUS RITESH ON THE TELE MONITOR. RANGING 48-[address] DONG AND AWARE OF IT. WILL CONTINUE TO MONITOR.
--- NOTE | 2018-12-15 02:00 | NUR ---
CHECKED PATIENT. PATIENT SLEEPING RESPIRATION EVEN UNLABORED ON ROOM AIR. NO DISTRESS NOTED. WILL CONTINUE TO MONITOR.
--- NOTE | 2018-12-15 04:04 | NUR ---
VITALS WERE TAKEN. PATIENT IN STABLE CONDITION. NO DISTRESS NOTED. WILL CONTINUE TO MONITOR.
[2018-12-15] MEDS: BLOOD GLUCOSE MONITORING 1 DEV DEV FS SCH ×4 (06:35→20:38)
[2018-12-15 06:36] LABS: ANION GAP 13.1 (8-16); CARBON DIOXIDE 25.4 mmol/L (21-32); CREATININE 1.6 mg/dL (0.7-1.3); POTASSIUM 3.5 mmol/L (3.5-5.1)
--- NOTE | 2018-12-15 06:44 | NUR ---
PATIENT HAS BEEN SCREENED AND CATEGORIZED MODERATE NUTRITION RISK. PATIENT WILL BE SEEN WITHIN 3-5 DAYS OF ADMISSION. 12/16/18-12/18/18 MARGARETTE CORTEZ MS, RDN
[2018-12-15 06:45] LABS: MAGNESIUM 1.7 mg/dL (1.8-2.4); PHOSPHORUS 3.9 mg/dL (2.5-4.9)
[2018-12-15 06:51] LABS: BASOPHILS # (AUTO) 0.1 K/uL (0.00-0.22); BASOPHILS % (AUTO) 1.2 % (0.0-2.0); EOSINOPHILS # (AUTO) 0.1 K/uL (0-0.4); EOSINOPHILS % (AUTO) 2.9 % (0.0-4.0); HEMATOCRIT 43.1 % (36-52); HEMOGLOBIN 13.5 g/dL (12.0-18.0); LYMPHOCYTES # (AUTO) 0.9 K/uL (2.0-11.5); LYMPHOCYTES % (AUTO) 17.1 % (20.5-51.1); MEAN CORPUSCULAR HEMOGLOBIN 28 pg (27-31); MEAN CORPUSCULAR HGB CONC 31 g/dL (33-37); MEAN CORPUSCULAR VOLUME 90.2 fL (80-94); MONOCYTES # (AUTO) 0.4 K/uL (0.8-1.0); MONOCYTES % (AUTO) 7.3 % (1.7-9.3); NEUTROPHILS # (AUTO) 3.7 K/uL (1.8-7.7); NEUTROPHILS % (AUTO) 71.5 % (42.2-75.2); PLATELET COUNT (AUTO) 242 K/uL (140-450); RED BLOOD CELL COUNT(AUTO) 4.78 MIL/uL (4.20-6.10); RED CELL DISTRIBUTION WIDTH 16.6 % (11.6-13.7); WHITE BLOOD COUNT (AUTO) 5.2 K/uL (4.8-10.8)
--- NOTE | 2018-12-15 07:21 | NUR ---
ENDORSED PATIENT TO DAY SHIFT NURSE FOR CONTINUITY OF CARE. PATIENT IN STABLE CONDITION
--- NOTE | 2018-12-15 07:22 | NUR ---
REPORT RECEIVED FROM RESEARCH MICROBIOLOGIST NURSE AT BEDSIDE FOR CONTINUITY OF CARE. PATIENT AOX4, PATIENT DENIES PAIN AT THIS TIME. RESPIRATIONS EVEN AND UNLABORED ON ROOM AIR. UPDATED BOARD. VERBALIZED PLAN OF CARE , PATIENT VERBALIZED UNDERSTANDING. IV SITE INTACT, ASYMPTOMATIC, PATENT, INFUSING IVF WELL. SAFETY PRECAUTIONS IN PLACE, CALL LIGHT WITHIN REACH, WILL CONTINUE TO MONITOR PATIENT.
[2018-12-15] MEDS: FUROSEMIDE 40 MG/4 ML VIAL IVP SCH (08:28)
[2018-12-15] MEDS: ATORVASTATIN 20 MG TAB PO SCH (08:28)
[2018-12-15] MEDS: DOCUSATE SODIUM 100 MG GELCAP PO SCH ×2 (08:28→20:39)
[2018-12-15] MEDS: FAMOTIDINE 20 MG TAB PO SCH (08:29)
[2018-12-15] MEDS: ASPIRIN 81 MG TAB.CHEW PO SCH (08:29)
[2018-12-15] MEDS: SPIRONOLACTONE 25 MG TAB PO SCH ×2 (08:29→17:03)
--- NOTE | 2018-12-15 08:30 | NUR ---
PATIENT SITTING UP IN BED EATING BREAKFAST, SCHEDULED MEDICATIONS GIVEN. PATIENT TOLERATED THEM WELL. NO COMPLAINTS AT THIS TIME. ALL NEEDS MET. SAFETY PRECAUTION IN PLACE, CALL LIGHT WITHIN REACH, WILL CONTINUE TO MONITOR PATIENT.
[2018-12-15] MEDS: LISINOPRIL 20 MG TAB PO SCH (09:47)
[2018-12-15] MEDS: amLODIPine 5 MG TAB PO SCH (09:47)
[2018-12-15] MEDS: CARVEDILOL 12.5 MG TAB PO SCH ×2 (09:47→20:39)
--- NOTE | 2018-12-15 09:49 | NUR ---
SCHEDULED MEDICATIONS GIVEN. PATIENT TOLERATED THEM WELL. NO COMPLAINTS AT THIS TIME. ALL NEEDS MET. SAFETY PRECAUTION IN PLACE, CALL LIGHT WITHIN REACH, WILL CONTINUE TO MONITOR PATIENT.
[2018-12-15] MEDS: INSULIN LISPRO SLIDING SCALE 100 UNITS/ML VIAL SUBQ PRN (12:11)
--- NOTE | 2018-12-15 12:11 | NUR ---
BLOOD SUGAR 227, COVERAGE GIVEN. PATIENT TOLERATED IT. BROTHER AT BEDSIDE, UPDATED HIM ON PATIENT'S STATUS, HE VERBALIZED UNDERSTANDING. ALL NEEDS CURRENTLY MET. SAFETY PRECAUTION IN PLACE, CALL LIGHT WITHIN REACH, WILL CONTINUE TO MONITOR PATIENT.
[2018-12-15] MEDS: NACL 0.9% 1,000 ML IV SCH (12:51)
--- NOTE | 2018-12-15 14:02 | NUR ---
PATIENT RESTING IN BED, NO COMPLAINTS AT THIS TIME. WILL CONTINUE TO MONITOR PATIENT.
--- NOTE | 2018-12-15 16:15 | NUR ---
PATIENT RESTING IN BED, NO COMPLAINTS AT THIS TIME. WILL CONTINUE TO MONITOR PATIENT.
--- NOTE | 2018-12-15 18:15 | NUR ---
PATIENT'S SON CALLED, UPDATED HIM ON PT'S STATUS, HE VERBALIZED UNDERSTANDING. WILL CONTINUE TO MONITOR PATIENT.
--- NOTE | 2018-12-15 18:30 | NUR ---
LOAIZA INSERTED, PATIENT TOLERATED IT. 150 ML OF CLEAR URINE DRAINED FROM LOAIZA BAG. WILL CONTINUE TO MONITOR PATIENT.
[2018-12-15] MEDS: BUMETANIDE 1 MG TAB PO SCH (18:44)
--- NOTE | 2018-12-15 18:45 | NUR ---
ORDERED MEDICATIONS GIVEN. PATIENT TOLERATED WELL. NO COMPLAINTS AT THIS TIME. WILL CONTINUE TO MONITOR PATIENT.
--- NOTE | 2018-12-15 19:11 | NUR ---
REPORT GIVEN TO SUPERVISOR OVENS NURSE AT BEDSIDE FOR CONTINUITY OF CARE. PATIENT IN STABLE CONDITION.
--- NOTE | 2018-12-15 19:11 | NUR ---
RECIEVED PT. [id number] , NID , IV SITE INTACT AND PATENT , WITH FC - PATENT - DRAINING CLEAR U.O , ON SAFETY / FALL PREACAUTION PROTOCOL -BED ALARM ON , PLAN OF CARE DISCUSSED AND VERBALIZE UNDERSTANDING - CALL LIGHT WITH REACH , WITH NON PITTING EDEMA ON BOTH LOWER EXTREMITIES - DENIES SOB , DENIES CHEST PAIN AT THIS TIME. WILL CONT. TO MONITOR.
--- NOTE | 2018-12-15 22:00 | NUR ---
MADE ROUNDS , NI SIGNS OF DISTRESS NOTED AT THIS TIME.
[2018-12-16] VITALS: BP 140/90
--- NOTE | 2018-12-16 | NUR ---
MADE ROUNDS , NO COMPLAIN MADE AT THIS TIME , CALL LIGHT WITHIN REACH.
[2018-12-16 04:00] VITALS: BP 124/69
[2018-12-16] MEDS: HYDROcodone/APAP 7.5/325 MG 1 TAB PO PRN ×5 (05:49→23:06)
[2018-12-16] MEDS ORDERED: MAGNESIUM OXIDE 400 MG TAB PO SCH (06:00)
--- NOTE | 2018-12-16 06:00 | NUR ---
IV SITE LEAKING , REMOVED - IV CANULLA INTACT - NO ACTIVE BLEEDING NOTED .
[2018-12-16] MEDS: BLOOD GLUCOSE MONITORING 1 DEV DEV FS SCH ×4 (06:44→21:23)
--- NOTE | 2018-12-16 07:00 | NUR ---
IVF DISCONTINUED - PUT ON SALINE LOCK ORDERED.
--- NOTE | 2018-12-16 07:10 | NUR ---
ENDORSED TO AM SHIFT FOR CONT. OF CARE . WITH STABLE CONDITION.
--- NOTE | 2018-12-16 07:11 | NUR ---
REPORT RECEIVED FROM CO TEACHER NURSE AT BEDSIDE FOR CONTINUITY OF CARE. PATIENT AOX4, PATIENT C/O PAIN IN BLE. NO S/S OF DISTRESS OR SOB ON ROOM AIR. UPDATED BOARD. VERBALIZED PLAN OF CARE , PATIENT VERBALIZED UNDERSTANDING. IV SITE INTACT, ASYMPTOMATIC, PATENT, SL. PT HAS LOAIZA CATHETER RUNNING TO GRAVITY WITH URINE CLEAR URINE. SAFETY PRECAUTIONS IN PLACE, CALL LIGHT WITHIN REACH, WILL CONTINUE TO MONITOR PATIENT.
[2018-12-16 07:13] LABS: BASOPHILS % (AUTO) 0.8 % (0.0-2.0); EOSINOPHILS # (AUTO) 0.2 K/uL (0-0.4); EOSINOPHILS % (AUTO) 2.8 % (0.0-4.0); HEMATOCRIT 42.1 % (36-52); HEMOGLOBIN 13.5 g/dL (12.0-18.0); LYMPHOCYTES # (AUTO) 1.1 K/uL (2.0-11.5); LYMPHOCYTES % (AUTO) 19.8 % (20.5-51.1); MEAN CORPUSCULAR HEMOGLOBIN 29 pg (27-31); MEAN CORPUSCULAR HGB CONC 32 g/dL (33-37); MEAN CORPUSCULAR VOLUME 89.5 fL (80-94); MONOCYTES # (AUTO) 0.4 K/uL (0.8-1.0); MONOCYTES % (AUTO) 8.1 % (1.7-9.3); NEUTROPHILS # (AUTO) 3.8 K/uL (1.8-7.7); NEUTROPHILS % (AUTO) 68.5 % (42.2-75.2); PLATELET COUNT (AUTO) 258 K/uL (140-450); RED BLOOD CELL COUNT(AUTO) 4.71 MIL/uL (4.20-6.10); RED CELL DISTRIBUTION WIDTH 16.5 % (11.6-13.7); WHITE BLOOD COUNT (AUTO) 5.5 K/uL (4.8-10.8)
[2018-12-16 08:00] VITALS: BP 131/94
[2018-12-16 08:02] LABS: CARBON DIOXIDE 25.5 mmol/L (21-32)
[2018-12-16] MEDS: BUMETANIDE 1 MG TAB PO SCH ×2 (08:13→12:19)
[2018-12-16] MEDS: ASPIRIN 81 MG TAB.CHEW PO SCH (08:14)
[2018-12-16] MEDS: SPIRONOLACTONE 25 MG TAB PO SCH ×2 (08:14→17:13)
[2018-12-16] MEDS: DOCUSATE SODIUM 100 MG GELCAP PO SCH ×2 (08:14→21:27)
[2018-12-16] MEDS: POTASSIUM CHLORIDE 10 MEQ TABER PO SCH (08:14)
[2018-12-16] MEDS: FAMOTIDINE 20 MG TAB PO SCH (08:14)
[2018-12-16] MEDS: ATORVASTATIN 20 MG TAB PO SCH (08:14)
--- NOTE | 2018-12-16 08:15 | NUR ---
ORDERED MEDICATIONS GIVEN. PATIENT TOLERATED WELL. NO COMPLAINTS AT THIS TIME. WILL CONTINUE TO MONITOR PATIENT.
[2018-12-16 08:17] LABS: MAGNESIUM 1.7 mg/dL (1.8-2.4)
[2018-12-16 08:27] LABS: ANION GAP 14.2 (8-16); CREATININE 1.8 mg/dL (0.7-1.3); POTASSIUM 3.7 mmol/L (3.5-5.1)
[2018-12-16] MEDS ORDERED: METOLAZONE 5 MG TAB PO SCH ×2 (09:00→15:00)
[2018-12-16] MEDS: CARVEDILOL 12.5 MG TAB PO SCH ×2 (09:50→21:28)
[2018-12-16] MEDS: amLODIPine 5 MG TAB PO SCH (09:50)
[2018-12-16] MEDS: LISINOPRIL 20 MG TAB PO SCH (09:50)
--- NOTE | 2018-12-16 09:53 | NUR ---
ORDERED MEDICATIONS GIVEN. PT C/O PAIN IN BLE, PRN PAIN MEDICATION GIVEN. PATIENT TOLERATED MEDICATIONS WELL. NO COMPLAINTS AT THIS TIME. WILL CONTINUE TO MONITOR PATIENT.
[2018-12-16] MEDS: ALBUTEROL SULFATE/IPRATROPIU 3 ML SOL IH PRN (10:30)
[2018-12-16 12:00] VITALS: BP 138/89
--- NOTE | 2018-12-16 12:00 | NUR ---
BLOOD SUGAR 146, NO COVERAGE NEEDED. WILL CONTINUE TO MONITOR PATIENT.
[2018-12-16] MEDS ORDERED: BUMETANIDE 1 MG/4 ML VIAL IV SCH (15:10)
--- NOTE | 2018-12-16 15:25 | NUR ---
ORDERED MEDICATIONS GIVEN. PATIENT TOLERATED WELL. NO COMPLAINTS AT THIS TIME. FC EMPTIED OF 1800 ML OF CLEAR YELLOW URINE. WILL CONTINUE TO MONITOR PATIENT.
[2018-12-16 16:00] VITALS: BP 156/90
[2018-12-16] MEDS ORDERED: BUMETANIDE 1 MG TAB PO SCH (17:00)
--- NOTE | 2018-12-16 17:15 | NUR ---
ORDERED MEDICATIONS GIVEN. PATIENT TOLERATED WELL. NO COMPLAINTS AT THIS TIME. BLOOD SUGAR 125, NO COVERAGE NEEDED. WILL CONTINUE TO MONITOR PATIENT.
--- NOTE | 2018-12-16 18:50 | NUR ---
PT C/O PAIN IN BLE, PRN PAIN MEDICATION GIVEN. ALL NEEDS MET AT THIS TIME. WILL CONTINUE TO MONITOR PATIENT.
--- NOTE | 2018-12-16 19:15 | NUR ---
REPORT GIVEN TO SINGING MESSENGER NURSE AT BEDSIDE FOR CONTINUITY OF CARE. PATIENT IN STABLE CONDITION, FAMILY AT BEDSIDE. ENDORSED PAIN REASSESSMENT.
--- NOTE | 2018-12-16 19:16 | NUR ---
RECEIVED BEDSIDE REPORT FROM DAY SHIFT RN, [place], PT STABLE NO DISTRESS NOTED, IV TO R WRIST 24G, PATENT INTACT, SL, PT ON ROOM AIR, NO SOB, INITIAL ASSESSMENT DONE, ALL SAFETY PRECAUTION MET, CALL LIGHT WITHIN REACH, WILL CONTINUE TO MONITOR.
[2018-12-16 20:00] VITALS: BP 135/85
[2018-12-16] MEDS: BUMETANIDE 1 MG/4 ML VIAL IV SCH (21:24)
--- NOTE | 2018-12-16 21:40 | NUR ---
DUE MEDICATION ADMINISTERED, PT TOLERATED WELL, NO DISTRESS NOTED, CALL LIGHT WITHIN REACH, WILL CONTINUE TO MONITOR.
[2018-12-16] MEDS: INSULIN LISPRO SLIDING SCALE 100 UNITS/ML VIAL SUBQ PRN (21:41)
--- NOTE | 2018-12-16 23:06 | NUR ---
PT C/O PAIN, PAIN MEDICATION GIVEN, PT TOLERATED WELL, V/S TAKEN, WITHIN NORMAL LIMIT, CALL LIGHT WITHIN REACH, WILL CONTINUE TO MONITOR.
[2018-12-17] VITALS: BP 112/82
[2018-12-17 04:00] VITALS: BP 129/69
--- NOTE | 2018-12-17 04:08 | NUR ---
CHECKED ON PT, PT SLEEPING, VS TAKEN, CALL LIGHT WITHIN REACH, WILL CONTINUE TO MONITOR.
[2018-12-17] MEDS: BLOOD GLUCOSE MONITORING 1 DEV DEV FS SCH ×4 (05:44→21:01)
[2018-12-17 07:16] LABS: BASOPHILS % (AUTO) 0.7 % (0.0-2.0); EOSINOPHILS # (AUTO) 0.1 K/uL (0-0.4); EOSINOPHILS % (AUTO) 2.5 % (0.0-4.0); HEMATOCRIT 41.3 % (36-52); LYMPHOCYTES # (AUTO) 1.3 K/uL (2.0-11.5); LYMPHOCYTES % (AUTO) 21.9 % (20.5-51.1); MEAN CORPUSCULAR HEMOGLOBIN 28 pg (27-31); MEAN CORPUSCULAR HGB CONC 32 g/dL (33-37); MEAN CORPUSCULAR VOLUME 89.6 fL (80-94); MONOCYTES # (AUTO) 0.5 K/uL (0.8-1.0); MONOCYTES % (AUTO) 8.9 % (1.7-9.3); NEUTROPHILS # (AUTO) 3.8 K/uL (1.8-7.7); PLATELET COUNT (AUTO) 265 K/uL (140-450); RED BLOOD CELL COUNT(AUTO) 4.61 MIL/uL (4.20-6.10); RED CELL DISTRIBUTION WIDTH 16.4 % (11.6-13.7); WHITE BLOOD COUNT (AUTO) 5.7 K/uL (4.8-10.8)
--- NOTE | 2018-12-17 07:24 | NUR ---
ENDORSED PT TO DAY SHIFT NURSE HARRY RN, PT STABLE, NO DISTRESS NOTED, CALL LIGHT WITHIN REACH.
[2018-12-17 07:26] LABS: ANION GAP 10.8 (8-16); CARBON DIOXIDE 31.1 mmol/L (21-32); CREATININE 1.9 mg/dL (0.7-1.3); POTASSIUM 3.9 mmol/L (3.5-5.1)
--- NOTE | 2018-12-17 07:28 | NUR ---
RECEIVED HAND OFF REPORT FROM PM RN PT APPEARS STABLE AND IN NO APPARENT DISTRESS ALL SAFETY MEASURES ARE IN PLACE WILL CONTINUE TO MONITOR.
[2018-12-17 07:42] LABS: MAGNESIUM 1.7 mg/dL (1.8-2.4); PHOSPHORUS 4.8 mg/dL (2.5-4.9)
[2018-12-17] MEDS: ALBUTEROL SULFATE/IPRATROPIU 3 ML SOL IH PRN ×3 (07:46→21:11)
[2018-12-17 08:10] VITALS: BP 138/84
[2018-12-17] MEDS: ASPIRIN 81 MG TAB.CHEW PO SCH (09:02)
[2018-12-17] MEDS: METOLAZONE 5 MG TAB PO SCH (09:02)
[2018-12-17] MEDS: BUMETANIDE 1 MG/4 ML VIAL IV SCH (09:02)
[2018-12-17] MEDS: amLODIPine 5 MG TAB PO SCH (09:03)
[2018-12-17] MEDS: LISINOPRIL 20 MG TAB PO SCH (09:03)
[2018-12-17] MEDS: DOCUSATE SODIUM 100 MG GELCAP PO SCH ×2 (09:04→21:04)
[2018-12-17] MEDS: FAMOTIDINE 20 MG TAB PO SCH (09:04)
[2018-12-17] MEDS: CARVEDILOL 12.5 MG TAB PO SCH ×2 (09:04→21:05)
[2018-12-17] MEDS: POTASSIUM CHLORIDE 10 MEQ TABER PO SCH (09:04)
[2018-12-17] MEDS: ATORVASTATIN 20 MG TAB PO SCH (09:05)
[2018-12-17] MEDS: SPIRONOLACTONE 25 MG TAB PO SCH ×2 (09:05→17:11)
--- NOTE | 2018-12-17 09:34 | NUR ---
FREQUENT ROUNDING ON PT PT APPEARS STABLE AND IN NO APPARENT DISTRESS, ALL SAFETY MEASURES ARE IN PLACE.
--- NOTE | 2018-12-17 11:23 | NUR ---
FREQUENT ROUNDING ON PT PT APPEARS STABLE AND IN NO APPARENT DISTRESS, ALL SAFETY MEASURES ARE IN PLACE.
[2018-12-17 12:05] VITALS: BP 130/82
[2018-12-17] MEDS: INSULIN LISPRO SLIDING SCALE 100 UNITS/ML VIAL SUBQ PRN (12:31)
[2018-12-17] MEDS: HYDROcodone/APAP 7.5/325 MG 1 TAB PO PRN (13:24)
--- NOTE | 2018-12-17 13:47 | NUR ---
FREQUENT ROUNDING ON PT PT APPEARS STABLE AND IN NO APPARENT DISTRESS, ALL SAFETY MEASURES ARE IN PLACE.
[2018-12-17 16:05] VITALS: BP 134/80
--- NOTE | 2018-12-17 16:52 | NUR ---
FREQUENT ROUNDING ON PT PT APPEARS STABLE AND IN NO APPARENT DISTRESS, ALL SAFETY MEASURES ARE IN PLACE.
[2018-12-17] MEDS ORDERED: MAGNESIUM OXIDE 400 MG TAB PO SCH (18:15)
--- NOTE | 2018-12-17 19:22 | NUR ---
ENDORSED PT TO PM RN PT APPEARS STABLE AND IN NO APPARENT DISTRESS. ALL SAFETY MEASURES ARE IN PLACE
--- NOTE | 2018-12-17 19:25 | NUR ---
RECEIVED BEDSIDE REPORT FROM AM SHIFT YUSRA MCDONALD, FOR PT'S CONTINUITY OF CARE. PT IS LYING DOWN, AAOX4, ON ROOM AIR, ON COMPUTED TOMOGRAPHY TECHNICIAN, HAS RIGHT WRIST 24G SALINE LOCK, HAS OLAIZA CATH IN PLACE, SKIN IS INTACT, DENIES PAIN AT THIS TIME. EXPLAINED TO PT PARISH VISITOR ROUTINE, PT VERBALIZED UNDERSTANDING. BED IS ON LOW POSITION,SIDE RAILS ARE UP, AND CALL LIGHT IS WITHIN REACH.
[2018-12-17 20:00] VITALS: BP 135/95
[2018-12-17] MEDS ORDERED: BUMETANIDE 1 MG/4 ML VIAL IV SCH (21:00)
[2018-12-17] MEDS: BUMETANIDE 1 MG TAB PO SCH (21:05)
--- NOTE | 2018-12-17 21:05 | NUR ---
BLOOD GLUCOSE CHECKED AND CHARTED. NO INSULIN COVERAGE NEEDED. ADMINISTERED SCHEDULED AND PO MEDICATIONS ORDERED. PT TOLERATED THEM WELL. WILL CONTINUE TO MONITOR PT.
--- NOTE | 2018-12-17 21:19 | NUR ---
RECEIVED PATIENT ON ROOM AIR, PULSE OX SAT 99%. PATIENT COMPLAINS OF FEELING SHORT OF BREATH. PRN BREATHING TREATMENT ADMINISTERED. TOLERATED TX WELL WITHOUT ADVERSE SIDE EFFECTS. NO ACUTE RESPIRATORY DISTRESS NOTED AT THIS TIME. WILL CONTINUE TO MONITOR.
--- NOTE | 2018-12-17 22:40 | NUR ---
RECEIVED BEDSIDE REPORT FROM SUPERVISOR COOK HOUSE YUSRA SOLER. PT SLEEPING IN BED WITH NO SIGNS OF DISTRESS.
[2018-12-18] VITALS: BP 158/83
--- NOTE | 2018-12-18 00:45 | NUR ---
PT IS SLEEPING IN BED. REQUESTED ANOTHER BLANKET. ABLE TO MAKE NEEDS KNOWN. NO SIGNS OF DISTRESS. WILL CONTINUE TO MONITOR.
--- NOTE | 2018-12-18 02:27 | NUR ---
PT SLEEPING IN BED. NO SIGNS OF DISTRESS. NO PAIN REPORTED. NO COMPLAINTS AT THIS TIME. NO SOB
[2018-12-18 04:00] VITALS: BP 152/77
--- NOTE | 2018-12-18 04:37 | NUR ---
PT SLEEPING IN BED. VSS. NO SIGNS OF DISTRESS. WILL CONTINUE TO MONITOR.
[2018-12-18] MEDS: BLOOD GLUCOSE MONITORING 1 DEV DEV FS SCH (05:41)
--- NOTE | 2018-12-18 05:49 | NUR ---
BLOOD SUGAR 102. NO COVERAGE NEEDED. WILL CONTINUE TO MONITOR.
--- NOTE | 2018-12-18 06:09 | NUR ---
WILL ENDORSE PT TO DAYSHIFT RN. PT IN STABLE CONDITION, SLEEPING IN BED. WILL CONTINUE TO MONITOR.
--- NOTE | 2018-12-18 07:45 | NUR ---
RECEIVED HAND OFF REPORT FROM PM RN PT AWAKE IN BED PT APPEARS STABLE AND IN NO APPARENT DISTRESS. ALL SAFETY MEASURES ARE IN PLACE WILL CONTINUE TO MONITOR.
[2018-12-18 08:05] VITALS: BP 153/94
[2018-12-18] MEDS: BUMETANIDE 1 MG TAB PO SCH (08:22)
[2018-12-18] MEDS: LISINOPRIL 20 MG TAB PO SCH (08:22)
[2018-12-18] MEDS: DOCUSATE SODIUM 100 MG GELCAP PO SCH (08:22)
[2018-12-18] MEDS: HYDROcodone/APAP 7.5/325 MG 1 TAB PO PRN (08:22)
[2018-12-18] MEDS: POTASSIUM CHLORIDE 10 MEQ TABER PO SCH (08:23)
[2018-12-18] MEDS: METOLAZONE 5 MG TAB PO SCH (08:23)
[2018-12-18] MEDS: ASPIRIN 81 MG TAB.CHEW PO SCH (08:23)
[2018-12-18] MEDS: amLODIPine 5 MG TAB PO SCH (08:23)
[2018-12-18] MEDS: SPIRONOLACTONE 25 MG TAB PO SCH (08:24)
[2018-12-18] MEDS: ATORVASTATIN 20 MG TAB PO SCH (08:24)
[2018-12-18] MEDS: CARVEDILOL 12.5 MG TAB PO SCH ×2 (08:24→08:45)
[2018-12-18] MEDS: FAMOTIDINE 20 MG TAB PO SCH (08:25)
--- NOTE | 2018-12-18 08:33 | NUR ---
ACCIDENTALLY ONLY PULLED ONE TABLET OF CARVEDILOL FROM [facility] ADMINISTERED THE ONE TABLET WILL GRAB OTHER TABLET AND ADMINISTER
[2018-12-18 08:50] LABS: BASOPHILS % (AUTO) 0.8 % (0.0-2.0); EOSINOPHILS # (AUTO) 0.1 K/uL (0-0.4); EOSINOPHILS % (AUTO) 2.1 % (0.0-4.0); HEMATOCRIT 43.3 % (36-52); HEMOGLOBIN 13.8 g/dL (12.0-18.0); LYMPHOCYTES % (AUTO) 17.7 % (20.5-51.1); MEAN CORPUSCULAR HEMOGLOBIN 28 pg (27-31); MEAN CORPUSCULAR HGB CONC 32 g/dL (33-37); MEAN CORPUSCULAR VOLUME 88.9 fL (80-94); MONOCYTES # (AUTO) 0.5 K/uL (0.8-1.0); MONOCYTES % (AUTO) 8.7 % (1.7-9.3); NEUTROPHILS % (AUTO) 70.7 % (42.2-75.2); PLATELET COUNT (AUTO) 263 K/uL (140-450); RED BLOOD CELL COUNT(AUTO) 4.86 MIL/uL (4.20-6.10); WHITE BLOOD COUNT (AUTO) 5.6 K/uL (4.8-10.8)
[2018-12-18 09:17] LABS: ANION GAP 9.9 (8-16); CARBON DIOXIDE 35.1 mmol/L (21-32); CREATININE 1.9 mg/dL (0.7-1.3)
[2018-12-18] MEDS ORDERED: POTA10TE30 PO (09:50)
[2018-12-18] MEDS ORDERED: ATOR20TA40 PO (09:50)
[2018-12-18] MEDS ORDERED: AMLO5TAB6 PO (09:50)
[2018-12-18 11:12] VITALS: BP 153/94
--- NOTE | 2018-12-18 11:30 | NUR ---
ASSUMED CARE FROM BENITO . PT AAOX4. NO SOB NOTED. NO COMPLAINTS MADE. PT STATED HE WILL CALLING UBER TO TAKE HIM HOME AFTER HE EAT HIS LUNCH.
[2018-12-18 12:15] LABS: MAGNESIUM 1.7 mg/dL (1.8-2.4); PHOSPHORUS 4.3 mg/dL (2.5-4.9)
--- NOTE | 2018-12-18 12:15 | NUR ---
LOAIZA CATHETER DISCONTINUED. DRAINED 2000 MLS OF CLEAR YELLOW URINE. PT TOLERATED PROCEDURE WELL, NO COMPLAINTS MADE.
--- NOTE | 2018-12-18 12:30 | NUR ---
PT CONSUMED 75% ON LUNCH SERVED, FOOD TOLERATED WELL. IV DISCONTINUED, CANNULA TIP INTACT.
--- NOTE | 2018-12-18 12:30 | NUR ---
DISCHARGE INSTRUCTIONS GIVEN TO PT WHICH VERBALIZED FULL UNDERSTANDING OF THE INSTRUCTIONS GIVEN AND THE NEED TO FOLLOW UP WITH PCP AND TRANSITION OF CARE SPECIALIST WITHIN 7 DAYS. PT ALSO MADE AWARE THE HIS PRESCRIPTIONS ARE READY AT HIS PREFERRED PHARMACY ([facility]).
--- NOTE | 2018-12-18 13:40 | NUR ---
PT WHEELED TO THE FRONT LOBBY IN STABLE CONDITION WHERE HIS UBER RIDE IS WAITING TO TAKE HIM HOME. WORK NOTE WAS ALSO PROVIDED. PT IS D/C FROM [facility]. NO SOB NOTED. NO COMPLAINTS MADE.
== END 2018-12-18 12:40 | disposition home or self-care (01) | DRG 194 ==
LOC: MED 10:22 → MIC 13:27 → MTU 12-14 10:30
PROVIDERS: ADMIT Family Medicine; ATTEND Family Medicine
DX: I11.0 Hypertensive heart disease with heart failure (principal); J96.01 Acute respiratory failure with hypoxia; N17.0 Acute kidney failure with tubular necrosis; E43 Unspecified severe protein-calorie malnutrition; I50.43 Acute on chronic combined systolic (congestive) and diastolic (congestive) heart failure; I42.9 Cardiomyopathy, unspecified; E11.65 Type 2 diabetes mellitus with hyperglycemia; I16.1 Hypertensive emergency; Z68.32 Body mass index [BMI] 32.0-32.9, adult; E78.5 Hyperlipidemia, unspecified; Z80.1 Family history of malignant neoplasm of trachea, bronchus and lung; Z84.89 Family history of other specified conditions; Z91.19 Patient's noncompliance with other medical treatment and regimen
CPT/HCPCS: 36415; 71045; 80048; 80053; 80305; 81003; 82150; 82948; 83036; 83690; 83735; 83880; 84100; 84439; 84443; 84484; 85025; 85610; 85730; 87081; 93005; 93925; 93970; 93971; 94640; 96374; 99285; J0360; J1644; J1815; J1940; J3490; J7030; J7620; Q0092

== ENCOUNTER 2019-03-09 16:10 | Inpatient (IN) | payer SELFPAY ==
[~2019-03-09] VITALS: Ht 170.2 cm; Wt 86.2 kg
[~2019-03-09 16:10] MED LIST changes: -ALBU0.0912 INH; -ATOR20TA PO; +ATOR20TA40 PO; +POTA10TE30 PO
[2019-03-09 16:15] VITALS: BP 261/170
--- NOTE | 2019-03-09 16:18 | NUR ---
TO LOBBY A/W BED VIA WHEELCHAIR
--- NOTE | 2019-03-09 16:57 | NUR ---
W/C ASSISTED TO BED 12
--- NOTE | 2019-03-09 17:05 | NUR ---
NOTIFIED DR. ANDREWS OF PT'S CHIEF COMPLAINT, SYMPTOMS, AND CURRENT VITALS. Addendum: 03/09/19 at 1812 by APRYL CHIEF C/O FLUID RETENTION, SOB, AND BACK PAIN
--- NOTE | 2019-03-09 17:20 | NUR ---
C/O FLUID RETENTION X2 WEEKS ACCOMPANIED BY COUCH. PT HAS AUDIBLE WHEEZING ON INSP & EXP.. PT STATES HE NORMALLY TAKES LASIX BUT HE RAN OUT 2 WEEKS AGO. BREATHING IS SLIGHTLY LABORED, CRACKELS HEARD IN BILAT LOWER LOBES, ALONG WITH MOIST COUGH. O2 SAT RA IS 96%. 2+ PITTING EDEMA & ABDOMINAL WALL EDEMA NOTED. PT IS HYPERTENSIVE AT 239/159, ERMD AWARE. BED IN LOW POSITION, SIDE RAIL UP X1. PT PLACED IN GOWN, AND ON BEDSIDE MONITOR AT THIS TIME.
--- NOTE | 2019-03-09 17:30 | NUR ---
PT UNABLE TO URINATE, STATES HE CANNOT PEE AT ALL RIGHT NOW. PROVIDED HIM WITH A URINAL JUST INCASE HE IS ABLE TO GO.
[2019-03-09] MEDS ORDERED: FUROSEMIDE 100 MG/10 ML VIAL IVP ONE (18:10)
[2019-03-09] MEDS ORDERED: hydrALAZINE 20 MG/ML VIAL IVP ONE ×2 (18:10→20:05)
[2019-03-09 18:28] LABS: BASOPHILS # (AUTO) 0.1 K/uL (0.00-0.22); BASOPHILS % (AUTO) 0.8 % (0.0-2.0); EOSINOPHILS # (AUTO) 0.1 K/uL (0-0.4); EOSINOPHILS % (AUTO) 0.6 % (0.0-4.0); HEMATOCRIT 43.1 % (36-52); LYMPHOCYTES # (AUTO) 1.1 K/uL (2.0-11.5); LYMPHOCYTES % (AUTO) 10.7 % (20.5-51.1); MEAN CORPUSCULAR HEMOGLOBIN 30 pg (27-31); MEAN CORPUSCULAR HGB CONC 33 g/dL (33-37); MEAN CORPUSCULAR VOLUME 90.9 fL (80-94); MONOCYTES # (AUTO) 0.5 K/uL (0.8-1.0); MONOCYTES % (AUTO) 5.1 % (1.7-9.3); NEUTROPHILS # (AUTO) 8.5 K/uL (1.8-7.7); NEUTROPHILS % (AUTO) 82.8 % (42.2-75.2); PLATELET COUNT (AUTO) 333 K/uL (140-450); RED BLOOD CELL COUNT(AUTO) 4.74 MIL/uL (4.20-6.10); RED CELL DISTRIBUTION WIDTH 18.6 % (11.6-13.7); WHITE BLOOD COUNT (AUTO) 10.3 K/uL (4.8-10.8)
--- NOTE | 2019-03-09 18:36 | NUR ---
WAITING ON PHARMACY FOR THE HYDRALAZINE
--- NOTE | 2019-03-09 19:00 | NUR ---
PT RESTING IN BED, NO NEW NEEDS AT THIS TIME
[2019-03-09 19:03] LABS: ALBUMIN 2.7 g/dL (3.4-5.0); ANION GAP 17.6 (8-16); CARBON DIOXIDE 21.4 mmol/L (21-32); CREATININE 1.9 mg/dL (0.7-1.3); TOTAL BILIRUBIN 0.4 mg/dL (0.0-1.0)
[2019-03-09 19:13] LABS: APPEARANCE,URINE CLEAR (CLEAR); BILIRUBIN,URINE NEGATIVE (NEGATIVE); BLOOD, URINE 2+ (NEGATIVE); COLOR,URINE YELLOW (YELLOW); LEUKOCYTE ESTERASE ,URINE NEGATIVE (NEGATIVE); NITRITE, URINE NEGATIVE (NEGATIVE); UGLUCOSE NEGATIVE (NEGATIVE)
[2019-03-09 19:16] LABS: WBC,URINE 0-5 /HPF (0-5)
--- NOTE | 2019-03-09 19:26 | NUR ---
RECEIVED REPORT FROM YUSRA ARRIOLA.
--- NOTE | 2019-03-09 19:30 | NUR ---
PATIENT VOIDED 310 CLEAR, YELLOW URINE.
--- NOTE | 2019-03-09 20:03 | NUR ---
PATIENT VOIDED 412ML OF CLEAR, YELLOW URINE.
--- NOTE | 2019-03-09 20:03 | NUR ---
BLOOD PRESSURE IS 213/122. NOTIFIED ERMD OF BLOOD PRESSURE READING. WILL CONTINUE TO MONITOR.
[2019-03-09] MEDS ORDERED: NACL 0.9% 1,000 ML IV SCH (20:04)
[2019-03-09] MEDS ORDERED: HYDROcodone/APAP 5/325 MG 1 TAB TAB PO PRN (20:05)
[2019-03-09] MEDS ORDERED: ACETAMINOPHEN 325 MG TAB PO PRN (20:05)
[2019-03-09] MEDS ORDERED: DOCUSATE SODIUM 100 MG GELCAP PO PRN (20:05)
[2019-03-09] MEDS ORDERED: ZOLPIDEM 5 MG TAB PO PRN (20:05)
[2019-03-09] MEDS ORDERED: MORPHINE SULFATE 2 MG/ML SYR IVP PRN (20:05)
[2019-03-09] MEDS ORDERED: ONDANSETRON 4 MG/2 ML VIAL IM/IVP PRN (20:05)
[2019-03-09] MEDS ORDERED: LORazepam 2 MG/ML VIAL IM/IVP PRN (20:05)
[2019-03-09] MEDS ORDERED: ENALAPRILAT 2.5 MG/2 ML VIAL IVP ONE (20:05)
[2019-03-09] MEDS ORDERED: DEXTROSE 50% 50 ML SYR IVP PRN (20:10)
[2019-03-09 20:30] LABS: BARBITURATE, URINE NEG. ng/ml (NEG <=200); BENZODIAZEPINE, URINE NEG. ng/mL (NEG <=200); CANNABINOID, URINE NEG. ng/mL (NEG <=50); COCAINE, URINE NEG. ng/mL (NEG <=300); OPIATE, URINE NEG. ng/mL (NEG <=2000); PHENCYCLIDINE SCREEN,URINE NEG. ng/mL (NEG <=25)
[2019-03-09 20:34] LABS: PROTHROMBIN TIME 10.2 secs (10.8-13.4)
[2019-03-09 20:38] LABS: MAGNESIUM 1.9 mg/dL (1.8-2.4); PHOSPHORUS 3.7 mg/dL (2.5-4.9); THYROID STIMULATING HORMONE 3.05 uIU/mL (0.34-3.74)
--- NOTE | 2019-03-09 20:45 | NUR ---
PATIENT TAKEN TO CT.
--- NOTE | 2019-03-09 20:53 | NUR ---
[facility] in [facility] - 03/09/19 at 2055 by JESSICA PATIENT TAKEN TO RADIOLOGY.
--- NOTE | 2019-03-09 20:55 | NUR ---
PATIENT BACK FROM CT.
[2019-03-09] MEDS ORDERED: LABETALOL 100 MG/20 ML VIAL IV SCH (21:00)
[2019-03-09] MEDS ORDERED: ASPIRIN 325 MG TAB PO ONE (21:10)
--- NOTE | 2019-03-09 21:35 | NUR ---
Patient will be admitted to care of DR. VASQUEZ. Admited to ICU. Will go to room BED 5. Belongings list completed. Report to .
--- NOTE | 2019-03-09 21:44 | NUR ---
RECEIVED PT FORM ER VIA [facility].PT AMBULATED TOWARDS BED OF ICU 5 WITH STEADY GAIT.PT AWAKE ALERT AND ORIENTED X 4.ON ROOM AIR.INTERMITTENT PRODUCTIVE COUGHING NOTED.SR ON MONITOR.WITH PERIPHERAL IV TO RT WRIST G20 INTACT.SALINE FLUSH DONE.WITH GENERALIZED PITTING +2 EDEMA NOTED.PT ABLE TO VOID FREELY.CLEAR YELLOW URINE NOTED.DENIES PAIN.
[2019-03-09] MEDS ORDERED: ALBUTEROL SULFATE/IPRATROPIU 3 ML SOL IH PRN (21:55)
[2019-03-09] MEDS: BLOOD GLUCOSE MONITORING 1 DEV DEV FS SCH (21:57)
[2019-03-09 22:00] VITALS: BP 157/91
--- NOTE | 2019-03-09 22:30 | NUR ---
NOTIFIED DR GUERRERO OF COUGHING; ORDERED BREATHING TREATMENT. SPUTUM CULTURE SENT TO LAB.
--- NOTE | 2019-03-09 22:45 | NUR ---
DR CRUZ; PULMO ROTO ROOTER OPERATOR IN THE UNIT.PT EXAMINED.NO NEW ORDERS
[2019-03-09] MEDS ORDERED: NITROGLYCERIN 50 MG/D5W PREMIX 250 ML IV PRN (23:05)
[2019-03-09] MEDS ORDERED: D5W IV ONE (23:09)
[2019-03-09] MEDS ORDERED: NITROGLYCERIN IV ONE (23:09)
[2019-03-09] MEDS ORDERED: NITROGLYCERIN 0.4 MG TAB SL PRN (23:10)
[2019-03-09] MEDS ORDERED: LORazepam 0.5 MG TAB PO PRN (23:40)
[2019-03-10] VITALS (18 sets, daily range): BP systolic 115–164; BP diastolic 66–93
[2019-03-10] MEDS ORDERED: CARVEDILOL 12.5 MG TAB PO SCH
--- NOTE | 2019-03-10 01:07 | NUR ---
CRITICAL LAB RESULT TROPONIN 0.256; DR GUERRERO AT BEDSIDE AND RESULT REPORTED TO PHYSICIAN.TO START PT ON HEPARIN DRIP
[2019-03-10] MEDS ORDERED: hePARIN / DEXT 5% PREMIX 250 ML IV SCH ×2 (01:10→01:40)
[2019-03-10] MEDS ORDERED: HEPARIN PER PHARMACY MC PRN ×2 (01:10→13:35)
--- NOTE | 2019-03-10 02:00 | NUR ---
PHONE CALL FROM PHARMACIST RITA HOBSON; HEPARIN DRIP. TO ORDER PTT AFTER STARTING THE DRIP HEPARIN DRIP STARTED.VERIFIED WITH RN LIGIA
--- NOTE | 2019-03-10 03:13 | NUR ---
PT AWAKE; NOT IN RESPIRATORY DISTRESS.STILL WITH INTERMITTENT COUGH NOTED.ONGOING HEPARIN DRIP ORDERED.DENIES PAIN.PT ABLE TO POSITION SELF.USES URINAL
--- NOTE | 2019-03-10 04:54 | NUR ---
PTS EYES CLOSED.NO SOB NOTED ON ROOM AIR.DENIES PAIN
[2019-03-10] MEDS: ALBUTEROL SULFATE/IPRATROPIU 3 ML SOL IH SCH ×3 (05:33→19:54)
[2019-03-10] MEDS: CARVEDILOL 6.25 MG TAB PO SCH ×2 (06:33→19:47)
--- NOTE | 2019-03-10 06:43 | NUR ---
PTS CONDITION REMAINS UNCHANGED.STILL WITH INTERMITTENT PRODUCTIVE COUGHING NOTED.ON ROOM AIR.HARPER SHAVER.PT ABLE TO SELF TURN.CALL LIGHT WITHIN REACH.INSTRUCTED TO USE CALL LIGHT FOR ASSISTANCE
[2019-03-10 07:02] LABS: BASOPHILS # (AUTO) 0.1 K/uL (0.00-0.22); BASOPHILS % (AUTO) 0.6 % (0.0-2.0); EOSINOPHILS # (AUTO) 0.1 K/uL (0-0.4); EOSINOPHILS % (AUTO) 1.2 % (0.0-4.0); HEMATOCRIT 37.9 % (36-52); LYMPHOCYTES % (AUTO) 11.2 % (20.5-51.1); MEAN CORPUSCULAR HEMOGLOBIN 29 pg (27-31); MEAN CORPUSCULAR HGB CONC 32 g/dL (33-37); MEAN CORPUSCULAR VOLUME 91.4 fL (80-94); MONOCYTES # (AUTO) 0.5 K/uL (0.8-1.0); MONOCYTES % (AUTO) 5.3 % (1.7-9.3); NEUTROPHILS # (AUTO) 7.1 K/uL (1.8-7.7); NEUTROPHILS % (AUTO) 81.7 % (42.2-75.2); PLATELET COUNT (AUTO) 280 K/uL (140-450); RED BLOOD CELL COUNT(AUTO) 4.15 MIL/uL (4.20-6.10); RED CELL DISTRIBUTION WIDTH 18.4 % (11.6-13.7); WHITE BLOOD COUNT (AUTO) 8.7 K/uL (4.8-10.8)
[2019-03-10 07:21] LABS: ANION GAP 12.3 (8-16); CARBON DIOXIDE 24.7 mmol/L (21-32); CREATININE 1.7 mg/dL (0.7-1.3)
[2019-03-10 07:27] LABS: MAGNESIUM 1.6 mg/dL (1.8-2.4); PHOSPHORUS 3.8 mg/dL (2.5-4.9)
[2019-03-10] MEDS ORDERED: BENZOCAINE/MENTHOL 1 LOZ MM PRN (07:40)
[2019-03-10] MEDS: BLOOD GLUCOSE MONITORING 1 DEV DEV FS SCH ×4 (07:57→21:59)
[2019-03-10] MEDS ORDERED: metFORMIN 500 MG TAB PO SCH (08:00)
--- NOTE | 2019-03-10 08:00 | NUR ---
Received patient on bedrest. Presents in no distress. Heparin infusion in progress at 890 units/hr=8.9 ml/hr as ordered. Will continue to follow order of care as given. Continuous monitoring of heparin with lab intervention.
[2019-03-10] MEDS ORDERED: LISINOPRIL 20 MG TAB PO ONE (09:00)
[2019-03-10] MEDS ORDERED: FUROSEMIDE 20 MG TAB PO SCH (09:00)
[2019-03-10] MEDS ORDERED: ASPIRIN 81 MG TAB.CHEW PO SCH (09:00)
--- NOTE | 2019-03-10 09:04 | NUR ---
PATIENT HAS BEEN SCREENED AND CATEGORIZED HIGH NUTRITION RISK. PATIENT WILL BE SEEN WITHIN 1-2 DAYS OF ADMISSION. 03/09/19-03/11/[address]
--- NOTE | 2019-03-10 09:41 | NUR ---
LAB CALL PT TROPONIN RESULT 1.664 AND APTT IS 150.0 WAS CALL TO NOTIFY [facility] [place] ANSWER WILL NOTIFY DR. YATES.
[2019-03-10] MEDS: FUROSEMIDE 40 MG/4 ML VIAL IVP SCH ×2 (09:48→10:14)
[2019-03-10] MEDS: ASPIRIN 81 MG TAB.CHEW PO SCH (09:49)
[2019-03-10] MEDS: SPIRONOLACTONE 25 MG TAB PO SCH ×2 (09:49→17:19)
[2019-03-10] MEDS: amLODIPine 5 MG TAB PO SCH (09:51)
[2019-03-10] MEDS: POTASSIUM CHLORIDE 10 MEQ TABER PO SCH (09:51)
[2019-03-10] MEDS: LISINOPRIL 20 MG TAB PO SCH (09:52)
[2019-03-10] MEDS ORDERED: MAG SULF 2000 MG/WATER PREMIX 50 ML IV SCH (10:00)
[2019-03-10] MEDS: INSULIN LISPRO SLIDING SCALE 100 UNITS/ML VIAL SUBQ PRN ×2 (12:16→17:23)
--- NOTE | 2019-03-10 12:45 | NUR ---
Pharmacy called to inform of the Heparin not being stopped for 1 hour from the A.M. lab draw. Dr. Donovan who is covering for the patient notified and made aware that the Heparin is now off and will e restarted at the level of the lab results when done. Patient has not had any difficulty in relation to above. Pharmacy also made aware of the conversation with Dr. Donovan about the late hold. Will follow through after the 1 hour is completed with new lab results.
[2019-03-10] MEDS ORDERED: POTASSIUM CHLORIDE 40 MEQ, LIDOCAINE MPF 1% 25 MG in NACL 0.9% 250 ML IV SCH (13:00)
--- NOTE | 2019-03-10 14:15 | NUR ---
Lad results in 29.2 and protocol followed for the new Heparin infusion to be delivered according to protocol. The Heparin was set at 6.7 ml/ko=570 units/hr. Patient presents in no distress at this time and no bleeding noted as well.
--- NOTE | 2019-03-10 14:40 | NUR ---
DISCHARGE PLANNIN58 Y/O MALE PATIENT FROM HOME, WHO CAME IN DUE TO SHORTNESS OF BREATH FOR FEW WEEKS. PAST MEDICAL HISTORY INCLUDE DM, HTN AND MEDICAL NON COMPLIANCE. INITIAL DIAGNOSIS OF CHF AND RENAL FAILURE. CURRENT LABS INCLUDE WBC 8.7, H/H 12.0/37.9, NA/K 144/3.0, BUN/CREA 29/1.7, MAG 1.6 AND TROP 1.664. ON HEPARIN DRIP, PTT >150.0. CARDIO CONSULT WITH DR. ALCARAZ RE: CHF HTN. PULMO CONSULT WITH DR. CURZ RE: SOB. CXR ON ADMISSION NORMAL. US ARTERIAL BLE SHOWED MILD STENOSIS OF RIGHT DISTAL SUPERFICIAL FEMORAL ARTERY AND LEFT RECESS PEDIS ARTERY LESS THAN 50%. HEAD CT SHOWED MILD GLOBAL VOLUME LOSS AND CHRONIC MICROVASCULAR ISCHEMIC CHANGES. ABDOMINAL U/S NORMAL. DC PLAN PENDING ON PATIENT'S RESPONSE TO TREATMENT. Addendum: 03/11/19 at 1544 by Caprice Guillen CM DC PLANNING: SEEN BY PIEROGI MAKER DR ALCARAZ AND PULMONARY DR AUSTIN MONTOYA'D HEPARIN DRIP, CONTINUE MEDICATION. DC PLAN TO GO HOME TOMORROW CM TO FOLLOW Addendum: 03/12/19 at 1421 by Caprice Guillen CM DC PLANNING PT IS STABLE TO GO HOME AND HAS A DC ORDER F/U WITH PCP AND PIEROGI MAKER.
--- NOTE | 2019-03-10 19:40 | NUR ---
CHANGE OF SHIFT REPORT GIVEN AT BEDSIDE BY REGISTRY NURSE YANDEL. PATIENT TELE STATUS. ALERT AND ORIENTED X4. PERRLA BILATERAL AND SYMMETRICAL. PATIENT CLEAR SPEECH. ABLE TO MAKE NEEDS KNOWN. ABLE TO OVEY COMMANDS. ABLE TO USE URINAL BY SELF. HAS GLASSES ON. HAS PHONE AND PACKPACK AT BEDSIDE. VSS. LUNGS CLEAR. HR REGULAR. BOWEL SOUNDS ACTIVE DENIES PAIN. ROOM AIR. BLE SWELLING. DENIES PAIN. INTACT KIN. NON SKID SOCKS ON. SUPINE IN BED. ABLE TO REPOSITION SELF. USED INCENTIVE SPIROMETER BY SELF AT THIS TIME. TURNED TV ON BY SELF. RIGHT HAND 20 G. RUNNING HEPARIN 650 UNITS/HOUR (6.7 ML/HR). PTT DUE AT 1999 PER DAY NURSE. BED IN LOWEST POSITION. SAFETY MEASURES IN PLACE SIDE RAILS UP. BP CUFF ON LEFT FOREARM LOCATION. STATES WEIGHT 190LBS AT THIS TIME. DAY NURSE STATES CONSISTENT CARBOHYDRATE DIET. WILL CONTINUE TO MONITOR AT THIS TIME.
--- NOTE | 2019-03-10 19:50 | NUR ---
TOOK PO MEDICATION ORDERED BY MD WITHOUT ANY ISSUES. PATIENT ALERT AND ORIENTED X4. ABLE TO MAKE NEEDS KNOWN. ABLE TO SWALLOW PILLS BY SELF. NO COUGHING NOTED AT THIS TIME. 250 CC OF CRANBERRY JUCIE INAKE WITHOUT ANY PROBLEMS. NO SOB. NO S/S NOTED/ NO PAIN PER PATIENT. WILL CONTINUE TO MONITOR.
--- NOTE | 2019-03-10 19:52 | NUR ---
PATIENT HAS DRY COUGH INTERMITTENTLY. AGREED TO BREATHING ORDERED AT THIS TIME. RT AT BEDSIDE. PATIENT TOLERATING WELL. VSS.
--- NOTE | 2019-03-10 20:00 | NUR ---
LAB AT PATIENT BEDSIDE TO DRAW APTT. WILL FOLLOW UP WITH RESULT. VSS. NO SOB NOTED. ABLE TO MAKE NEEDS KNOWN. ABLE TO FOLLOW COMMANDS. DENIES PAIN. TOLERATED WELL.
--- NOTE | 2019-03-10 20:20 | NUR ---
patient sleeping at this time. mild snoring noted. no sob or s/s of distress noted. vss. will continue to monitor
[2019-03-10] MEDS ORDERED: ATORVASTATIN 20 MG TAB PO SCH (21:00)
--- NOTE | 2019-03-10 21:00 | NUR ---
PATIENT USED URINAL BY SELF. 140 CC OF ANIBAL COLORED URINE. CLEAR WITH NO SEDIMENT NOTED.
--- NOTE | 2019-03-10 21:30 | NUR ---
PATIENT GIVEN PO MEDICATIONS ORDERED. TOOK PILL PO WITH ICE WATER AT BEDSIDE BY SELF. TOLERATED WELL. NO COUGHING NOTED WHEN DRINKING FLUIDS. WILL CONTINUE TO MONITOR. NO SOB NOTED AND NO S/S OF DISTRESS NOTED.
[2019-03-10] MEDS: ATORVASTATIN 20 MG TAB PO SCH (21:51)
[2019-03-11] VITALS (7 sets, daily range): BP systolic 114–164; BP diastolic 68–98
--- NOTE | 2019-03-11 00:20 | NUR ---
PATIENT DRINKING HIS ICE WATER BY BEDSIDE BY SELF AND FLUSHING HIS NOSE WITH HIS RINSE AT BEDSIDE. VSS. PATIENT REPOSITIONING SELF AND MOVED UP IN BED. AFEBRILE. 2ND BLANKET GIVEN TO PATIENT. NO SOB OR S/S OF DISTRESS NOTED. WILL CONTINUE TO MONITOR.
--- NOTE | 2019-03-11 01:14 | NUR ---
PATIENT STATES HE FEELING "CONGESTED" ASKED RT IF PRN BREATHING TREATMENT. RT STATES YES. PATIENT STATES HE WILL DO ONE WHEN RT HAS TIME. RT BACK AT BEDSIDE. PATIENT ALREADY SLEEPING. WILL HAVE TREATMENT PRESENT IF PATIENT WAKES UP. NO SOB OR S/S OF DISTRESS NOTED AT THIS TIME. PATIENT APPEARS RELAXED AND SLEEPING WITH NORMAL RESPIRATIONS. UNLABORED.
--- NOTE | 2019-03-11 03:07 | NUR ---
PATIENT REPOSITIONING SELF IN BED. SLEEPING WITH MILD SNORE. VSS. UNLABORED RESPIRATIONS. WILL CONTINUE TO MONITOR.
--- NOTE | 2019-03-11 04:13 | NUR ---
LAB AT PATIENTS BEDSIDE FOR PTT DRAW
--- NOTE | 2019-03-11 04:35 | NUR ---
LAB CONTINUES TO TRY AND RETRIEVE BLOOD SAMPLE FOR APTT TEST. VEIN FINDER BEING USED. WILL CONTINUE TO ASSIST.
--- NOTE | 2019-03-11 04:40 | NUR ---
LAB RETRIEVED BLOOD DRAW FOR APTT AT THIS TIME. WILL WAIT FOR THE RESULTS.
--- NOTE | 2019-03-11 05:22 | NUR ---
280 URINE OUTPUT . PATIENT USED URINAL BY SELF. YELLOW URINE IN URINAL. CLEAR. NO PAIN NOTED. NO SOB AND NO S/S OF DISTRESS NOTED. PATIENT ABLE TO MAKE NEEDS KNOWN. WILL CONTINUE TO MONITOR.
[2019-03-11 05:29] LABS: PROTHROMBIN TIME 10.6 secs (10.8-13.4)
--- NOTE | 2019-03-11 05:44 | NUR ---
PATIENT BEING TRANSFERRED TO TELE UNIT IN AM ROOM 120 A. PATIENT WANTS TO CONTINUE SLEEPING AT THIS TIME. REFUSED TO DO MORNING CARE/SPONGE BATH AT THIS TIME. WILL ENDORSE TO TELE UNIT. PATIENT ABLE TO MAKE NEEDS KNOWN. PATIENT ABLE TO DO SELF CARE INDEPENDENTLY. PATIENT AAOX4. SPEECH CLEAR. VSS. NO SOB OR DISTRESS NOTED. WILL CONTINUE TO MONITOR.
--- NOTE | 2019-03-11 05:45 | NUR ---
PER SANITATION LABORER.PATIENT GOING TO TELE UNIT ROOM 120 A
[2019-03-11] MEDS ORDERED: BENZOCAINE/MENTHOL 1 LOZ MM SCH (06:30)
[2019-03-11 06:32] LABS: BASOPHILS # (AUTO) 0.1 K/uL (0.00-0.22); BASOPHILS % (AUTO) 0.6 % (0.0-2.0); EOSINOPHILS # (AUTO) 0.1 K/uL (0-0.4); EOSINOPHILS % (AUTO) 1.1 % (0.0-4.0); HEMATOCRIT 41.9 % (36-52); HEMOGLOBIN 13.3 g/dL (12.0-18.0); LYMPHOCYTES # (AUTO) 1.4 K/uL (2.0-11.5); LYMPHOCYTES % (AUTO) 14.5 % (20.5-51.1); MEAN CORPUSCULAR HEMOGLOBIN 29 pg (27-31); MEAN CORPUSCULAR HGB CONC 32 g/dL (33-37); MEAN CORPUSCULAR VOLUME 91.8 fL (80-94); MONOCYTES # (AUTO) 0.4 K/uL (0.8-1.0); MONOCYTES % (AUTO) 4.2 % (1.7-9.3); NEUTROPHILS # (AUTO) 7.6 K/uL (1.8-7.7); NEUTROPHILS % (AUTO) 79.6 % (42.2-75.2); PLATELET COUNT (AUTO) 300 K/uL (140-450); RED BLOOD CELL COUNT(AUTO) 4.57 MIL/uL (4.20-6.10); RED CELL DISTRIBUTION WIDTH 18.9 % (11.6-13.7); WHITE BLOOD COUNT (AUTO) 9.5 K/uL (4.8-10.8)
--- NOTE | 2019-03-11 06:35 | NUR ---
REPORT GIVEN TO DAY SHIFT TELE NURSE HARRY. PATIENT ALERT AND ORIENTED. PATIENT LAUGHING WITH NURSES AT REPORT. VSS. PATIENT HOOKED UP TO BLASTING WORKER. ON HEPARIN DRIP. ENDORSED TO DAY NURSE HARRY THAT PTT RESULT WAS STILL PENDING. ENDORSED TO HER TO FOLLOW UP WHEN RESULTED. TRANSFERRED TO TELE BED FROM ICU BED WITHOUT INJURY. PATIENT ABLE TO MAKE NEEDS KNOWN. VSS AT THIS TIME. CHART GIVEN. ALL PROPERTY GIVEN TO DAY NURSE. PATIENT WEARING GLASSES. CELL PHONE WITH PATIENT. BACK PACK WITH PATIENT AND BELONGINGS BAG WITH PATIENT. ENDORSED TO NURSE. NO S/S OF DISTRESS NOTED. NO SOB.
--- NOTE | 2019-03-11 06:45 | NUR ---
PT TRANSFERRED FROM ICU TO TELE PT PLACED ON TELE MONITOR. PT AWAKE ALERT AND SPEAKING WITH NURSES AT BEDSIDE. PT APPEARS STABLE AND IN NO APPARENT DISTRESS. PT ON HEPARIN DRIP. WILL CONTINUE TO MONITOR PT ON ROOM AIR.
[2019-03-11 06:52] LABS: MAGNESIUM 2.1 mg/dL (1.8-2.4)
[2019-03-11 07:24] LABS: ANION GAP 14.6 (8-16); CARBON DIOXIDE 24.4 mmol/L (21-32)
[2019-03-11] MEDS: ALBUTEROL SULFATE/IPRATROPIU 3 ML SOL IH SCH ×3 (07:24→19:48)
[2019-03-11] MEDS: BLOOD GLUCOSE MONITORING 1 DEV DEV FS SCH ×4 (07:30→20:42)
[2019-03-11] MEDS: ASPIRIN 81 MG TAB.CHEW PO SCH (09:07)
[2019-03-11] MEDS: amLODIPine 5 MG TAB PO SCH (09:08)
[2019-03-11] MEDS: SPIRONOLACTONE 25 MG TAB PO SCH ×2 (09:08→18:14)
[2019-03-11] MEDS: LISINOPRIL 20 MG TAB PO SCH (09:08)
[2019-03-11] MEDS: POTASSIUM CHLORIDE 10 MEQ TABER PO SCH (09:10)
[2019-03-11] MEDS: FUROSEMIDE 40 MG/4 ML VIAL IVP SCH (09:13)
--- NOTE | 2019-03-11 09:46 | NUR ---
FREQUENT ROUNDING ON PT PT APPEARS STABLE AND IN NO APPARENT DISTRESS. ALL SAFETY MEASURES ARE IN PLACE WILL CONTINUE TO MONITOR.
[2019-03-11] MEDS: CARVEDILOL 6.25 MG TAB PO SCH ×2 (10:29→18:14)
--- NOTE | 2019-03-11 11:34 | NUR ---
FREQUENT ROUNDING ON PT PT APPEARS STABLE AND IN NO APPARENT DISTRESS. ALL SAFETY MEASURES ARE IN PLACE WILL CONTINUE TO MONITOR
--- NOTE | 2019-03-11 11:34 | NUR ---
FREQUENT ROUNDING ON PT PT APPEARS STABLE AND IN NO APPARENT DISTRESS. ALL SAFETY MEASURES ARE IN PLACE. WILL CONTINUE TO MONITOR.
[2019-03-11] MEDS: INSULIN LISPRO SLIDING SCALE 100 UNITS/ML VIAL SUBQ PRN ×2 (12:05→20:54)
--- NOTE | 2019-03-11 13:20 | NUR ---
TOLERATED INCENTIVE SPIROMETRY THERAPY WELL WITHOUT ADVERSE REACTIONS NOTED ENCOURAGED PATIENT WITH ACKNOWLEDGEMENT TO USE INCENTIVE SPIROMETRY EVERY 1-2 HOURS WHILE AWAKE
--- NOTE | 2019-03-11 13:44 | NUR ---
FREQUENT ROUNDING ON PT PT APPEARS STABLE AND IN NO APPARENT DISTRESS. ALL SAFETY MEASURES ARE IN PLACE WILL CONTINUE TO MONITOR
--- NOTE | 2019-03-11 15:37 | NUR ---
FREQUENT ROUNDING ON PT PT APPEARS STABLE AND IN NO APPARENT DISTRESS ALL SAFETY MEASURES ARE IN PLACE
--- NOTE | 2019-03-11 16:32 | NUR ---
03/11/19 RD INITIAL ASSESSMENT COMPLETED PLEASE REFER TO NUTRITION ASSESSMENT UNDER CARE ACTIVITY FOR ESTIMATED NUTRITIONAL NEEDS. 1. CONTINUE CCHO DIET TOLERATED 2. RD PROVIDED EDUCATION ON CCHO DIET AND PT ACCEPTED. 3. RD TO FOLLOW-UP 5-7 DAYS, LOW RISK ANEL AVLERA, ARACELI
--- NOTE | 2019-03-11 19:24 | NUR ---
ENDORSED PT TO PM RN PT AWAKE IN BED PT APPEARS STABLE AND IN NO APPARENT DISTRESS. ALL SAFETY MEASURES ARE IN PLACE. PT ON TELE MONITOR. PT IV SALINE LOCK.
--- NOTE | 2019-03-11 19:56 | NUR ---
RECEIVED PATIENT ON ROOM AIR, PULSE OX SAT 95%. SCHEDULED BREATHING TREATMENT ADMINISTERED. TOLERATED TX WELL WITHOUT ADVERSE SIDE EFFECTS. REINFORCED EDUCATION ON INCENTIVE SPIROMETER. PATIENT PERFORMED RETURN DEMONSTRATION WITH GOOD EFFORT. NO ACUTE RESPIRATORY DISTRESS NOTED AT THIS TIME. WILL CONTINUE TO MONITOR.
--- NOTE | 2019-03-11 20:00 | NUR ---
RECEIVED PATIENT IN BED AWAKE, ALERT AND ORIENTED. PT ON ROOM AIR. NO SOB AT THIS TIME, DENIES CHEST PAIN. BLE PITTING EDEMA NOTED. PT ON TELE MONITORING. BED LOWERED WITH CALL LIGHT WITHIN REACH
[2019-03-11] MEDS: ATORVASTATIN 20 MG TAB PO SCH (20:41)
--- NOTE | 2019-03-11 23:42 | NUR ---
PT ASLEEP IN BED. NO S/S OF DISTRESS NOTED
[2019-03-12 06:03] VITALS: BP 154/95
[2019-03-12] MEDS: CARVEDILOL 6.25 MG TAB PO SCH (06:46)
[2019-03-12] MEDS: ALBUTEROL SULFATE/IPRATROPIU 3 ML SOL IH SCH ×2 (06:55→13:34)
[2019-03-12 06:57] LABS: BASOPHILS # (AUTO) 0.1 K/uL (0.00-0.22); BASOPHILS % (AUTO) 0.9 % (0.0-2.0); EOSINOPHILS # (AUTO) 0.1 K/uL (0-0.4); EOSINOPHILS % (AUTO) 1.8 % (0.0-4.0); HEMATOCRIT 39.1 % (36-52); HEMOGLOBIN 12.3 g/dL (12.0-18.0); LYMPHOCYTES # (AUTO) 1.1 K/uL (2.0-11.5); LYMPHOCYTES % (AUTO) 14.3 % (20.5-51.1); MEAN CORPUSCULAR HEMOGLOBIN 29 pg (27-31); MEAN CORPUSCULAR HGB CONC 32 g/dL (33-37); MEAN CORPUSCULAR VOLUME 92.7 fL (80-94); MONOCYTES # (AUTO) 0.6 K/uL (0.8-1.0); MONOCYTES % (AUTO) 8.2 % (1.7-9.3); NEUTROPHILS # (AUTO) 5.9 K/uL (1.8-7.7); NEUTROPHILS % (AUTO) 74.8 % (42.2-75.2); PLATELET COUNT (AUTO) 289 K/uL (140-450); RED BLOOD CELL COUNT(AUTO) 4.21 MIL/uL (4.20-6.10); RED CELL DISTRIBUTION WIDTH 18.8 % (11.6-13.7); WHITE BLOOD COUNT (AUTO) 7.9 K/uL (4.8-10.8)
[2019-03-12 06:59] LABS: CARBON DIOXIDE 24.2 mmol/L (21-32); CREATININE 1.9 mg/dL (0.7-1.3); POTASSIUM 4.2 mmol/L (3.5-5.1)
[2019-03-12 07:09] LABS: MAGNESIUM 2.1 mg/dL (1.8-2.4); PHOSPHORUS 4.2 mg/dL (2.5-4.9)
--- NOTE | 2019-03-12 07:24 | NUR ---
PT REPORT GIVEN AT BEDSIDE. PT ENDORSED IN STABLE CONDITION
--- NOTE | 2019-03-12 07:26 | NUR ---
FREQUENT ROUNDING ON PT PT APPEARS STABLE AND IN NO APPARENT DISTRESS. ALL SAFETY MEASURES ARE IN PLACE WILL CONTINUE TO MONITOR.
[2019-03-12 07:56] LABS: ALBUMIN 2.2 g/dL (3.4-5.0); BILIRUBIN,DIRECT 0.2 mg/dL (0.0-0.3); TOTAL BILIRUBIN 0.5 mg/dL (0.0-1.0)
[2019-03-12] MEDS: BLOOD GLUCOSE MONITORING 1 DEV DEV FS SCH ×2 (08:18→11:57)
[2019-03-12] MEDS: SPIRONOLACTONE 25 MG TAB PO SCH (08:25)
[2019-03-12] MEDS: ASPIRIN 81 MG TAB.CHEW PO SCH (08:25)
[2019-03-12] MEDS: LISINOPRIL 20 MG TAB PO SCH (08:26)
[2019-03-12] MEDS: amLODIPine 5 MG TAB PO SCH (08:26)
[2019-03-12] MEDS: POTASSIUM CHLORIDE 10 MEQ TABER PO SCH (08:26)
[2019-03-12] MEDS ORDERED: FURO40TA9 PO (08:29)
[2019-03-12] MEDS ORDERED: POTA10TE30 PO (08:42)
[2019-03-12] MEDS ORDERED: ATOR20TA40 PO (08:42)
[2019-03-12] MEDS ORDERED: LISI-420 PO (08:42)
[2019-03-12] MEDS ORDERED: CARV6.252 PO (08:42)
[2019-03-12] MEDS ORDERED: SPIR25TA PO (08:42)
[2019-03-12] MEDS ORDERED: ASPI81CT95 PO (08:42)
[2019-03-12] MEDS ORDERED: METF-988 PO (08:42)
[2019-03-12] MEDS ORDERED: AMLO5TAB6 PO (08:44)
--- NOTE | 2019-03-12 08:51 | NUR ---
PATIENT HAS BEEN SCREENED AND CATEGORIZED MODERATE NUTRITION RISK. PATIENT WILL BE SEEN WITHIN 3-5 DAYS OF ADMISSION. 03/14/19 03/16/[address]
[2019-03-12] MEDS ORDERED: FUROSEMIDE 40 MG TAB PO SCH (09:00)
[2019-03-12] MEDS ORDERED: FUROSEMIDE 40 MG/4 ML VIAL IVP SCH (09:00)
--- NOTE | 2019-03-12 09:05 | NUR ---
UPDATED PT ON CHANGE OF PLAN OF CARE INFORMED PT THAT HE HAS BEEN DISCHARGED. PT CALLED HE ISNT ABLE TO GET PICKED UP TIL AROUND 1500. INFORMED HIM THAT IS OK AND WE WILL PLAN FOR A 1500 DISCHARGE. PT SPOKE WITH DR. YATES ABOUT FOLLOW UP VISITS WELL HIS HOME MEDICATIONS.
--- NOTE | 2019-03-12 09:46 | NUR ---
FREQUENT ROUNDING ON PT PT APPEARS STABLE AND IN NO APPARENT DISTRESS. ALL SAFETY MEASURES ARE IN PLACE. WILL CONTINUE TO MONITOR.
[2019-03-12] MEDS ORDERED: AMLO10TA PO (10:38)
--- NOTE | 2019-03-12 11:04 | NUR ---
FREQUENT ROUNDING ON PT PT APPEARS STABLE AND IN NO APPARENT DISTRESS. ALL SAFETY MEASURES ARE IN PLACE. WILL CONTINUE TO MONITOR.
[2019-03-12] MEDS: INSULIN LISPRO SLIDING SCALE 100 UNITS/ML VIAL SUBQ PRN (12:29)
[2019-03-12 12:45] VITALS: BP 167/84
--- NOTE | 2019-03-12 13:25 | NUR ---
Air Brush Decorator Note: Per Tree Topper Janae, patient does not have health insurance coverage at this time. I met with patient at bedside. Patient reported he will have health insurance coverage starting 03/26/19. He cannot afford to pay for doctor's appt co-pay. I provided him with information on [employer], [email or web address] for community resources. I will attempt to find a free clinic for patient, make an appt for patient, and call him back, patient made aware.
--- NOTE | 2019-03-12 13:46 | NUR ---
FREQUENT ROUNDING PT APPEARS STABLE AND IN NO APPARNT DISTRESS ALL SAFETY MEASURES ARE IN PLACE WILL CONTINUE TO MONITOR.
[2019-03-12 14:59] VITALS: BP 146/85
--- NOTE | 2019-03-12 16:00 | NUR ---
REMOVED IV IV TIP INTACT REMOVED ID BAND. PT APPEARS STABLE AND IN NO APPARENT DISTRESS. ALL SAFETY MEASURES ARE IN PLACE REVIEWED DISCHARGE INSTRUCTIONS. ALL SAFETY MEASURES ARE IN PLACE. REVIEWED TO FOLLOW UP WITH [facility] REVIEWED MEDICATIONS.
--- NOTE | 2019-03-13 12:51 | NUR ---
Vp Client Services Note: I called and spoke with Justen from [facility] , address: [address] [place] [address], made an appt for patient on 03/14/19 at 9am. Justen stated patients without health insurance coverage pay $45 for visit. I called and spoke with patient, he stated he is able to pay $45 for doctor's appt and requested I email him appt information, he provided me with his email address [email or web address]. I emailed patient appt info.
== END 2019-03-12 16:00 | disposition home or self-care (01) | DRG 280 ==
LOC: MED 16:10 → MIC 20:29 → MTU 03-11 06:45
PROVIDERS: ADMIT General Practice; ATTEND General Practice
DX: I16.1 Hypertensive emergency (principal); I21.A1 Myocardial infarction type 2; N17.0 Acute kidney failure with tubular necrosis; E43 Unspecified severe protein-calorie malnutrition; I50.43 Acute on chronic combined systolic (congestive) and diastolic (congestive) heart failure; J96.21 Acute and chronic respiratory failure with hypoxia; I42.9 Cardiomyopathy, unspecified; D68.59 Other primary thrombophilia; E11.40 Type 2 diabetes mellitus with diabetic neuropathy, unspecified; E11.22 Type 2 diabetes mellitus with diabetic chronic kidney disease; T46.5X6A Underdosing of other antihypertensive drugs, initial encounter; I13.0 Hypertensive heart and chronic kidney disease with heart failure and stage 1 through stage 4 chronic kidney disease, or unspecified chronic kidney disease; R05 Cough; I45.81 Long QT syndrome; N18.9 Chronic kidney disease, unspecified; Z80.1 Family history of malignant neoplasm of trachea, bronchus and lung; Z82.0 Family history of epilepsy and other diseases of the nervous system; Z91.14 Patient's other noncompliance with medication regimen; Z91.19 Patient's noncompliance with other medical treatment and regimen; Z79.899 Other long term (current) drug therapy; Z86.73 Personal history of transient ischemic attack (TIA), and cerebral infarction without residual deficits; Z84.89 Family history of other specified conditions; Z68.29 Body mass index [BMI] 29.0-29.9, adult; Y92.89 Other specified places as the place of occurrence of the external cause
CPT/HCPCS: 36415; 70450; 71045; 76700; 80048; 80053; 80076; 80305; 81001; 82948; 83036; 83690; 83735; 83880; 84100; 84134; 84443; 84484; 85025; 85610; 85730; 87070; 87081; 87205; 87804; 93005; 93925; 93970; 93971; 94640; 96374; 96375; 96376; 97161-GP; 99291; J1644; J1940; J2001; J3475; J3480; J3490; J7030; J7620; Q0092